=== PATIENT | female | born 1980 | race Two or more races ===

== ENCOUNTER 2020-03-09 14:46 | Outpatient (REF) | payer OTHER, SELFPAY | END 2020-03-09 14:47 | disposition home or self-care (01) | LOC: HO.LAB 14:46 | PROVIDERS: PCP Internal Medicine; Visit Provider Internal Medicine | DX: Z20.822 Contact with and (suspected) exposure to COVID-19 (principal) | CPT/HCPCS: 36415; C9803; U0003 ==

== ENCOUNTER 2020-07-07 08:00 | Outpatient (REF) | payer OTHER, SELFPAY ==
[2020-07-07 08:40] LABS: MANUAL DIFF FLAG NO
[2020-07-07 08:44] LABS: Basophils Percent Auto 0.3 % (0-2); Eosinophils Absolute Auto 0.1 X10*3/uL (0.0-0.4); Eosinophils Percent Auto 1.6 % (0-4); Hematocrit 40.1 % (37-47); Hemoglobin 13.4 g/dl (12.0-16.0); Imm Gran Abs Auto 0.01 X10*3/uL (0.00-0.03); Imm Gran Pct Auto 0.2 % (0.0-0.4); Lymphocytes Absolute Auto 2.2 X10*3/uL (1.2-4.9); Lymphocytes Percent Auto 35.1 % (20-40); Mean Corpuscular HGB Conc 33.4 g/dl (31.0-35.0); Mean Corpuscular Hemoglobin 27.1 pg (27.0-33.0); Mean Platelet Volume 9.6 fL (9.4-12.3); Monocytes Absolute Auto 0.6 X10*3/uL (0.1-1.2); Monocytes Percent Auto 8.6 % (2-11); Neutrophils Absolute Auto 3.5 X10*3/uL (2.0-8.3); Neutrophils Percent Auto 54.2 % (45-73); Platelet Count 253 X10*3/uL (160-400); Red Blood Count 4.95 X10*6/uL (4.20-5.50); Red Cell Distribution Width 12.3 % (11.0-16.0); White Blood Count 6.4 X10*3/uL (4.8-10.8)
[2020-07-07 09:18] LABS: Creatinine Urine 188.21 mg/dL; Microalbum/Creatinine Ratio Ur 20.1 ug/mg cr
[2020-07-07 09:24] LABS: Alanine Aminotransferase 108 U/L (0-31); Albumin Level 4.2 g/dL (3.5-5.0); Alkaline Phosphatase 84 U/L (39-117); Anion Gap 12 (12-20); Aspartate Amino Transferase 82 U/L (5-31); Bilirubin Total 1.1 mg/dL (0.0-1.0); Blood Urea Nitrogen 10 mg/dL (9-16); Calcium 9.7 mg/dL (8.4-10.2); Carbon Dioxide 27 mmol/L (22-29); Chloride 102 mmol/L (96-108); Cholesterol 176 mg/dL; Estimated Glomerular Filt Rate > 60; Glucose Fasting 279 mg/dL (60-99); HDL Cholesterol 36 mg/dL; LDL Cholesterol Calculated 97 mg/dl; Potassium 4.3 mmol/L (3.3-5.1); Sodium 137 mmol/L (135-145); Total Protein 7.6 g/dL (6.5-8.0); Triglycerides 218 mg/dL
[2020-07-07 09:26] LABS: TSH reflex Free T4 2.15 uIU/mL (0.32-4.0)
== END 2020-07-07 08:01 | disposition home or self-care (01) ==
LOC: HO.LAB 08:00
PROVIDERS: PCP Internal Medicine; Visit Provider Internal Medicine
DX: E11.65 Type 2 diabetes mellitus with hyperglycemia (principal); E66.01 Morbid (severe) obesity due to excess calories; G43.909 Migraine, unspecified, not intractable, without status migrainosus
CPT/HCPCS: 36415; 80053; 80061; 82043; 84443; 85025

== ENCOUNTER 2020-11-25 10:20 | Outpatient (REF) | payer OTHER, SELFPAY ==
[2020-11-25 11:54] LABS: Creatinine Urine 89.54 mg/dL; Microalbum/Creatinine Ratio Ur 34.6 ug/mg cr
[2020-11-25 12:05] LABS: Alanine Aminotransferase 71 U/L (0-31); Albumin Level 4.6 g/dL (3.5-5.0); Alkaline Phosphatase 84 U/L (39-117); Anion Gap 14 (12-20); Aspartate Amino Transferase 46 U/L (5-31); Bilirubin Total 0.8 mg/dL (0.0-1.0); Blood Urea Nitrogen 11 mg/dL (9-16); Calcium 9.9 mg/dL (8.4-10.2); Carbon Dioxide 25 mmol/L (22-29); Chloride 105 mmol/L (96-108); Estimated Glomerular Filt Rate > 60; Glucose Random 261 mg/dL (60-115); Potassium 4.6 mmol/L (3.3-5.1); Sodium 139 mmol/L (135-145); Total Protein 8.1 g/dL (6.5-8.0)
== END 2020-11-25 10:21 | disposition home or self-care (01) ==
LOC: HO.HMGCLDS 10:20
PROVIDERS: PCP Internal Medicine; Visit Provider Internal Medicine
DX: L02.93 Carbuncle, unspecified (principal); E11.65 Type 2 diabetes mellitus with hyperglycemia; K76.0 Fatty (change of) liver, not elsewhere classified; E66.01 Morbid (severe) obesity due to excess calories
CPT/HCPCS: 36415; 80053; 82043

== ENCOUNTER 2021-08-30 14:22 | Emergency (ER) | payer OTHER, SELFPAY | END 2021-08-30 16:45 | disposition left against medical advice (07) | PROVIDERS: Emergency Provider Emergency Medicine; PCP Internal Medicine | DX: M54.50 Low back pain, unspecified (principal) ==

== ENCOUNTER 2021-09-01 14:13 | Emergency (ER) | payer OTHER, SELFPAY ==
--- NOTE | ~2021-09-01 | CT_ITS ---
EXAMINATION: CT ABDOMEN AND PELVIS WITHOUT CONTRAST CLINICAL INFORMATION: Right flank and back pain COMPARISON: Previous CT of the abdomen and pelvis February 2018, renal ultrasound and pelvic ultrasound February 2019 TECHNIQUE: Multidetector volumetric imaging was performed from the superior aspect of the liver through the pubic symphysis. Sagittal and coronal reformatted images were obtained on the technologist's workstation. This CT examination was performed using dose optimization techniques as appropriate, variously including the following: *Automated exposure control *Adjustment of mA and/or kV according to patient size (this includes techniques or standardized protocols for targeted exams where dose is matched to indication/reason for exam; i.e. extremities or head) *Use of iterative reconstruction technique DLP: 640 mGy-cm FINDINGS: LUNG BASES: The visualized lung bases are unremarkable. LIVER, GALLBLADDER, AND BILIARY TREE: The liver is normal in size, shape, and attenuation. No focal hepatic lesion or biliary ductal dilatation is present. The gallbladder has been removed. PANCREAS: Unremarkable. SPLEEN: Unremarkable. ADRENAL GLANDS: Unremarkable. KIDNEYS AND URETERS: There are small stones in the lower pole of the right kidney, largest measuring 2 mm. The left kidney is normal. No hydronephrosis, ureteral dilatation or ureteral stone is seen. BLADDER: Unremarkable. GASTROINTESTINAL TRACT: The small and large bowel are unremarkable. The appendix is unremarkable. ABDOMINAL WALL: Small umbilical hernia containing fat. LYMPH NODES: Normal. VASCULAR: Unremarkable. PELVIC VISCERA: Unremarkable. OSSEOUS STRUCTURES: Unremarkable. CT/CT abdomen pelvis wo con IMPRESSION: Small right renal stones. Fleischner guidelines were followed.
[2021-09-01 14:47] VITALS: BP 116/77; PULSE 98; RESP 18; TEMP 36.8; O2SAT 97; BMI 34.1
[2021-09-01 15:38] LABS: Appearance Urine CLEAR; Color Urine YELLOW; Glucose Urine UA >=1000 MG/DL (NEG); Leukocyte Esterase Urine NEG (NEG); Nitrite Urine NEG (NEG); PH 5.5 (5.0-8.0); Specific Gravity - Urine 1.025 (1.005-1.025); Urine Blood NEG (NEG); Urine Ketones 15 MG/DL (NEG); Urine Protein NEG (NEG-TRACE)
[2021-09-01 15:41] LABS: UPreg QC Valid YES; Urine Pregnancy NEGATIVE (NEGATIVE)
[2021-09-01 15:49] LABS: MANUAL DIFF FLAG NO
[2021-09-01 15:50] LABS: Basophils Percent Auto 0.4 % (0-2); Eosinophils Absolute Auto 0.1 X10*3/uL (0.0-0.4); Eosinophils Percent Auto 1.1 % (0-4); Hematocrit 38.5 % (37.0-47.0); Hemoglobin 13.4 g/dl (12.0-16.0); Imm Gran Abs Auto 0.02 X10*3/uL (0.00-0.03); Imm Gran Pct Auto 0.2 % (0.0-0.4); Lymphocytes Absolute Auto 2.8 X10*3/uL (1.2-4.9); Lymphocytes Percent Auto 32.9 % (20-40); Mean Corpuscular HGB Conc 34.8 g/dl (31.0-35.0); Mean Corpuscular Hemoglobin 27.6 pg (27.0-33.0); Mean Corpuscular Volume 79.2 fL (80.0-98.0); Mean Platelet Volume 9.6 fL (9.4-12.3); Monocytes Absolute Auto 0.6 X10*3/uL (0.1-1.2); Monocytes Percent Auto 6.6 % (2-11); Neutrophils Percent Auto 58.8 % (45-73); Platelet Count 275 X10*3/uL (160-400); Red Blood Count 4.86 X10*6/uL (4.20-5.50); Red Cell Distribution Width 12.1 % (11.0-16.0); White Blood Count 8.5 X10*3/uL (4.8-10.8)
[2021-09-01 16:01] LABS: RBC Urine 0 /HPF (0); Squamous Epithelial Cell Urine 1+ /LPF
[2021-09-01 16:02] LABS: Bacteria Urine TRACE /LPF
[2021-09-01 16:07] LABS: Alanine Aminotransferase 101 U/L (0-31); Albumin Level 4.4 g/dL (3.5-5.0); Alkaline Phosphatase 87 U/L (39-117); Anion Gap 15 (12-20); Aspartate Amino Transferase 78 U/L (5-31); Bilirubin Direct 0.3 mg/dL (0.0-0.5); Blood Urea Nitrogen 9 mg/dL (9-16); Calcium 9.3 mg/dL (8.4-10.2); Carbon Dioxide 24 mmol/L (22-29); Chloride 101 mmol/L (96-108); Creatinine Clr Calc Pharmacy 106.3; Estimated Glomerular Filt Rate > 60; Glucose Random 281 mg/dL (60-115); Lipase 40 U/L (8-78); Sodium 136 mmol/L (135-145); Total Protein 7.9 g/dL (6.5-8.0)
--- NOTE | 2021-09-01 21:46 | ED_ITS ---
HPI - General Adult General Chief complaint: General Medical Stated complaint: back pain Time Seen by Provider: 09/01/21 17:59 Source: patient Mode of arrival: ambulatory Limitations: no limitations History of Present Illness HPI narrative: This is a 41-year-old female past medical history significant for lower back pain, migraines, diabetes presenting to the emergency department with complaints of right lower back pain that at times it radiates to her right leg just above the knee x6 days. Patient does not recognize an inciting injury, tells me the pain is worse with ambulation and urinating, better at rest. Patient tells me that she has a history of herniated discs however this feels different. She tel ls me that this pain is intermittent, severe in nature. She tells me she feels very uncomfortable. She denies urinary frequency, urgency and dysuria, IV drug abuse, previous back surgeries, chest pain, shortness of breath, fevers, chills, nausea and vomiting. Patient ambulating with steady gait into the room Related Data Previous Rx's Medication Instructions Recorded blood-glucose meter (FreeStyle #1 ea 07/11/20 Lite Meter) lancets 28 gauge (FreeStyle #100 ea 07/11/20 Lancets) blood sugar diagnostic (FreeStyle #100 ea 10/13/20 Lite Strips) dulaglutide 3 mg/0.5 mL 3 mg (0.5 mL) subcut QWEEK 90 days 06/21/21 subcutaneous pen injector #6.5 mL glipizide 10 mg tablet 10 mg PO BID 90 days #180 tabs 06/21/21 epinephrine 0.3 mg/0.3 mL 0.3 mg (0.3 mL) IM Q10M PRN 06/22/21 injection, auto-injector (EpiPen) anaphylaxis 90 days #1 ea lidocaine 5 % topical patch 1 patch topical DAILY PRN pain #15 09/01/21 ea oxycodone 5 mg capsule 5 mg PO BID PRN pain #8 caps 09/01/21 prednisone 20 mg tablet 20 mg PO DAILY 5 days #5 tabs 09/01/21 Allergies Allergy/AdvReac Type Severity Reaction Status Date / Time cefazolin [CEFAZOLIN] Allergy Mild LOCALIZED Verified 09/01/21 14:51 ITCHING AT INJECTION SITE shellfish derived Allergy Mild Itching Verified 09/01/21 14:51 cephalexin [CEPHALEXIN] Allergy Unknown UNKNOWN, Verified 09/01/21 14:51 ITCHING metronidazole [Flagyl] Allergy Unknown Unknown Verified 09/01/21 14:51 Review of Systems Review of Systems: Constitutional : No Weight loss, No Fever, No Chills, No Fatigue, No Malaise ENT/Mouth : No sore throat, No Rhinorrhea Eyes: No Eye Pain, No Swelling, No Redness Cardiovascular : No Chest Pain, No SOB, No Dyspnea on Exertion, No Orthopnea, No Edema, No Palpitations Respiratory : No Cough, No Sputum, No Wheezing Gastrointestinal : No Nausea, No Vomiting, No Diarrhea, No Constipation, No abdominal Pain, No Hematochezia, No Melena Genitourinary : No Dysuria, No Urinary Frequency, No Hematuria, Musculoskeletal : No joint pain, No Myalgias, No Joint Swelling, positive back pain Skin : No Skin Lesions, No rash Neuro : No Weakness, No Numbness, No Dizziness, No Headache Psych : No Anxiety/Panic, No Depression All other systems reviewed and are negative Yes all other systems are reviewed and are negative [facility] Past Medical History Attestation statement: The following information was validated with the patient. Source: old records reviewed and nursing notes reviewed Medical History Recurrent boils Social History Social History Housing: House Alcohol intake: never Patient Tobacco Use Status: Never used Tobacco e-Cigarette/Vaping Use: Never Used Second Hand Smoke Exposure: Yes (as a child) Advance Directives: No Advance Directives Information Provided: No Current occupational status: employed Cognitive needs: No Hearing needs: No Vision needs: No Physical Exam ED Vital Signs: Vital Signs - 24 hr 09/01/21 14:47 Temperature 98.2 F Pulse Rate 98 Respiratory Rate 18 Blood Pressure 116/77 Pulse Oximetry 97 Oxygen Delivery Method Room Air BMI result Body Mass Index 34.1 Vital signs stable Appearance: Alert.? Oriented X3.? No acute distress.? Patient nontoxic appearing Head: Normocephalic, atraumatic, no step-offs or deformities Eyes: Pupils equal, round and reactive to light.? ENT: Pharynx normal.? Neck: Normal inspection.? Neck supple.? CVS: Normal heart rate and rhythm.? Pulses normal.? Respiratory: No respiratory distress.? Breath sounds normal.? Abdomen: Soft and nontender.? Skin: Skin warm and dry.? Normal skin color.? Normal skin turgor.? Extremities: No lower extremity edema.? No calf ttp. 5/5 strength to bilateral upper and lower extremities Back: No midline tenderness, no C-spine tenderness, full range of motion, no CVA tenderness bilaterally, + pain with palpation to right paraspinous muscles. Neuro: Oriented X 3.? No motor deficit.? No sensory deficit. CN 2-12 intact . No saddle paresthesias, normal sensation to upper and lower extremities. 2+ patellar reflexes equal and bilateral. Patient ambulating with steady gait normal coordination. Course Reevaluation(s) Reevaluation #1: CBC within normal limits. Chemistry with no acute electrolyte abnormalities requiring intervention, AST and ALT is slightly elevated however they have been elevated in the past this appears to be chronic in nature. UA without infection. CT of the abdomen and pelvis with small right renal stones. Patient could have passed stones and may be passing new renal stones I could be contributing to her right sided flank pain, other differential includes sci atica. I explained to patient that I will send her home with medications for pain, prednisone and Lidoderm patches. I advised her to drink plenty of fluids, return with new or worsening symptoms. Advised her to follow-up with her PCP. At time of discharge patient feeling better, ambulating with steady gait, no further complaints. Neuro exam remains nonfocal, neurovascularly intact. No midline tenderness. Again reassuring this is likely sciatica and or patient passed a kidney stone. Time: 22:50 Medical Decision Making [facility] Narrative Medical decision making narrative: [id number] 41-year-old male presenting with 6 days of progressively worsening right-sided lower back pain/flank pain with intermittent radiation to the right lower extremity just above the knee. Patient does have history of back issues, she tells me she has multiple herniated discs however this feels different. Numbness, tingling or any other red flag symptoms. On examination there is reproducible pain with palpation of right paraspinous muscles, normal reflexes, normal sensation to upper and lower extremities, normal strength ambulating with steady gait, no saddle paresthesias. Likely sciatica. Will rule out kidney stones as patient tells me she had than 5 years ago when she forgets that they feel like although unlikely due to lack of urinary symptoms. Unlikely epidural abscess or cauda equina. Plan at this time is to obtain basic labs, urine, CT of the abdomen pelvis without contrast, will medicate with oxycodone for pain indicative normal saline. Medical Records Medical records reviewed: Yes I reviewed the patient's medical records. Lab Data Lab results reviewed: Yes I reviewed the patient's lab results. Result diagrams: 09/01/21 15:45 09/01/21 15:45 Labs: Lab Results 09/01/21 09/01/21 09/01/21 Range/Units 15:18 15:18 15:45 WBC 8.5 (4.8-10.8) X10*3/uL RBC 4.86 (4.20-5.50) X10*6/uL Hgb 13.4 (12.0-16.0) g/dl Hct 38.5 (37.0-47.0) % MCV 79.2 L (80.0-98.0) fL MCH 27.6 (27.0-33.0) pg MCHC 34.8 (31.0-35.0) g/dl RDW 12.1 (11.0-16.0) % Plt Count 275 (160-400) X10*3/uL MPV 9.6 (9.4-12.3) fL Immature Gran % (Auto) 0.2 (0.0-0.4) % Neut % (Auto) 58.8 (45-73) % Lymph % (Auto) 32.9 (20-40) % [place] % (Auto) 6.6 (2-11) % Eos % (Auto) 1.1 (0-4) % Baso % (Auto) 0.4 (0-2) % Lymph # (Auto) 2.8 (1.2-4.9) X10*3/uL [place] # (Auto) 0.6 (0.1-1.2) X10*3/uL Eos # (Auto) 0.1 (0.0-0.4) X10*3/uL Baso # (Auto) 0.0 (0.0-0.2) X10*3/uL Abs Immat Gran (auto) 0.02 (0.00-0.03) X10*3/uL Absolute Neuts (auto) 5.0 (2.0-8.3) x10*3/uL Absolute Nucleated RBC 0.000 (0.0-0.012) X10*3/uL Nucleated RBC % (auto) 0.0 (0.0-0.2) /100WBC Sodium (135-145) mmol/L Potassium (3.3-5.1) mmol/L Chloride (96-108) mmol/L Carbon Dioxide (22-29) mmol/L Anion Gap (12-20) BUN (9-16) mg/dL Creatinine (0.5-1.4) mg/dL Estim Creat Clear Calc Estimated GFR Random Glucose (60-115) mg/dL Calcium (8.4-10.2) mg/dL Total Bilirubin (0.0-1.0) mg/dL Direct Bilirubin (0.0-0.5) mg/dL AST (5-31) U/L ALT (0-31) U/L Alkaline Phosphatase (39-117) U/L Total Protein (6.5-8.0) g/dL Albumin (3.5-5.0) g/dL Lipase (8-78) U/L Urine Color YELLOW Urine Appearance CLEAR Urine pH 5.5 (5.0-8.0) Ur Specific [place] 1.025 (1.005-1.025) Urine Protein NEG (NEG-TRACE) MG/DL Urine Glucose (UA) >=1000 H (NEG) MG/DL Urine Ketones 15 (NEG) MG/DL Urine Blood NEG (NEG) Urine Nitrite NEG (NEG) Ur Leukocyte Esterase NEG (NEG) Urine RBC 0 (0) /HPF Urine WBC 1-4 (0-4) /HPF Ur Squamous Epith Cells 1+ /LPF Urine Bacteria TRACE /LPF Urine Test NEGATIVE (NEGATIVE) 09/01/21 Range/Units 15:45 WBC (4.8-10.8) X10*3/uL RBC (4.20-5.50) X10*6/uL Hgb (12.0-16.0) g/dl Hct (37.0-47.0) % MCV (80.0-98.0) fL MCH (27.0-33.0) pg MCHC (31.0-35.0) g/dl RDW (11.0-16.0) % Plt Count (160-400) X10*3/uL MPV (9.4-12.3) fL Immature Gran % (Auto) (0.0-0.4) % Neut % (Auto) (45-73) % Lymph % (Auto) (20-40) % [place] % (Auto) (2-11) % Eos % (Auto) (0-4) % Baso % (Auto) (0-2) % Lymph # (Auto) (1.2-4.9) X10*3/uL [place] # (Auto) (0.1-1.2) X10*3/uL Eos # (Auto) (0.0-0.4) X10*3/uL Baso # (Auto) (0.0-0.2) X10*3/uL Abs Immat Gran (auto) (0.00-0.03) X10*3/uL Absolute Neuts (auto) (2.0-8.3) x10*3/uL Absolute Nucleated RBC (0.0-0.012) X10*3/uL Nucleated RBC % (auto) (0.0-0.2) /100WBC Sodium 136 (135-145) mmol/L Potassium 4.0 (3.3-5.1) mmol/L Chloride 101 (96-108) mmol/L Carbon Dioxide 24 (22-29) mmol/L Anion Gap 15 (12-20) BUN 9 (9-16) mg/dL Creatinine 0.80 (0.5-1.4) mg/dL Estim Creat Clear Calc 106.3 Estimated GFR > 60 Random Glucose 281 H (60-115) mg/dL Calcium 9.3 D (8.4-10.2) mg/dL Total Bilirubin 1.0 (0.0-1.0) mg/dL Direct Bilirubin 0.3 (0.0-0.5) mg/dL AST 78 H (5-31) U/L ALT 101 H (0-31) U/L Alkaline Phosphatase 87 (39-117) U/L Total Protein 7.9 (6.5-8.0) g/dL Albumin 4.4 (3.5-5.0) g/dL Lipase 40 (8-78) U/L Urine Color Urine Appearance Urine pH (5.0-8.0) Ur Specific [place] (1.005-1.025) Urine Protein (NEG-TRACE) MG/DL Urine Glucose (UA) (NEG) MG/DL Urine Ketones (NEG) MG/DL Urine Blood (NEG) Urine Nitrite (NEG) Ur Leukocyte Esterase (NEG) Urine RBC (0) /HPF Urine WBC (0-4) /HPF Ur Squamous Epith Cells /LPF Urine Bacteria /LPF Urine Test (NEGATIVE) Critical Care Time Critical Care Time Critical Care Time: No Discharge Plan Discharge Clinical Impression: Sciatica, Renal calculi Patient Disposition: Home, Self-Care Instructions: Kidney Stones (ED), Sciatica (ED), Back Pain (ED) Additional Instructions: Take your medications as prescribed. If you were prescribed antibiotics today, it is important that you take your medication to their entirety, do not skip any doses, do not finish them early. Follow-up with your primary care provider this week. Follow-up with [facility] for your chronic back issues. Return to the emergency department with new or worsening symptoms. Such as fevers, chills, chest pain, shortness of breath, nausea, vomiting, dizziness, headache, vision changes, lethargy, loss of urine/bowel control, weakness, inability to ambulate. In case of emergency call 911 Prescriptions: New prednisone 20 mg tablet 20 mg PO DAILY 5 Days Qty: 5 0RF lidocaine 5 % adhesive patch,medicated 1 patch topical DAILY PRN (Reason: pain) Qty: 15 0RF Rx Instructions: leave on most painful area for up to 12 hrs oxycodone 5 mg capsule 5 mg PO BID PRN (Reason: pain) Qty: 8 0RF Rx Instructions: Partial Fill upon patient request. No Action (DME) FreeStyle Lite Strips Strip See Rx Instructions .ROUTE .MEDSUPPLY Qty: 100 0RF Rx Instructions: patient to check blood sugar daily epinephrine [EpiPen] 0.3 mg/0.3 mL auto-injector 0.3 mg IM Q10M PRN (Reason: anaphylaxis) 90 Days Qty: 1 0RF (DME) blood-glucose meter [FreeStyle Lite Meter] Kit See Rx Instructions .ROUTE .MEDSUPPLY Qty: 1 0RF Rx Instructions: patient to check blood sugar daily (DME) lancets [FreeStyle Lancets] 28 gauge misc See Rx Instructions .ROUTE .MEDSUPPLY Qty: 100 0RF Rx Instructions: patient to check blood sugar daily as needed glipizide 10 mg tablet 10 mg PO BID 90 Days Qty: 180 1RF dulaglutide 3 mg/0.5 mL pen injector 3 mg subcut QWEEK 90 Days Qty: 6.5 0RF Referrals: [facility] [Provider Group] - 1 week
[2021-09-01] MEDS: oxyCODONE HCl Immed Release 5 MG TABLET PO (21:47)
[2021-09-01] MEDS: 0.9 % Sodium Chloride 1,000 ML 999 ML IV (21:48)
== END 2021-09-01 23:13 | disposition home or self-care (01) ==
PROVIDERS: Emergency Provider Student in an Organized Health Care Education/Training Program; PCP Internal Medicine
DX: M54.41 Lumbago with sciatica, right side (principal); N20.0 Calculus of kidney; E11.9 Type 2 diabetes mellitus without complications; E66.01 Morbid (severe) obesity due to excess calories; Z68.34 Body mass index [BMI] 34.0-34.9, adult; Z79.899 Other long term (current) drug therapy
CPT/HCPCS: 36415; 74176; 80048; 80076; 81001; 81025; 83690; 85025; 96360; 99283; 99284

== ENCOUNTER 2021-10-17 09:37 | Emergency (ER) | payer OTHER, SELFPAY ==
[2021-10-17 09:51] VITALS: BP 141/91; PULSE 93; RESP 18; TEMP 36.3; O2SAT 100; BMI 35.2
--- NOTE | 2021-10-17 09:56 | ECG_ITS ---
Test Reason : ALLERGIC REACTION Blood Pressure : / mmHG Vent. Rate : 083 BPM Atrial Rate : 083 BPM P-R Int : 142 ms QRS Dur : 076 ms QT Int : 372 ms P-R-T Axes : 002 -10 007 degrees QTc Int : 437 ms Normal sinus rhythm Minimal voltage criteria for LVH, may be normal variant ( R in aVL ) Borderline ECG When compared with ECG of 22-OCT-2018 23:01, QRS axis Shifted left T wave inversion no longer evident in Lateral leads Heart rate has decreased Referred By: Generic ED Physician Electronically Signed By:JACKIE FLEMING
--- NOTE | 2021-10-17 10:09 | ED_ITS ---
HPI - Allergic Reaction General Chief complaint: Allergic Reaction Stated complaint: Allergic reaction to meds? Time Seen by Provider: 10/17/21 10:09 Source: patient Mode of arrival: ambulatory Limitations: no limitations History of Present Illness HPI narrative: 41-year-old female with a history of diabetes on insulin, obesity, migraine headaches, fatty liver who presents to the ER for evaluation of chest tightness and sensation of throat closing that started about 1 hour after she used her Trulicity this morning. She states she recently took the last couple of weeks off of Trulicity because she has been having diarrhea after she takes it. Her provider increased the dose due to poor glucose control and today was the 1st day she took the higher dose. She took it at around 06:45 this morning and then about an hour later started feeling chest tightness and throat tightness. She states this was the same sensation she has had in the past with seafood allergy. She has an EpiPen at home but she did not use it. She has not taken any Benadryl. She denies any rash or facial swelling. On arrival to the ER she reports worsening symptoms, new onset of nausea. She has only had coffee this morning, nothing to eat. She did not take her glipizide this morning. MD complaint: allergic reaction Onset (ago): hour(s) Exposure: medication Symptoms: difficulty swallowing, difficulty breathing and nausea Severity: moderate Treatment prior to arrival: none Related Data Previous Rx's Medication Instructions Recorded blood-glucose meter (FreeStyle #1 ea 07/11/20 Lite Meter kit) lancets 28 gauge (FreeStyle #100 ea 07/11/20 Lancets) blood sugar diagnostic (FreeStyle #100 ea 10/13/20 Lite Strips) dulaglutide 3 mg/0.5 mL 3 mg (0.5 mL) subcut QWEEK 90 days 06/21/21 subcutaneous pen injector #6.5 mL glipizide 10 mg tablet 10 mg PO BID 90 days #180 tabs 06/21/21 epinephrine 0.3 mg/0.3 mL 0.3 mg (0.3 mL) IM Q10M PRN 06/22/21 injection, auto-injector (EpiPen) anaphylaxis 90 days #1 ea lidocaine 5 % topical patch 1 patch topical DAILY PRN pain #15 09/01/21 ea oxycodone 5 mg capsule 5 mg PO BID PRN pain #8 caps 09/01/21 prednisone 20 mg tablet 20 mg PO DAILY 5 days #5 tabs 09/01/21 Allergies Allergy/AdvReac Type Severity Reaction Status Date / Time cefazolin [CEFAZOLIN] Allergy Mild LOCALIZED Verified 09/01/21 14:51 ITCHING AT INJECTION SITE shellfish derived Allergy Mild Itching Verified 09/01/21 14:51 cephalexin [CEPHALEXIN] Allergy Unknown UNKNOWN, Verified 09/01/21 14:51 ITCHING metronidazole [Flagyl] Allergy Unknown Unknown Verified 09/01/21 14:51 Review of Systems Review of Systems: Constitutional: No Fever, No Chills ENT/Mouth: + sore throat, No Rhinorrhea, + Swallowing Difficulty Eyes: No Eye Pain, No Swelling, No Redness Cardiovascular: + Chest Pain, No SOB, No Orthopnea, No Edema Respiratory: No Cough, No Sputum, No Wheezing, No dyspnea Gastrointestinal: + Nausea, No Vomiting, No Diarrhea, No abdominal Pain Musculoskeletal: No joint pain, No Myalgias Skin: No Skin Lesions, No rash Neuro: No Weakness, No Numbness, No Dizziness, + Headache Psych: + Anxiety/Panic, No Depression Heme/Lymph: No Bruising, No Lymphadenopathy Endocrine: No Polyuria, No Polydipsia PMFSH Past Medical History Medical History Recurrent boils Social History Social History Housing: House Alcohol intake: never Patient Tobacco Use Status: Never used Tobacco e-Cigarette/Vaping Use: Never Used Second Hand Smoke Exposure: Yes (as a child) Advance Directives: No Advance Directives Information Provided: Yes Current occupational status: employed Cognitive needs: No Hearing needs: No Vision needs: No Physical Exam ED Vital Signs: Vital Signs - 24 hr 10/17/21 09:51 10/17/21 11:10 Temperature 97.3 F 97.3 F Pulse Rate 93 86 Respiratory Rate 18 12 Blood Pressure 141/91 H 128/84 Pulse Oximetry 100 96 Oxygen Delivery Method Room Air Room Air BMI result Body Mass Index 35.2 Appearance: Alert. Oriented X3. No acute distress. Eyes: Pupils equal, round and reactive to light. ENT: Pharynx normal. Airways patent. Uvula midline. Normal voice, handling secretions normally. No visible oral swelling. Neck: Normal inspection. Neck supple. No lymphadenopathy. CVS: Normal heart rate and rhythm. Pulses normal. Respiratory: No respiratory distress. Breath sounds normal. Abdomen: Soft and nontender. +BS x4 Skin: Skin warm and dry. Normal skin color. Normal skin turgor. No rashes. Extremities: No lower extremity edema. Neuro: Oriented X 3. Grossly normal, nonfocal, slightly anxious. Course Course Course Narrative: 41-year-old female presents to the ER for the evaluation of a possible allergic reaction to Trulicity. She has been on it for over 6 months but had a recent dose increase and had did not take it for the last 2 weeks. On arrival to the ER her vital signs within normal limits. No objective signs of an allergic reaction. She feels some throat tightening but her airway appears to be patent. She reports feeling the same way she did when she had allergic reaction to seafood. Will give her a dose of Benadryl and monitor closely. Will also give her dose of Reglan for reported nausea. Will monitor closely and reassess. Reevaluation(s) Reevaluation #1: Patient is feeling much better. She would like to go home. She will follow-up with Dr. Sandhu for further recommendations regarding her Trulicity. Stable for DC home. MDM - Allergic Reaction Medical Records Attestation: I reviewed the patient's medical records. Lab Data Attestation: I reviewed the patient's lab results. Labs: Lab Results 10/17/21 Range/Units 10:18 POC Glucose 187 H (60-115) mg/dL ECG Data Attestation: I personally reviewed and interpreted this ECG as follows: ECG interpretation date: 10/17/21 ECG interpretation time: 11:19 Interpretation: But normal sinus rhythm, ventricular rate 83 beats per minute, no ST segment elevations or depressions. Normal ID interval. Normal QTC. Critical Care Time Critical Care Time Critical Care Time: No Discharge Plan Discharge Clinical Impression: Allergic reaction Patient Disposition: Home, Self-Care Additional Instructions: If you have any new or recurrent symptoms of possible allergic reaction recommend taking 50 mg of Benadryl right away. If you developed difficulty breathing, swelling of your face or throat or any other concerning symptoms call 911 or come back to the ER for further e valuation. Talk your doctor about continuing Trulicity verses changing to a different medication. Prescriptions: No Action (DME) FreeStyle Lite Strips Strip See Rx Instructions .ROUTE .MEDSUPPLY Qty: 100 0RF Rx Instructions: patient to check blood sugar daily epinephrine [EpiPen] 0.3 mg/0.3 mL auto-injector 0.3 mg IM Q10M PRN (Reason: anaphylaxis) 90 Days Qty: 1 0RF prednisone 20 mg tablet 20 mg PO DAILY 5 Days Qty: 5 0RF lidocaine 5 % adhesive patch,medicated 1 patch topical DAILY PRN (Reason: pain) Qty: 15 0RF Rx Instructions: leave on most painful area for up to 12 hrs oxycodone 5 mg capsule 5 mg PO BID PRN (Reason: pain) Qty: 8 0RF Rx Instructions: Partial Fill upon patient request. (DME) blood-glucose meter [FreeStyle Lite Meter] Kit See Rx Instructions .ROUTE .MEDSUPPLY Qty: 1 0RF Rx Instructions: patient to check blood sugar daily (DME) lancets [FreeStyle Lancets] 28 gauge misc See Rx Instructions .ROUTE .MEDSUPPLY Qty: 100 0RF Rx Instructions: patient to check blood sugar daily as needed glipizide 10 mg tablet 10 mg PO BID 90 Days Qty: 180 1RF dulaglutide 3 mg/0.5 mL pen injector 3 mg subcut QWEEK 90 Days Qty: 6.5 0RF Referrals: Naz Sandhu MD [Primary Care Provider] - Print Language: Albanian
[2021-10-17 10:21] LABS: Glucose, Whole Blood 187 mg/dL (60-115)
[2021-10-17 11:10] VITALS: BP 128/84; PULSE 86; RESP 12; TEMP 36.3; O2SAT 96
[2021-10-17] MEDS: Metoclopramide HCl 10 MG TABLET PO (11:11)
[2021-10-17] MEDS: diphenhydrAMINE HCL 25 MG TABLET 50 MG PO (11:11)
== END 2021-10-17 12:30 | disposition home or self-care (01) ==
PROVIDERS: Emergency Provider Emergency Medicine; PCP Internal Medicine
DX: T78.40XA Allergy, unspecified, initial encounter (principal); R13.10 Dysphagia, unspecified; J02.9 Acute pharyngitis, unspecified; X58.XXXA Exposure to other specified factors, initial encounter; F41.9 Anxiety disorder, unspecified
CPT/HCPCS: 82947; 93005; 99283; Q0163

== ENCOUNTER 2021-12-08 11:26 | Emergency (ER) | payer OTHER, SELFPAY ==
[2021-12-08 11:32] VITALS: BP 135/86; PULSE 91; RESP 18; TEMP 36.9; O2SAT 100; BMI 35.2
[2021-12-08 12:30] LABS: MANUAL DIFF FLAG NO
[2021-12-08 12:32] LABS: Basophils Percent Auto 0.3 % (0-2); Eosinophils Absolute Auto 0.1 X10*3/uL (0.0-0.4); Eosinophils Percent Auto 1.5 % (0-4); Hematocrit 40.6 % (37.0-47.0); Hemoglobin 13.8 g/dl (12.0-16.0); Imm Gran Abs Auto 0.01 X10*3/uL (0.00-0.03); Imm Gran Pct Auto 0.1 % (0.0-0.4); Lymphocytes Absolute Auto 2.7 X10*3/uL (1.2-4.9); Lymphocytes Percent Auto 39.6 % (20-40); Mean Corpuscular Hemoglobin 27.1 pg (27.0-33.0); Mean Corpuscular Volume 79.8 fL (80.0-98.0); Mean Platelet Volume 9.9 fL (9.4-12.3); Monocytes Absolute Auto 0.5 X10*3/uL (0.1-1.2); Monocytes Percent Auto 7.7 % (2-11); Neutrophils Absolute Auto 3.4 x10*3/uL (2.0-8.3); Neutrophils Percent Auto 50.8 % (45-73); Platelet Count 258 X10*3/uL (160-400); Red Blood Count 5.09 X10*6/uL (4.20-5.50); Red Cell Distribution Width 12.2 % (11.0-16.0); White Blood Count 6.7 X10*3/uL (4.8-10.8)
[2021-12-08 12:34] LABS: Appearance Urine Cloudy; Color Urine Yellow; Glucose Urine UA >=1000 mg/dL (Negative); Leukocyte Esterase Urine Moderate (2+) (Negative); Nitrite Urine Negative (Negative); PH 6.5 (5.0-9.0); Specific Gravity - Urine >= 1.030 (1.005-1.025); UMIC TRIGGER UACC YES; Urine Blood Trace (Negative); Urine Ketones Trace mg/dL (Negative); Urine Protein Trace mg/dL (Neg-Trace)
[2021-12-08 12:36] LABS: Bacteria Urine 4+ (None Seen); Hyaline Casts Urine 0-2 /LPF (0-2); RBC Urine 0-2 /HPF (0-2); UACC Culture Trigger YES; WBC Urine >50 /HPF (0-5)
[2021-12-08 12:46] LABS: COVID-19 Test Negative (Negative); IDNOW Serial# 16C4AD1C
[2021-12-08 12:56] LABS: Alanine Aminotransferase 117 U/L (0-31); Albumin Level 4.7 g/dL (3.5-5.0); Alkaline Phosphatase 80 U/L (39-117); Anion Gap 16 (12-20); Aspartate Amino Transferase 98 U/L (5-31); Bilirubin Total 1.5 mg/dL (0.0-1.0); Blood Urea Nitrogen 7 mg/dL (9-16); Calcium 9.6 mg/dL (8.4-10.2); Carbon Dioxide 24 mmol/L (22-29); Chloride 103 mmol/L (96-108); Creatinine Clr Calc Pharmacy 105.7; Estimated Glomerular Filt Rate > 60; Glucose Random 225 mg/dL (60-115); Potassium 4.2 mmol/L (3.3-5.1); Sodium 139 mmol/L (135-145); Total Protein 8.2 g/dL (6.5-8.0)
== END 2021-12-08 18:08 | disposition left against medical advice (07) ==
PROVIDERS: Emergency Provider Emergency Medicine; PCP Internal Medicine
DX: R51.9 Headache, unspecified (principal); Z20.822 Contact with and (suspected) exposure to COVID-19
CPT/HCPCS: 80053; 81001; 85025; 87086; 87635; 99282; 99283

== ENCOUNTER 2022-01-26 11:21 | Outpatient (REF) | payer OTHER, SELFPAY ==
[2022-01-26 14:12] LABS: MANUAL DIFF FLAG NO
[2022-01-26 14:27] LABS: Basophils Percent Auto 0.4 % (0-2); Eosinophils Absolute Auto 0.1 X10*3/uL (0.0-0.4); Eosinophils Percent Auto 1.1 % (0-4); Hematocrit 41.1 % (37.0-47.0); Hemoglobin 13.8 g/dl (12.0-16.0); Imm Gran Abs Auto 0.02 X10*3/uL (0.00-0.03); Imm Gran Pct Auto 0.3 % (0.0-0.4); Lymphocytes Absolute Auto 2.3 X10*3/uL (1.2-4.9); Lymphocytes Percent Auto 32.7 % (20-40); Mean Corpuscular HGB Conc 33.6 g/dl (31.0-35.0); Mean Corpuscular Hemoglobin 26.7 pg (27.0-33.0); Mean Corpuscular Volume 79.7 fL (80.0-98.0); Monocytes Absolute Auto 0.5 X10*3/uL (0.1-1.2); Monocytes Percent Auto 7.3 % (2-11); Neutrophils Absolute Auto 4.1 x10*3/uL (2.0-8.3); Neutrophils Percent Auto 58.2 % (45-73); Platelet Count 276 X10*3/uL (160-400); Red Blood Count 5.16 X10*6/uL (4.20-5.50)
[2022-01-26 15:13] LABS: Creatinine Urine 146.03 mg/dL; Microalbum/Creatinine Ratio Ur 36.2 ug/mg cr
[2022-01-26 15:37] LABS: Estimated Average Glucose 263 mg/dL; Hemoglobin A1c % 10.8 %
[2022-01-26 16:51] LABS: Alanine Aminotransferase 93 U/L (0-31); Albumin Level 4.4 g/dL (3.5-5.0); Alkaline Phosphatase 74 U/L (39-117); Anion Gap 10 (12-20); Aspartate Amino Transferase 75 U/L (5-31); Bilirubin Total 1.4 mg/dL (0.0-1.0); Blood Urea Nitrogen 7 mg/dL (9-16); Calcium 9.2 mg/dL (8.4-10.2); Carbon Dioxide 26 mmol/L (22-29); Chloride 104 mmol/L (96-108); Cholesterol 164 mg/dL; Estimated Glomerular Filt Rate > 60; Glucose Fasting 227 mg/dL (60-99); HDL Cholesterol 42 mg/dL; LDL Cholesterol Calculated 95 mg/dl; Potassium 4.1 mmol/L (3.3-5.1); Sodium 136 mmol/L (135-145); TSH reflex Free T4 0.66 uIU/mL (0.32-4.0); Total Protein 7.5 g/dL (6.5-8.0); Triglycerides 139 mg/dL
[2022-01-30 07:49] LABS: TS Negative Control Passed; TS Panel A 0; TS Panel B 1; TS Positive Control Passed; TSpotTB Negative (Negative)
== END 2022-01-26 11:22 | disposition home or self-care (01) ==
LOC: HO.HMGCLDS 11:21
PROVIDERS: PCP Internal Medicine; Visit Provider Emergency Medicine
DX: Z02.1 Encounter for pre-employment examination (principal); Z11.1 Encounter for screening for respiratory tuberculosis; E11.65 Type 2 diabetes mellitus with hyperglycemia; E66.01 Morbid (severe) obesity due to excess calories; K76.0 Fatty (change of) liver, not elsewhere classified
CPT/HCPCS: 36415; 80053; 80061; 82043; 83036; 84443; 85025; 86481

== ENCOUNTER → 2022-03-12 13:20 | Outpatient (BNVA) | payer OTHER, SELFPAY | PROVIDERS: PCP Internal Medicine; Visit Provider Internal Medicine | DX: M54.16 Radiculopathy, lumbar region (principal); M54.50 Low back pain, unspecified | CPT/HCPCS: 99202 ==

== ENCOUNTER → 2022-03-27 13:18 | Outpatient (BNVA) | payer OTHER, SELFPAY | PROVIDERS: PCP Internal Medicine; Visit Provider Physician Assistant Medical | DX: S46.812A Strain of other muscles, fascia and tendons at shoulder and upper arm level, left arm, initial encounter (principal); S46.912A Strain of unspecified muscle, fascia and tendon at shoulder and upper arm level, left arm, initial encounter; S29.012A Strain of muscle and tendon of back wall of thorax, initial encounter; Y04.2XXA Assault by strike against or bumped into by another person, initial encounter | CPT/HCPCS: 99203 ==

== ENCOUNTER 2022-06-01 22:28 | Emergency (ER) | payer OTHER, SELFPAY ==
--- NOTE | 2022-06-01 | ECG_ITS ---
Test Reason : CHEST PAIN Blood Pressure : / mmHG Vent. Rate : 089 BPM Atrial Rate : 089 BPM P-R Int : 138 ms QRS Dur : 078 ms QT Int : 374 ms P-R-T Axes : -07 -02 007 degrees QTc Int : 455 ms Normal sinus rhythm Minimal voltage criteria for LVH, may be normal variant ( R in aVL ) Borderline ECG When compared with ECG of 17-OCT-2021 09:58, No significant change was found Referred By: Generic ED Physician Electronically Signed By:JOVAN SEE MD
[2022-06-01 22:35] VITALS: BP 133/74; PULSE 74; RESP 16; TEMP 36.1; O2SAT 100; BMI 34.1
[2022-06-01 22:45] LABS: Hematocrit 35.1 % (37.0-47.0); Hemoglobin 11.7 g/dl (12.0-16.0); Mean Corpuscular HGB Conc 33.3 g/dl (31.0-35.0); Mean Corpuscular Hemoglobin 28.1 pg (27.0-33.0); Mean Corpuscular Volume 84.4 fL (80.0-98.0); Platelet Count 263 X10*3/uL (160-400); Red Blood Count 4.16 X10*6/uL (4.20-5.50); Red Cell Distribution Width 13.6 % (11.0-16.0); White Blood Count 7.5 X10*3/uL (4.8-10.8)
[2022-06-01 23:04] LABS: Alanine Aminotransferase 26 U/L (0-31); Albumin Level 4.2 g/dL (3.5-5.0); Alkaline Phosphatase 51 U/L (39-117); Anion Gap 13 (12-20); Aspartate Amino Transferase 26 U/L (5-31); Bilirubin Total 1.5 mg/dL (0.0-1.0); Blood Urea Nitrogen 16 mg/dL (9-16); Calcium 9.2 mg/dL (8.4-10.2); Carbon Dioxide 23 mmol/L (22-29); Chloride 107 mmol/L (96-108); Creatinine Clr Calc Pharmacy 106.3; Estimated Glomerular Filt Rate > 60; Glucose Random 66 mg/dL (60-115); Potassium 3.6 mmol/L (3.3-5.1); Sodium 139 mmol/L (135-145)
[2022-06-01 23:10] LABS: Troponin-I High Sensitivity 2.9 ng/L (<3.5-17.0)
[2022-06-01 23:49] VITALS: BP 117/67; PULSE 81; RESP 21; O2SAT 98
--- NOTE | 2022-06-02 00:16 | ED.CHESTPAIN ---
HPI - Chest Pain General Chief Complaint: Chest Pain Stated Complaint: Chest pain Time Seen by Provider: 06/02/22 00:13 Source: patient Mode of arrival: ambulatory Limitations: no limitations History of Present Illness HPI narrative: Patient diabetic noticed for last 1 week being very tired gaining weight about 10 lb in 1 week swollen legs and today noticed sharp chest pain started earlier today lasting only for few seconds also feeling dizzy and lightheaded at this time patient does not have any pain Related Data Home Medications Medication Instructions Recorded Confirmed cyclobenzaprine 10 mg tablet 10 mg PO TID 03/12/22 03/12/22 Previous Rx's Medication Instructions Recorded blood-glucose meter (FreeStyle #1 ea 07/11/20 Lite Meter kit) glipizide 10 mg tablet 10 mg PO BID 90 days #180 tabs 06/21/21 epinephrine 0.3 mg/0.3 mL 0.3 mg (0.3 mL) IM Q10M PRN 06/22/21 injection, auto-injector (EpiPen) anaphylaxis 90 days #1 ea lidocaine 5 % topical patch 1 patch topical DAILY PRN pain #15 09/01/21 ea blood sugar diagnostic (FreeStyle #100 ea 03/08/22 Lite Strips) lancets 28 gauge (FreeStyle #100 ea 03/08/22 Lancets) gabapentin 300 mg capsule 300 mg PO BID #60 caps 03/12/22 cyclobenzaprine 10 mg tablet See Rx Instructions PO BEDTIME #5 03/27/22 tabs pioglitazone 30 mg tablet (Actos) 30 mg PO DAILY 90 days #90 tabs 04/04/22 hydrochlorothiazide 12.5 mg tablet 12.5 mg PO QAM #30 tabs 06/02/22 Allergies Allergy/AdvReac Type Severity Reaction Status Date / Time cefazolin [CEFAZOLIN] Allergy Mild LOCALIZED Verified 03/12/22 13:42 ITCHING AT INJECTION SITE shellfish derived Allergy Mild Itching Verified 03/12/22 13:42 cephalexin [CEPHALEXIN] Allergy Unknown UNKNOWN, Verified 03/12/22 13:42 ITCHING metronidazole [Flagyl] Allergy Unknown Unknown Verified 03/12/22 13:42 Review of Systems Review of Systems: Yes all other systems are reviewed and are negative PMFSH Past Medical History Medical History Pre-employment examination Recurrent boils Social History Social History Housing: House Alcohol intake: never Patient Tobacco Use Status: Never used Tobacco Smoked in Last 30 Days: No e-Cigarette/Vaping Use: Never Used Second Hand Smoke Exposure: Yes (as a child) Use of substances other than those prescribed or required for medical reasons: No Advance Directives: No Advance Directives Information Provided: Yes Patient : No Current occupational status: employed Cognitive needs: No Hearing needs: No Vision needs: No Physical Exam Vital Signs: Vital Signs: Last Vital Signs Temp 97.0 F 06/01/22 22:35 Pulse 84 06/02/22 01:00 Resp 16 06/02/22 01:00 BP 113/58 L 06/02/22 00:57 Pulse Ox 99 06/02/22 00:57 O2 Del Method Room Air 06/02/22 00:57 BMI result Body Mass Index 34.1 Appearance: Alert. Oriented X3. No acute distress. Eyes: PERRLA, No Nystagmus ENT: Pharynx normal. Oral Mucosa moist thyroid not palpable Neck: Normal inspection. Neck supple. CVS: Normal heart rate and rhythm. Pulses normal. Respiratory: No respiratory distress. Equal air entry bilateral, no wheezing/rales/rhonchi Abdomen: Soft and nontender. Bowel sounds are present, no mass palpable, no CVA tenderness Skin: Skin warm and dry. Normal skin color. Normal skin turgor. Extremities: 1+ lower extremity edema. No calf tenderness Neuro: Oriented X 3. No motor deficit. No sensory deficit.No cerebellar signs , cranial nerves II-XII intact Medications Administered Discontinued Medications Generic Name Dose Route Start Last Admin Trade Name Freq PRN Reason Stop Dose Admin Albuterol Sulfate 5 mg/ 0 mg 06/02/22 00:37 06/02/22 01:00 Albuterol/Ipratropium 3 ml INHALE 06/02/22 00:38 1 each ONCE ONE Administration Gabapentin 100 mg 06/02/22 00:34 06/02/22 00:54 Gabapentin 100 Mg Capsule PO 06/02/22 00:35 100 mg ONCE ONE Administration Medical Decision Making Medical Decision Making MDM Narrative: Patient atypical chest pain assess her troponin EKG etiology for weight gain not very clear likely diet patient has normal TSH and BNP . Patient advised to have diet modification and hydrochlorothiazide daily as needed for leg swelling Differential Diagnosis Hypothyroidism/CHF/liver disease Lab Data MDM Lab Attestation statement: I reviewed the patient's lab results. 06/01/22 22:36 06/01/22 22:36 Labs: Lab Results 06/01/22 06/01/22 06/01/22 Range/Units 22:36 22:36 22:36 WBC 7.5 (4.8-10.8) X10*3/uL RBC 4.16 L (4.20-5.50) X10*6/uL Hgb 11.7 L (12.0-16.0) g/dl Hct 35.1 L (37.0-47.0) % MCV 84.4 (80.0-98.0) fL MCH 28.1 (27.0-33.0) pg MCHC 33.3 (31.0-35.0) g/dl RDW 13.6 (11.0-16.0) % Plt Count 263 (160-400) X10*3/uL MPV 9.0 L (9.4-12.3) fL Absolute Nucleated RBC 0.000 (0.0-0.012) X10*3/uL Nucleated RBC % (auto) 0.0 (0.0-0.2) /100WBC Sodium 139 (135-145) mmol/L Potassium 3.6 (3.3-5.1) mmol/L Chloride 107 (96-108) mmol/L Carbon Dioxide 23 (22-29) mmol/L Anion Gap 13 (12-20) BUN 16 (9-16) mg/dL Creatinine 0.80 (0.5-1.4) mg/dL Estim Creat Clear Calc 106.3 Estimated GFR > 60 Random Glucose 66 (60-115) mg/dL Calcium 9.2 (8.4-10.2) mg/dL Total Bilirubin 1.5 H (0.0-1.0) mg/dL AST 26 (5-31) U/L ALT 26 (0-31) U/L Alkaline Phosphatase 51 (39-117) U/L Troponin I High Sens 2.9 (<3.5-17.0) ng/L B-Natriuretic Peptide (<100) pg/mL Total Protein 7.0 (6.5-8.0) g/dL Albumin 4.2 (3.5-5.0) g/dL TSH 1.07 (0.32-4.0) uIU/mL 06/01/22 Range/Units 22:36 WBC (4.8-10.8) X10*3/uL RBC (4.20-5.50) X10*6/uL Hgb (12.0-16.0) g/dl Hct (37.0-47.0) % MCV (80.0-98.0) fL MCH (27.0-33.0) pg MCHC (31.0-35.0) g/dl RDW (11.0-16.0) % Plt Count (160-400) X10*3/uL MPV (9.4-12.3) fL Absolute Nucleated RBC (0.0-0.012) X10*3/uL Nucleated RBC % (auto) (0.0-0.2) /100WBC Sodium (135-145) mmol/L Potassium (3.3-5.1) mmol/L Chloride (96-108) mmol/L Carbon Dioxide (22-29) mmol/L Anion Gap (12-20) BUN (9-16) mg/dL Creatinine (0.5-1.4) mg/dL Estim Creat Clear Calc Estimated GFR Random Glucose (60-115) mg/dL Calcium (8.4-10.2) mg/dL Total Bilirubin (0.0-1.0) mg/dL AST (5-31) U/L ALT (0-31) U/L Alkaline Phosphatase (39-117) U/L Troponin I High Sens (<3.5-17.0) ng/L B-Natriuretic Peptide 14 (<100) pg/mL Total Protein (6.5-8.0) g/dL Albumin (3.5-5.0) g/dL TSH (0.32-4.0) uIU/mL Discharge Plan Discharge Clinical Impression: Chest pain, Leg edema Patient Disposition: Home, Self-Care Instructions: Chest Pain (ED), Leg Edema (ED) Additional Instructions: Keep your legs elevated , do not stand for long hours Water pill daily as needed for increased leg swelling Follow with PCP Prescriptions: New hydrochlorothiazide 12.5 mg tablet 12.5 mg PO QAM Qty: 30 0RF No Action epinephrine [EpiPen] 0.3 mg/0.3 mL auto-injector 0.3 mg IM Q10M PRN (Reason: anaphylaxis) 90 Days Qty: 1 0RF (DME) lancets [FreeStyle Lancets] 28 gauge misc See Rx Instructions .ROUTE .MEDSUPPLY Qty: 100 0RF Rx Instructions: patient to check blood sugar daily as needed (DME) FreeStyle Lite Strips Strip See Rx Instructions .ROUTE .MEDSUPPLY Qty: 100 0RF Rx Instructions: patient to check blood sugar daily pioglitazone [Actos] 30 mg tablet 30 mg PO DAILY 90 Days Qty: 90 0RF lidocaine 5 % adhesive patch,medicated 1 patch topical DAILY PRN (Reason: pain) Qty: 15 0RF Rx Instructions: leave on most painful area for up to 12 hrs (DME) blood-glucose meter [FreeStyle Lite Meter] Kit See Rx Instructions .ROUTE .MEDSUPPLY Qty: 1 0RF Rx Instructions: patient to check blood sugar daily glipizide 10 mg tablet 10 mg PO BID 90 Days Qty: 180 1RF cyclobenzaprine 10 mg tablet 10 mg PO TID gabapentin 300 mg capsule 300 mg PO BID Qty: 60 0RF Rx Instructions: Take 1 cap at bedtime for 10 days. If well tolerated, increase to 1 tab twice daily cyclobenzaprine 10 mg tablet See Rx Instructions PO BEDTIME Qty: 5 0RF Rx Instructions: 1/2 to 1 tab at bed orally bedtime; Interventions: ED Discharge Assessment Last Done: 06/02/22 01:57 Discharge Date/Time: 06/02/22 01:58
[2022-06-02 00:53] LABS: B Type Natriuretic Peptide 14 pg/mL (<100)
[2022-06-02] MEDS: Gabapentin 100 MG CAPSULE PO (00:54)
[2022-06-02 00:57] VITALS: BP 113/58; PULSE 76; RESP 10; O2SAT 99
[2022-06-02 01:00] VITALS: PULSE 84; RESP 16; O2SAT 99
[2022-06-02 01:03] LABS: Thyroid Stimulating Hormone 1.07 uIU/mL (0.32-4.0)
== END 2022-06-02 01:58 | disposition home or self-care (01) ==
PROVIDERS: Emergency Provider Internal Medicine; PCP Internal Medicine
DX: R07.9 Chest pain, unspecified (principal); R60.0 Localized edema; E11.9 Type 2 diabetes mellitus without complications; E66.9 Obesity, unspecified; Z68.34 Body mass index [BMI] 34.0-34.9, adult
CPT/HCPCS: 36415; 80053; 83880; 84443; 84484; 85027; 93005; 94640; 99285

== ENCOUNTER 2022-06-19 07:01 | Outpatient (REF) | payer OTHER, SELFPAY ==
[2022-06-19 08:18] LABS: Estimated Average Glucose 111 mg/dL; Hemoglobin A1c % 5.5 %
== END 2022-06-19 07:02 | disposition home or self-care (01) ==
LOC: HO.LAB 07:01
PROVIDERS: PCP Internal Medicine; Visit Provider Internal Medicine
DX: E11.9 Type 2 diabetes mellitus without complications (principal)
CPT/HCPCS: 36415; 83036

== ENCOUNTER → 2022-08-07 14:20 | Outpatient (BNVA) | payer OTHER, SELFPAY | PROVIDERS: PCP Internal Medicine; Visit Provider Surgery Vascular Surgery | DX: I73.9 Peripheral vascular disease, unspecified (principal) | CPT/HCPCS: 99202 ==

== ENCOUNTER 2022-08-16 13:08 | Outpatient (REF) | payer OTHER, SELFPAY | END 2022-08-16 13:09 | disposition home or self-care (01) | LOC: HO.US 13:08 | PROVIDERS: PCP Internal Medicine; Visit Provider Surgery Vascular Surgery | DX: I73.9 Peripheral vascular disease, unspecified (principal) | CPT/HCPCS: 93923; 93925 ==

== ENCOUNTER 2022-09-11 13:59 | Outpatient (AMB) | payer OTHER, SELFPAY ==
--- NOTE | 2022-09-11 14:01 | A.OFFVIS_ITS ---
Intake Vital Signs 09/11/22 14:02 Height 5 ft 5 in Weight 219 lb BMI 36.4 Intake Visit Reasons: follow up s/p arterial US 08/16/22 Intake Note: follow up bilateral LE pain and numbness, Right LE worse than Left s/p Arterial US 08/16/22. Pt states most of her pain is located in her hips Accompanied by: Self / Same As Patient Allergies cefazolin [CEFAZOLIN] Allergy (Mild, Verified 09/11/22 14:06) LOCALIZED ITCHING AT INJECTION SITE shellfish derived Allergy (Mild, Verified 09/11/22 14:06) Itching cephalexin [CEPHALEXIN] Allergy (Unknown, Verified 09/11/22 14:06) UNKNOWN, ITCHING metronidazole [Flagyl] Allergy (Unknown, Verified 09/11/22 14:06) Unknown HPI follow up s/p arterial US 08/16/22 HPI Details Very pleasant 42-year-old female presents for follow-up regarding lower extremity pain. Unclear what the etiology of this was. She does have a history of sciatic nerve issues and has been on gabapentin. She also has an element of diabetic neuropathy. She now presents for follow-up with noninvasive arterial testing. [facility] Medical History Pre-employment examination Recurrent boils Social History Housing: House Alcohol intake: never Patient Tobacco Use Status: Never used Tobacco e-Cigarette/Vaping Use: Never Used Second Hand Smoke Exposure: Yes (as a child) Current occupational status: employed Cognitive needs: No Hearing needs: No Vision needs: No Review of Systems Const All systems reviewed & are unremarkable except as noted in HPI and below Reports no additional complaints ENT Reports Normal hearing present Card Denies chest pain, Denies chest pain at rest, Denies chest pain with activity and Denies pedal edema Resp Denies cough GI Denies abdominal pain Musc Denies abnormal gait, Denies muscle cramps and Denies radiating pain into limb Skin/Breast Denies skin ulcer and Denies wounds Neuro Reports Normal hearing present and Denies abnormal gait Psych Reports no additional complaints Physical Exam Vital Signs: BMI result Body Mass Index 36.4 Const General: cooperative, healthy appearing and comfortable Orientation/consciousness: oriented to person, oriented to place and oriented to time HEENT Head: Yes normal to inspection Neck Neck: Yes normal visual inspection Carotids: no bruits Chest Chest palpation & inspection: normal inspection of the chest Resp Effort & Inspection: normal respiratory effort and able to speak in complete sentences Auscultation: clear to auscultation bilaterally, no crackles, no rales, no rhonchi and no wheezes Cardio Rate: regular rate Rhythm: regular rhythm Heart sounds: S1 normal heart sound present and S2 normal heart sound present Bruits: no carotid bruits Peripheral pulses: Peripheral pulses 2+ throughout GI Inspection: Yes normal to inspection Skin Wounds: no wounds Hair: normal Neuro General: oriented to person, oriented to place and oriented to time Cranial nerves: Yes CN's II-XII intact bilaterally and Yes Normal hearing present Cognition (Neuro): normal cognition Motor exam (neuro): 5/5 motor strength present throughout Extrem Other: venous exam: No significant superficial varicosities or spider telangiectasias, minimal edema General: No clubbing, No cyanosis and No edema Psych Appearance: grossly normal Mental Status: mental status grossly normal Speech and movement: Normal speech and movement present Results Reviewed Results Reviewed: Noninvasive arterial testing dated 08/16/2022 demonstrates MARISSA on the right of 1.09 and on the left of 0.89 with no significant stenosis on direct ultrasound. Written report and images were reviewed. Assessment & Plan Assessment & Plan (1) Leg pain: Code(s): M79.606 - Pain in leg, unspecified Plan: Unclear etiology of lower extremity discomfort. It does not appear to be vascular in nature. Arterial testing is within normal limits and she has mild to moderate edema. I do think this is more neurologic in nature. May be related to her back or joints. These findings were discussed in detail with the patient. Should this persist she may benefit from pain management or orthopedic evaluation. She will follow up with us on an as-needed basis. Thank you for allowing us to assist in her care. Coding Level of Care Code Est Pt Level 4 (34801) Diagnoses Leg pain M79.606
[2022-09-11 14:02] VITALS: BMI 36.4
== END 2022-09-11 14:18 | disposition home or self-care (01) ==
PROVIDERS: PCP Internal Medicine; Visit Provider Surgery Vascular Surgery
DX: M79.606 Pain in leg, unspecified (principal)
CPT/HCPCS: 99213

== ENCOUNTER → 2022-09-11 13:59 | Outpatient (BNVA) | payer OTHER, SELFPAY | PROVIDERS: PCP Internal Medicine; Visit Provider Surgery Vascular Surgery ==

== ENCOUNTER 2023-01-01 08:56 | Outpatient (AMB) | payer OTHER, SELFPAY ==
[2023-01-01 09:05] VITALS: BP 120/66; PULSE 95; O2SAT 99; BMI 37.8
--- NOTE | 2023-01-01 09:05 | A.OFFPC_ITS ---
Vital Signs 01/01/23 09:05 Height 5 ft 5 in Weight 227 lb 4 oz BMI 37.8 BP 120/66 Blood Pressure Location Rt brachial Position Sitting Pulse 95 Pulse Source Pulse Oximeter Pulse Oximetry (%) 99 Oxygen Delivery Method Room Air Intake Visit Reasons: Annual PE Allergies cefazolin [CEFAZOLIN] Allergy (Mild, Verified 01/01/23 09:05) LOCALIZED ITCHING AT INJECTION SITE shellfish derived Allergy (Mild, Verified 01/01/23 09:05) Itching cephalexin [CEPHALEXIN] Allergy (Unknown, Verified 01/01/23 09:05) UNKNOWN, ITCHING metronidazole [Flagyl] Allergy (Unknown, Verified 01/01/23 09:05) Unknown Medication List - Last Reconciled 01/01/23 by Naz Sandhu MD blood sugar diagnostic (FreeStyle Lite Strips) PATIENT TO CHECK BLOOD SUGAR DAILY blood-glucose meter (FreeStyle Lite Meter kit) patient to check blood sugar daily epinephrine (EpiPen) 0.3 mg (0.3 mL) IM Q10M PRN 90 days gabapentin 300 mg PO BID glipizide 10 mg PO ONCE 90 days lancets (FreeStyle Lancets) patient to check blood sugar daily as needed lidocaine 5% 1 patch topical DAILY PRN pioglitazone (Actos) 30 mg PO DAILY 90 days tramadol 50 mg PO BID PRN Tobacco use date assessed: 01/01/23 Dental Screening Dental Screen Date: 01/01/23 Did you have a dental visit in the last 12 months?: Yes Did you have a dental problem in the last 6 months where you did not have access to dental care?: No Was dental information given to patient?: Patient has dentist HPI Annual PE HPI Details Patient is 42-year-old female Who has been under lot of stress because of her mother sickness Also has been working during the day as well as night and is feeling under tremendous amount of stress Patient is diabetic and tells me that her sugars are out of control because she has been stress eating She is due for labs Also has been having bleeding after intercourse has not seen OBGYN in a while OBGYN referral placed for patient to be seen urgently I am starting her on Lexapro 5 mg at night She will be meeting with our behavior health coordinator today so we can have her start therapy Lab order placed to be done fasting On examination she has a lump right breast 11:00 o'clock I have ordered routine mammogram as well as diagnostic mammogram and ultrasound Patient have a history of breast reduction surgery Patient is obese with BMI of 37.8 and having difficulty losing weight. We will book appointment in 3 weeks as tele medicine to see how she is doing And she is to return in 3 months for follow-up [facility] Medical History Pre-employment examination Recurrent boils Social History Housing: House Alcohol intake: never Patient Tobacco Use Status: Never used Tobacco e-Cigarette/Vaping Use: Never Used Second Hand Smoke Exposure: Yes (as a child) Current occupational status: employed Cognitive needs: No Hearing needs: No Vision needs: No Questionnaire PHQ-9 Over the last 2 weeks, how often have you been bothered by any of the following problems? 1. Little interest or pleasure in doing things: not at all 2. Feeling down, depressed, or hopeless: not at all 3. Trouble falling or staying asleep, or sleeping too much: several days 4. Feeling tired or having little energy: several days 5. Poor appetite or overeating: nearly every day 6. Feeling bad about yourself - or that you are a failure or have let yourself or your family down: nearly every day 7. Trouble concentrating on things, such as reading the newspaper or watching television: more than half the days 8. Moving or speaking so slowly that other people could have noticed. Or the opposite - being so fidgety or restless that you have been moving around a lot more than usual: not at all 9. Thoughts that you would be better off or of hurting yourself in some way: not at all Total score: 10 Depression Screening Interpretation: Positive Depression Screening Follow-up: Existing condition, In treatment and Community Mental Health Worker F/U Depression Screening Done: Yes 20887 - PHQ-9 Billing: Yes Source: Developed by Drs. Kendrick Israel, Destiny Issa, Krish Harkins and colleagues, with an educational charline from [employer]. Thrive Questionnaire Date Thrive assessed: 01/01/23 I am a: Patient What is your living situation today?: I have a steady place to live Within the past 12 months, did the food you bought not last and you didn't have the money to get more?: Sometimes True Within the past 12 months, did you worry whether your food would run out before you got money to buy more?: Sometimes True Do you have trouble paying for medicines?: No Do you have trouble getting transportation to medical appointments?: No Do you have trouble paying your heating and electricity bill?: Yes Do you have trouble taking care of your child, family member or friend?: No Do you have trouble with day-to-day activities such as bathing, preparing meals, shopping, managing finances, etc.?: No Are you currently unemployed and looking for a job?: No Are you interested in more education?: No Please select the resources that you would like help with: None Currently or been in a relationship where the following occur: no concerns reported MICHAEL-7 AMB Questionnaire MICHAEL-7 Date MICHAEL - 7 assessed: 01/01/23 Feeling nervous, anxious, or on edge: 2 = More than half the days Not being able to stop or control worryin = More than half the days Worrying too much about different things: 2 = More than half the days Trouble relaxin = More than half the days Being so restless that it is hard to sit still: 0 = Not at all Becoming easily annoyed or irritable: 1 = Several days Feeling afraid as if something awful might happen: 0 = Not at all Total MICHAEL-7 score (0-4 normal; 5-9 mild; 10-14 moderate; 15-21 severe): 9 Source: Developed by Drs. Kendrick Israel, Destiny Issa, Krish Harkins and colleagues, with an educational charline from [employer]. Review of Systems Const Denies chills, Denies fever(s) and Denies headache(s) Eyes Denies blurry vision ENT Denies headache(s), Denies nasal discharge, Denies nasal obstruction, Denies odynophagia and Denies sinus pain Card Denies chest pain at rest and Denies chest pain with activity Resp Denies cough and Denies hemoptysis GI Denies diarrhea, Denies odynophagia, Denies vomiting and Denies hematemesis Reports as per HPI Musc Denies abnormal gait Skin/Breast Reports as per HPI Neuro Denies Neuro-related abnormal movements, Denies Abnormal speech present, Denies abnormal gait, Denies headache(s) and Denies Sensory deficit (Neuro) Psych Denies mood swings and Denies paranoia Endo Reports as per HPI Giuliano/Lymph Reports as per HPI Aller/Immun Reports as per HPI Physical exam (Primary Care) Vital Signs: Last Vital Signs Pulse 95 01/01/23 09:05 BP 120/66 01/01/23 09:05 Pulse Ox 99 01/01/23 09:05 Oxygen Delivery Method Room Air 01/01/23 09:05 BMI result Body Mass Index 37.8 Tobacco/Smoking Status: Tobacco use Status Tobacco use date assessed 01/01/23 01/01/23 09:06 Patient Tobacco Use Status Never used Tobacco 01/01/23 09:06 e-Cigarette/Vaping Use Never Used 01/01/23 09:06 PHQ-9: PHQ-9 Score PHQ-9: Total score 10 01/01/23 09:41 Depression Screening Interpretation: Positive Depression Screening Follow-up: Existing condition, In treatment and Community Mental Health Worker F/U Thrive Assessment: Date of Thrive Assessment Date Thrive assessed 01/01/23 01/01/23 09:41 Currently or been in a relationship where the following occur: no concerns reported Const General: cooperative, comfortable and no acute distress Orientation/consciousness: patient oriented x3 HENMT Head: Yes normocephalic and Yes atraumatic Eyes General: appearance normal, both eyes and all related structures Pupils: Equal, round and reactive pupils present EOM: EOMs intact bilaterally Neck Neck: Yes supple and No lymphadenopathy Thyroid: Thyroid normal Lymphatic: no lymphadenopathy noted Chest Breast/axilla palpation: normal palpation of the breasts Resp Effort & Inspection: normal respiratory effort and able to speak in complete sentences Auscultation: clear to auscultation bilaterally Cardio Heart sounds: S1 normal heart sound present and S2 normal heart sound present GI Palpation (GI): Soft to palpation and nontender Auscultation: normal bowel sounds General: Yes no CVA tenderness Back/Spine/Pelvis Back: no CVA tenderness Skin General skin exam: elasticity normal and turgor normal Neuro General: patient oriented x3 and gait normal Cranial nerves: Yes Equal, round and reactive pupils present Speech: No Abnormal speech present Sensory Exam: No Sensory deficit (Neuro) Coordination: tandem gait normal and Romberg test negative Extrem General: Yes normal exam except as noted and No edema Office Procedures Flu Questionnaire Does the patient have a severe egg allergy?: No Does the patient have severe life threatening allergies?: No Does the patient have a fever or illness today?: No Has the patient ever had Guillain-[place] Syndrome?: No Has the patient ever had any past reaction to a flu shot?: No Immunizations flu vacc [id number] 6mos up(PF) 60 mcg(15 mcgx4)/0.5 mL IM syringe Performing Provider: Naz Sandhu MD Performing Location: [facility] Administered by: Ilsa Henson CMA on 01/01/23 09:42 Dose Route Admin Location Dispensed Lot Number Expiration Date NDC New Vehicle Sales Consultant 0.5 mL IM Right Deltoid 0.5 mL [id number] 08/18/23 [id number] [employer] VIS Given Date VIS Provided VIS Publication Date 01/01/23 Single Vaccine 20 Eligibility Eligibility Date Funding Source Not [facility] Eligible 01/01/23 Private Assessment and Plan Assessment & Plan (1) Encounter for general adult medical examination with abnormal findings: Code(s): Z00.01 - Encounter for general adult medical examination with abnormal findings (2) Diabetes mellitus type 2 in obese: Code(s): E11.69 - Type 2 diabetes mellitus with other specified complication; E66.9 - Obesity, unspecified (3) Morbid obesity due to excess calories: Code(s): E66.01 - Morbid (severe) obesity due to excess calories (4) Major depression, recurrent: Code(s): F33.9 - Major depressive disorder, recurrent, unspecified Qualifiers: Active/Remission status: currently active Major depression episode severity: moderate Qualified Code(s): F33.1 - Major depressive disorder, recurrent, moderate (5) Anxiety, generalized: Code(s): F41.1 - Generalized anxiety disorder (6) Stress at home: Code(s): F43.9 - Reaction to severe stress, unspecified (7) Breast lump on right side at 11 o'clock position: Code(s): N63.11 - Unspecified lump in the right breast, upper outer quadrant (8) Dysfunctional uterine bleeding: Code(s): N93.8 - Other specified abnormal uterine and vaginal bleeding Plan Patient is 42-year-old female Who has been under lot of stress because of her mother sickness Also has been working during the day as well as night and is feeling under tremendous amount of stress Patient is diabetic and tells me that her sugars are out of control because she has been stress eating She is due for labs Also has been having bleeding after intercourse has not seen OBGYN in a while OBGYN referral placed for patient to be seen urgently I am starting her on Lexapro 5 mg at night She will be meeting with our behavior health coordinator today so we can have her start therapy Lab order placed to be done fasting On examination she has a lump right breast 11:00 o'clock I have ordered routine mammogram as well as diagnostic mammogram and ultrasound Patient have a history of breast reduction surgery Patient is obese with BMI of 37.8 and having difficulty losing weight. We will book appointment in 3 weeks as tele medicine to see how she is doing And she is to return in 3 months for follow-up Orders: Orders Hemoglobin A1c Today E11.65 - Type 2 diabetes mellitus with hyperglycemia, E66.01 - Morbid (severe) obesity due to excess calories, F33.9 - Major depressive disorder, recurrent, unspecified, F41.1 - Generalized anxiety disorder, F43.9 - Reaction to severe stress, unspecified, Z00.01 - Encounter for general adult medical examination with abnormal findings Microalbumin, Random (w Creat) Today E11.65 - Type 2 diabetes mellitus with hyperglycemia, E66.01 - Morbid (severe) obesity due to excess calories, F33.9 - Major depressive disorder, recurrent, unspecified, F41.1 - Generalized anxiety disorder, F43.9 - Reaction to severe stress, unspecified, Z00.01 - Encounter for general adult medical examination with abnormal findings TSH reflex Free T4 Today E11.65 - Type 2 diabetes mellitus with hyperglycemia, E66.01 - Morbid (severe) obesity due to excess calories, F33.9 - Major depressive disorder, recurrent, unspecified, F41.1 - Generalized anxiety disorder, F43.9 - Reaction to severe stress, unspecified, Z00.01 - Encounter for general adult medical examination with abnormal findings MM tomosynthesis screening BI Today Z12.31 - Encounter for screening mammogram for malignant neoplasm of breast MM tomosynthesis diagnostic LT Today N63.11 - Unspecified lump in the right breast, upper outer quadrant Complete Blood Count Auto Diff Today E11.65 - Type 2 diabetes mellitus with hyperglycemia, E66.01 - Morbid (severe) obesity due to excess calories, F33.9 - Major depressive disorder, recurrent, unspecified, F41.1 - Generalized anxiety disorder, F43.9 - Reaction to severe stress, unspecified, Z00.01 - Encounter for general adult medical examination with abnormal findings Comprehensive [place]. Panel Fast Today E11.65 - Type 2 diabetes mellitus with hyperglycemia, E66.01 - Morbid (severe) obesity due to excess calories, F33.9 - Major depressive disorder, recurrent, unspecified, F41.1 - Generalized anxiety disorder, F43.9 - Reaction to severe stress, unspecified, Z00.01 - Encounter for general adult medical examination with abnormal findings Lipid Panel Today E11.65 - Type 2 diabetes mellitus with hyperglycemia, E66.01 - Morbid (severe) obesity due to excess calories, F33.9 - Major depressive disorder, recurrent, unspecified, F41.1 - Generalized anxiety disorder, F43.9 - Reaction to severe stress, unspecified, Z00.01 - Encounter for general adult medical examination with abnormal findings US breast RT complete Today N63.11 - Unspecified lump in the right breast, upper outer quadrant Influenza [id number] Immunization Today Z23 - Encounter for immunization Referrals N[facility] [employer]PER Referral N93.8 - Other specified abnormal uterine and vaginal bleeding Medications: New escitalopram oxalate (Lexapro) 5 mg PO DAILY 30 tabs 0RF Coding Level of Care Code Est Pt Prev Care 40-64y(29167) Diagnoses Encounter for general adult medical examination with abnormal findings Z00.01 Diabetes mellitus type 2 in obese E11.69; E66.9 Morbid obesity due to excess calories E66.01 Moderate episode of recurrent major depressive disorder F33.1 Active/Remission status: currently active Major depression episode severity: moderate Anxiety, generalized F41.1 Stress at home F43.9 Breast lump on right side at 11 o'clock position N63.11 Dysfunctional uterine bleeding N93.8
== END 2023-01-01 09:45 | disposition home or self-care (01) ==
PROVIDERS: Visit Provider Internal Medicine
DX: Z00.01 Encounter for general adult medical examination with abnormal findings (principal); E11.69 Type 2 diabetes mellitus with other specified complication; E66.01 Morbid (severe) obesity due to excess calories; F33.1 Major depressive disorder, recurrent, moderate; E66.9 Obesity, unspecified; F43.9 Reaction to severe stress, unspecified; N63.11 Unspecified lump in the right breast, upper outer quadrant; N93.8 Other specified abnormal uterine and vaginal bleeding; F41.1 Generalized anxiety disorder; Z23 Encounter for immunization
CPT/HCPCS: 90471; 90686; 99214; 99396

== ENCOUNTER 2023-01-01 09:59 | Outpatient (REF) | payer OTHER, SELFPAY ==
[2023-01-01 13:37] LABS: MANUAL DIFF FLAG NO
[2023-01-01 14:03] LABS: Estimated Average Glucose 143 mg/dL; Hemoglobin A1C 152.2516 umol/L; Hemoglobin A1c % 6.6 % (<6.0)
[2023-01-01 14:08] LABS: Basophils Percent Auto 0.4 % (0-2); Eosinophils Absolute Auto 0.1 X10*3/uL (0.0-0.4); Eosinophils Percent Auto 1.8 % (0-4); Hematocrit 36.4 % (37.0-47.0); Imm Gran Abs Auto 0.02 X10*3/uL (0.00-0.03); Imm Gran Pct Auto 0.4 % (0.0-0.4); Lymphocytes Absolute Auto 2.1 X10*3/uL (1.2-4.9); Lymphocytes Percent Auto 37.1 % (20-40); Mean Corpuscular Hemoglobin 28.1 pg (27.0-33.0); Mean Corpuscular Volume 85.2 fL (80.0-98.0); Mean Platelet Volume 9.9 fL (9.4-12.3); Monocytes Absolute Auto 0.5 X10*3/uL (0.1-1.2); Monocytes Percent Auto 8.6 % (2-11); Neutrophils Absolute Auto 2.9 x10*3/uL (2.0-8.3); Neutrophils Percent Auto 51.7 % (45-73); Platelet Count 267 X10*3/uL (160-400); Red Blood Count 4.27 X10*6/uL (4.20-5.50); White Blood Count 5.6 X10*3/uL (4.8-10.8)
[2023-01-01 14:28] LABS: TSH reflex Free T4 0.54 uIU/mL (0.32-4.0)
[2023-01-01 14:29] LABS: Anion Gap 10 (12-20)
[2023-01-01 14:34] LABS: Alanine Aminotransferase 29 U/L (0-31); Albumin Level 4.1 g/dL (3.5-5.0); Alkaline Phosphatase 59 U/L (39-117); Aspartate Amino Transferase 29 U/L (5-31); Bilirubin Total 1.1 mg/dL (0.0-1.0); Blood Urea Nitrogen 7 mg/dL (9-16); Calcium 9.4 mg/dL (8.4-10.2); Carbon Dioxide 27 mmol/L (22-29); Chloride 105 mmol/L (96-108); Cholesterol 158 mg/dL (<200); Estimated Glomerular Filt Rate > 60; Glucose Fasting 139 mg/dL (60-99); HDL Cholesterol 48 mg/dL (>40); LDL Cholesterol Calculated 90 mg/dL (<100); Potassium 4.1 mmol/L (3.3-5.1); Sodium 138 mmol/L (135-145); Total Protein 7.4 g/dL (6.5-8.0); Triglycerides 100 mg/dL (<150)
[2023-01-01 14:47] LABS: Creatinine Urine 113.82 mg/dL; Microalbum/Creatinine Ratio Ur 18.4 ug/mg cr (<30)
== END 2023-01-01 10:00 | disposition home or self-care (01) ==
LOC: HO.HMGCLDS 09:59
PROVIDERS: PCP Internal Medicine; Visit Provider Internal Medicine
DX: Z00.01 Encounter for general adult medical examination with abnormal findings (principal); E11.65 Type 2 diabetes mellitus with hyperglycemia; E66.01 Morbid (severe) obesity due to excess calories; F33.9 Major depressive disorder, recurrent, unspecified; F41.1 Generalized anxiety disorder; F43.9 Reaction to severe stress, unspecified
CPT/HCPCS: 36415; 80053; 80061; 82043; 82570; 83036; 84443; 85025

== ENCOUNTER 2023-01-16 08:21 | Outpatient (REF) | payer OTHER, SELFPAY ==
--- NOTE | ~2023-01-16 | MM_ITS ---
EXAMINATION: MM DIAGNOSTIC DIGITAL BREAST TOMOSYNTHESIS, BILATERAL US BREAST LIMITED, RIGHT MAMMOGRAPHY: CLINICAL INFORMATION: Doctor feels palpable focus of abnormality right breast approximately 11:00. Patient cannot feel this. History of breast reduction surgery. Numerous benign biopsies of left anterior breast. COMPARISON: Mammography: 12/15/2012. TECHNIQUE: Digital breast tomosynthesis is performed in both the craniocaudal and mediolateral oblique views along with computer-aided detection (CAD). Synthesized 2D images are generated from the tomosynthesis. FINDINGS: There are scattered areas of fibroglandular density (ACR BI-RADS breast composition Category b). There are no suspicious masses, suspicious grouped calcifications, or areas of architectural distortion in either breast. There are dystrophic calcifications in the left breast anteriorly and laterally, along with 3 biopsy clips. There is no mammographic abnormality in the 11:00 axis of the right breast to correlate with the palpable focus. ULTRASOUND: CLINICAL INFORMATION: Doctor feels palpable focus of abnormality right breast approximately 11:00. Patient cannot feel this. History of breast reduction surgery. Numerous benign biopsies of left anterior breast. COMPARISON: None TECHNIQUE: Targeted sonographic evaluation right breast 11:00 was performed using a high frequency linear transducer. Selected archived documentation. FINDINGS: RIGHT BREAST: There is a mixture of fatty and fibroglandular tissue. No suspicious mass is seen. There is no pathologic acoustic shadowing. There is no axillary adenopathy. No sonographic correlate to the purported palpable focus at the 11:00 axis. MM/MM tomosynthesis diagnostic BI IMPRESSION: There are no findings suspicious for malignancy in either breast. Stable benign findings related to breast reduction surgery. No mammographic or sonographic correlate to the purported focus of palpable concern 11:00 right breast. Recommend clinical management. OVERALL ASSESSMENT: Mammography: BI-RADS 1 - Negative Ultrasound: BI-RADS 1 - Negative RECOMMENDATION: 1. Patient should be managed based on the clinical impression. Decision to proceed with biopsy should be based on clinical grounds and degree of clinical concern. 2. Otherwise, routine annual screening mammography. This patient's information was entered into a reminder system with a target due date for their next mammogram.
== END 2023-01-16 08:22 | disposition home or self-care (01) ==
LOC: HO.MAMMO 08:21
PROVIDERS: PCP Internal Medicine; Visit Provider Internal Medicine
DX: N63.11 Unspecified lump in the right breast, upper outer quadrant (principal)
CPT/HCPCS: 76642; 77062; 77066

== ENCOUNTER → 2023-01-16 08:30 | Outpatient (BNV) | payer OTHER, SELFPAY | PROVIDERS: PCP Internal Medicine; Visit Provider Radiology Diagnostic Radiology | DX: R92.1 Mammographic calcification found on diagnostic imaging of breast (principal); R92.323 Mammographic fibroglandular density, bilateral breasts; R92.311 Mammographic fatty tissue density, right breast | CPT/HCPCS: 76642; 77062; 77066 ==

== ENCOUNTER 2023-01-22 11:59 | Outpatient (AMB) | payer MEDICAID, SELFPAY ==
--- NOTE | 2023-01-22 12:16 | MHC.PC.OV ---
Intake Visit Reasons: 3 Week follow up Allergies cefazolin [CEFAZOLIN] Allergy (Mild, Verified 01/22/23 12:16) LOCALIZED ITCHING AT INJECTION SITE shellfish derived Allergy (Mild, Verified 01/22/23 12:16) Itching cephalexin [CEPHALEXIN] Allergy (Unknown, Verified 01/22/23 12:16) UNKNOWN, ITCHING metronidazole [Flagyl] Allergy (Unknown, Verified 01/22/23 12:16) Unknown Medication List - Last Reconciled 01/22/23 by Naz Sandhu MD blood sugar diagnostic (FreeStyle Lite Strips) PATIENT TO CHECK BLOOD SUGAR DAILY blood-glucose meter (FreeStyle Lite Meter kit) patient to check blood sugar daily epinephrine (EpiPen) 0.3 mg (0.3 mL) IM Q10M PRN 90 days gabapentin 300 mg PO BID glipizide 10 mg PO ONCE 90 days lancets (FreeStyle Lancets) patient to check blood sugar daily as needed lidocaine 5% 1 patch topical DAILY PRN pioglitazone (Actos) 30 mg PO DAILY 90 days tramadol 50 mg PO BID PRN Tobacco use date assessed: 01/22/23 Dental Screening Dental Screen Date: 01/22/23 Did you have a dental visit in the last 12 months?: Yes Did you have a dental problem in the last 6 months where you did not have access to dental care?: No Was dental information given to patient?: Patient has dentist HPI 3 Week follow up HPI Details Patient is 42-year-old female this is a telemedicine video conference Anxiety: I started her on Lexapro 5 mg last visit patient says that medication gave her headache and stomachache She continued to feel anxious, patient says that it is because of anxiety she is overeating I have sent lorazepam 0.5 mg tablet she may take that 1 as needed She is still waiting for our behavior health coordinator to call her and set her up with therapist. Labs done recently reviewed with the patient She has done mammogram and ultrasound of the breast which came back normal She has already book appointment with OBGYN for next week for vaginal bleeding after intercourse. Patient will see me in May for follow-up [facility] Medical History Pre-employment examination Recurrent boils Social History Housing: House Alcohol intake: never Patient Tobacco Use Status: Never used Tobacco e-Cigarette/Vaping Use: Never Used Second Hand Smoke Exposure: Yes (as a child) Current occupational status: employed Cognitive needs: No Hearing needs: No Vision needs: No Questionnaire Thrive Questionnaire Date Thrive assessed: 01/01/23 AUDIT C Alcohol Use Questionnaire (AUDIT-C) 1. How often do you have a drink containing alcohol?: Never 3. How often do you have six or more drinks on one occasion?: Never Total Score: 0 Score Reviewed/Action Taken: Yes MICHAEL-7 AMB Questionnaire MICHAEL-7 Date MICHAEL - 7 assessed: 01/01/23 Source: Developed by Drs. Kendrick Israel, Destiny Issa, Krish Harkins and colleagues, with an educational charline from [employer]. Review of Systems Const Denies chills and Denies fever(s) ENT Denies epistaxis and Denies nasal discharge Card Denies chest pain Resp Denies chest congestion, Denies cough and Denies hemoptysis GI Denies diarrhea and Denies nausea Skin/Breast Denies rash Neuro Reports no additional complaints Psych Reports no additional complaints Endo Reports no additional complaints Physical exam (Primary Care) Tobacco/Smoking Status: Tobacco use Status Tobacco use date assessed 01/22/23 01/22/23 12:17 Patient Tobacco Use Status Never used Tobacco 01/22/23 12:17 e-Cigarette/Vaping Use Never Used 01/22/23 12:17 Thrive Assessment: Date of Thrive Assessment Date Thrive assessed 01/01/23 01/22/23 12:17 Telehealth Telehealth Location of provider rendering services: practice address Location of patient: address on file Patient Identification confirmed using: Name, : Yes Telehealth method: video Patient verbally consented to treatment: Yes Patient verbally consented to billing insurance company: Yes Patient informed of any privacy concerns related to visit: Yes Minutes spent on Phone/Video with Pt.: 16 Assessment and Plan Assessment & Plan (1) Diabetes mellitus type 2 in obese: Code(s): E11.69 - Type 2 diabetes mellitus with other specified complication; E66.9 - Obesity, unspecified (2) Morbid obesity due to excess calories: Code(s): E66.01 - Morbid (severe) obesity due to excess calories (3) Major depression, recurrent: Code(s): F33.9 - Major depressive disorder, recurrent, unspecified Qualifiers: Active/Remission status: currently active Major depression episode severity: moderate Qualified Code(s): F33.1 - Major depressive disorder, recurrent, moderate (4) Anxiety, generalized: Code(s): F41.1 - Generalized anxiety disorder (5) Stress at home: Code(s): F43.9 - Reaction to severe stress, unspecified (6) Dysfunctional uterine bleeding: Code(s): N93.8 - Other specified abnormal uterine and vaginal bleeding Plan Patient is 42-year-old female this is a telemedicine video conference Anxiety: I started her on Lexapro 5 mg last visit patient says that medication gave her headache and stomachache She continued to feel anxious, patient says that it is because of anxiety she is overeating I have sent lorazepam 0.5 mg tablet she may take that 1 as needed Patient is aware of side effects like , this medication has a risk of being habit forming, slowing of relfexes, dizziness, and its controlled in nature She is still waiting for our behavior health coordinator to call her and set her up with therapist. Labs done recently reviewed with the patient She has done mammogram and ultrasound of the breast which came back normal She has already book appointment with OBGYN for next week for vaginal bleeding after intercourse. Patient will see me in May for follow-up Medications: New lorazepam 0.5 mg PO ONCE PRN 30 tabs 0RF anxiety 30 days Coding Level of Care Code Tele Est Pt Level 4 (62942) Diagnoses Diabetes mellitus type 2 in obese E11.69; E66.9 Morbid obesity due to excess calories E66.01 Moderate episode of recurrent major depressive disorder F33.1 Active/Remission status: currently active Major depression episode severity: moderate Anxiety, generalized F41.1 Stress at home F43.9 Dysfunctional uterine bleeding N93.8
== END 2023-01-22 16:55 | disposition home or self-care (01) ==
PROVIDERS: PCP Internal Medicine; Visit Provider Internal Medicine
DX: E11.69 Type 2 diabetes mellitus with other specified complication (principal); E66.9 Obesity, unspecified; E66.01 Morbid (severe) obesity due to excess calories; F33.1 Major depressive disorder, recurrent, moderate; F41.1 Generalized anxiety disorder; F43.9 Reaction to severe stress, unspecified; N93.8 Other specified abnormal uterine and vaginal bleeding
CPT/HCPCS: 99214

== ENCOUNTER 2023-02-21 08:15 | Outpatient (AMB) | payer OTHER, SELFPAY ==
[2023-02-21 08:26] VITALS: BP 118/64; BMI 37.8
--- NOTE | 2023-02-21 08:26 | MHC.OFFVIS ---
Intake Vital Signs 02/21/23 08:26 Height 5 ft 5 in Weight 227 lb 1.218 oz BMI 37.8 BP 118/64 Intake Visit Reasons: AUB/per RN Survey And Mapping Technician Required: No Information Interpreted: non-clinical & clinical Rf Test Engineer: Rf Test Engineer Present (Lyssa Rocha BASSAM) Accompanied by: Self / Same As Patient Allergies cefazolin [CEFAZOLIN] Allergy (Mild, Verified 02/21/23 08:33) LOCALIZED ITCHING AT INJECTION SITE shellfish derived Allergy (Mild, Verified 02/21/23 08:33) Itching cephalexin [CEPHALEXIN] Allergy (Unknown, Verified 02/21/23 08:33) UNKNOWN, ITCHING metronidazole [Flagyl] Allergy (Unknown, Verified 02/21/23 08:33) Unknown Is last menstrual period known: Yes Last menstrual period: 02/04/23 HPI HPI Comments History of Present Illness Details Presenting complaining of irregular menstrual cycles associated with passage of blood clots in addition to bleeding after intercourse over the last 6 months. Last Pap smear was in 2013 was negative. Last mammogram was in 01/10 was BI-RADS 1 [facility] Medical History Pre-employment examination Recurrent boils Social History Housing: House Alcohol intake: never Patient Tobacco Use Status: Never used Tobacco e-Cigarette/Vaping Use: Never Used Second Hand Smoke Exposure: Yes (as a child) Current occupational status: employed Cognitive needs: No Hearing needs: No Vision needs: No Female Reproductive History Menstrual Date of last menstrual period: 02/04/23 Review of Systems Const All systems reviewed & are unremarkable except as noted in HPI and below Card Reports as per HPI Resp Reports as per HPI GI Reports as per HPI and Reports no additional complaints Reports as per HPI Physical Exam Vital Signs: Last Vital Signs BP 118/64 02/21/23 08:26 BMI result Body Mass Index 37.8 Const General: cooperative, healthy appearing and comfortable Chest Chest palpation & inspection: normal inspection of the chest and normal palpation of entire chest wall Breast/axilla inspection: normal inspection of the breasts and normal inspection of the axillae Breast/axilla palpation: normal palpation of the breasts, normal palpation of the axillae and no axillary lymphadenopathy Resp Effort & Inspection: normal respiratory effort Auscultation: clear to auscultation bilaterally Percussion: percussion normal Cardio Palpation: normal PMI Rate: regular rate Rhythm: regular rhythm Heart sounds: no murmurs and no rubs Peripheral pulses: Peripheral pulses 2+ throughout GI Inspection: Yes normal to inspection Palpation (GI): Soft to palpation, nontender, no guarding, not rigid and No hepatosplenomegaly present Percussion: Yes normal to percussion Auscultation: normal bowel sounds Rectal Exam - Female: deferred General: Yes bladder normal to palpation External Female Exam: No lesion Speculum Exam - Vagina: normal appearance of the vagina, normal palpation, normal vaginal discharge and not erythematous Speculum Exam - Cervix: normal appearance of the cervix and normal palpation Bimanual exam- vagina & uterus: normal bimanual exam, normal palpation, uterine size normal, bladder normal to palpation, consistency normal and normal palpation Bimanual Exam- Adnexa, other: normal adnexae, no masses and no tenderness Office Procedures Endometrial Biopsy Details: The patient was counseled regarding the indication and benefits of endometrial sampling to rule out endometrial pathology including not limited to endometrial hyperplasia or endometrial cancer and others; The alternatives (Either do nothing vs. hysteroscopy D&C) & the risks were discussed with the patient including but not limited: pain, uterine perforation, bleeding, infection, possible injury to bladder, bowel, ureter, possible need for blood transfusion with all its possible risks. The patient verbalized understanding all questions answered and signed consent. The patient was placed into the dorsal lithotomy position; a speculum was inserted in the vagina. Using aseptic technique for the procedure, the cervix was cleansed with Betadine. The anterior lip of the cervix was grasped with a single tooth tenaculum. The uterus was sounded to 7 cm with a 4 mm Pipelle was used. Tissues samples were obtained and placed in formalin, in a patient labeled container and sent to the pathology department. At the end of the procedure, there was minimal bleeding noted The patient tolerated the procedure well and was discharged in good condition with the following instructions: Nothing in the vagina until the bleeding stops. No sex until the bleeding stops, to call if any of the following occurs: fever (>100.4), flu-like symptoms, abdominal pain, heavy bleeding, four smelling vaginal discharge. The patient was instructed to schedule a Follow up appointment in 2 weeks to discuss pathology results of the biopsy and treatment options. This note was generated with a voice recognition program. Some errors may have been overlooked during the review of this note. Sometimes these errors may affect the content or meaning of a given sentence. [id number] Biopsy Results AMB Test Urine AMB Test Urine Negative Last Edit by Lyssa Rocha CMA on 02/21/23 08:38 Results Reviewed Results Reviewed: Laboratory Last Values Tst Clinic Negative 02/21/23 08:38 Assessment & Plan Assessment & Plan (1) Abnormal uterine bleeding (AUB): Code(s): N93.9 - Abnormal uterine and vaginal bleeding, unspecified Plan: Co testing done, GC and chlamydia taken CBC, prolactin, TSH, HCG, and pelvic ultrasound ordered. Discussed with the patient the different causes of abnormal bleeding including thyroid disorders, uterine and ovarian pathology, endometrial hyperplasia, carcinoma and other potential causes. Discussed with the patient the work up including CBC (to r/o anemia), TSH, pelvic Ultrasound, endometrial biopsy to r/o endometrial pathology. EMB done, see procedure note. All questions answered and the patient verbalized understanding. Instructed the patient to schedule an appointment for follow-up in 2 weeks. Orders: Orders Prolactin Today N93.9 - Abnormal uterine and vaginal bleeding, unspecified HCG Quantitative Today N93.9 - Abnormal uterine and vaginal bleeding, unspecified Complete Blood Count no Diff Today N93.9 - Abnormal uterine and vaginal bleeding, unspecified AMB HCG Urine Test Today Z32.02 - Encounter for test, result negative AMB Endometrial Biopsy Today N93.9 - Abnormal uterine and vaginal bleeding, unspecified TSH reflex Free T4 Today N93.9 - Abnormal uterine and vaginal bleeding, unspecified US pelvic and transvaginal Today N93.9 - Abnormal uterine and vaginal bleeding, unspecified Coding Level of Care Code New Pt Level 3 (26411) Diagnoses Abnormal uterine bleeding (AUB) N93.9 CPT Codes Endometrial Biopsy - CPT: 71032-[id number] Biopsy ([id number])
== END 2023-02-21 08:55 | disposition home or self-care (01) ==
LOC: HO.HWS 08:15
PROVIDERS: PCP Internal Medicine; Visit Provider Obstetrics & Gynecology
DX: N93.9 Abnormal uterine and vaginal bleeding, unspecified (principal); Z32.02 Encounter for pregnancy test, result negative
CPT/HCPCS: 58100; 99203

== ENCOUNTER 2023-02-21 08:15 | Outpatient (REF) | payer OTHER, SELFPAY ==
[2023-02-25 23:54] LABS: HPV mRNA E6/E7 rflx Not Detected (Not Detected)
== END 2023-02-21 08:16 | disposition home or self-care (01) ==
LOC: HO.LNP 08:15
PROVIDERS: PCP Internal Medicine; Visit Provider Obstetrics & Gynecology
DX: N93.9 Abnormal uterine and vaginal bleeding, unspecified (principal)
CPT/HCPCS: 58100; 81025; 87624; 88142; 88305; 99202

== ENCOUNTER 2023-02-21 08:58 | Outpatient (REF) | payer OTHER, SELFPAY | END 2023-02-21 08:59 | disposition home or self-care (01) | LOC: HO.LAB 08:58 | PROVIDERS: Visit Provider Obstetrics & Gynecology | DX: N93.9 Abnormal uterine and vaginal bleeding, unspecified (principal) | CPT/HCPCS: 0353U; 84146; 84443; 84702; 85027 ==

== ENCOUNTER 2023-03-06 14:22 | Outpatient (REF) | payer OTHER, SELFPAY ==
--- NOTE | ~2023-03-06 | US_ITS ---
EXAMINATION: US PELVIS CLINICAL INFORMATION: Abnormal uterine vaginal bleeding; the last menstrual period was on 02/27/2023. COMPARISON: Pelvic ultrasound dated 03/12/2019. TECHNIQUE: Ultrasound of the pelvis is performed using both transabdominal and transvaginal transducers along with Doppler. Transvaginal imaging is performed due to inadequate visualization transabdominally. FINDINGS: The uterus is of normal size and echogenicity measuring 9.4 x 4.9 x 6.0 cm. A regular homogeneous endometrium is identified measuring 0.7 cm. Nabothian cysts are seen within the cervix FIBROIDS: There is 1 fibroid seen. 1. Location: Upper rightward uterine body, myometrial. Size: 2.7 x 1.9 x 2.0 cm. Prior: 1.6 x 1.3 x 1.6 cm. Fibroid characteristics: Heterogeneous echotexture. Both ovaries are of normal size and echogenicity. The right ovary measures 2.6 x 1.7 x 2.0 cm for a volume of 4.7 mL. The left ovary measures 2.4 x 1.6 x 2.3 mL, for a volume of 4.5 mL. There is no pelvic free fluid. No adnexal mass is seen. US/US pelvic and transvaginal IMPRESSION: 1. A uterine fibroid is redemonstrated, as detailed. 2. Nabothian cysts are seen within the cervix.
== END 2023-03-06 14:23 | disposition home or self-care (01) ==
LOC: HO.US 14:22
PROVIDERS: PCP Internal Medicine; Visit Provider Obstetrics & Gynecology
DX: N93.9 Abnormal uterine and vaginal bleeding, unspecified (principal)
CPT/HCPCS: 76830; 76856

== ENCOUNTER 2023-03-07 08:47 | Outpatient (AMB) | payer OTHER, SELFPAY ==
--- NOTE | 2023-03-07 09:20 | A.OFFVIS_ITS ---
Intake Vital Signs 03/07/23 09:29 Height 5 ft 5 in Weight 227 lb 1.218 oz BMI 37.8 BP 110/68 Intake Visit Reasons: Hysteroscopy D&C Soot Blower: Soot Blower Present Allergies cefazolin [CEFAZOLIN] Allergy (Mild, Verified 02/21/23 08:33) LOCALIZED ITCHING AT INJECTION SITE shellfish derived Allergy (Mild, Verified 02/21/23 08:33) Itching cephalexin [CEPHALEXIN] Allergy (Unknown, Verified 02/21/23 08:33) UNKNOWN, ITCHING metronidazole [Flagyl] Allergy (Unknown, Verified 02/21/23 08:33) Unknown Is last menstrual period known: Yes Last menstrual period: 02/27/22 Post menopausal: No Patient : No Do you need a note to return to daycare/school/sports/work: Yes (for surgery on saturday) [facility] HPI Comments History of Present Illness Details The patient is presenting after endometrial biopsy. The patient has no complaints, no vaginal bleeding, no feverishness chills or abdominal pain. Endometrial biopsy pathology showed the following: Secretory endometrium with patchy squamous morule formation and focal glandular crowding; no atypia identified [facility] Medical History Pre-employment examination Recurrent boils Social History Housing: House Alcohol intake: never Patient Tobacco Use Status: Never used Tobacco e-Cigarette/Vaping Use: Never Used Second Hand Smoke Exposure: Yes (as a child) Current occupational status: employed Cognitive needs: No Hearing needs: No Vision needs: No Female Reproductive History Menstrual Date of last menstrual period: 02/27/22 Total pregnancies: 2 Full term: 2 Review of Systems Card Reports as per HPI and Reports no additional complaints Resp Reports as per HPI and Reports no additional complaints GI Reports as per HPI and Reports no additional complaints Reports as per HPI Physical Exam Const General: cooperative, healthy appearing and comfortable Chest Chest palpation & inspection: normal inspection of the chest and normal palpation of entire chest wall Breast/axilla inspection: normal inspection of the breasts and normal inspection of the axillae Breast/axilla palpation: normal palpation of the breasts, normal palpation of the axillae and no axillary lymphadenopathy Resp Effort & Inspection: normal respiratory effort Auscultation: clear to auscultation bilaterally Percussion: percussion normal Cardio Palpation: normal PMI Rate: regular rate Rhythm: regular rhythm Heart sounds: no murmurs and no rubs Peripheral pulses: Peripheral pulses 2+ throughout GI Inspection: Yes normal to inspection Palpation (GI): Soft to palpation, nontender, no guarding, not rigid and No hepatosplenomegaly present Percussion: Yes normal to percussion Auscultation: normal bowel sounds Rectal Exam - Female: deferred Assessment & Plan Assessment & Plan (1) Abnormal uterine bleeding (AUB): Comment: Squamous morules and focal crowding on EMB pathology Code(s): N93.9 - Abnormal uterine and vaginal bleeding, unspecified Plan: Discussed with the patient the finding on EMB pathology showing squamous morular metaplasia which carries an increased risk of an endometrial cancer outcome and may resolve spontaneously, in addition, to the finding of crowded glands with the risk of EIN (atypical hyperplasia); therefore, recommended hysteroscopy D&C possible polypectomy/myomectomy for further sampling. Discussed with the patient the procedure , all benefits and risks including but not limited to inability to complete the procedure , insufficient endometrial tissue for a complete evaluation of the endometrial cavity , bleeding, infectio n, possible need for blood transfusion with all its risk ( HIV,syphilis, Hepatitis, anaphylaxis shock, others..), injury to bladder, rectum, possible need for laparoscopy/laparotomy or hysterectomy. The patient verbalized understanding and signed the consent. Instructions given the patient to schedule a 2 week postoperative appointment Coding Level of Care Code Est Pt Level 3 (55594) Diagnoses Abnormal uterine bleeding (AUB) N93.9
[2023-03-07 09:29] VITALS: BP 110/68; BMI 37.8
== END 2023-03-07 14:36 | disposition home or self-care (01) ==
PROVIDERS: PCP Internal Medicine; Visit Provider Obstetrics & Gynecology
DX: N93.9 Abnormal uterine and vaginal bleeding, unspecified (principal)
CPT/HCPCS: 99213

== ENCOUNTER → 2023-03-07 08:47 | Outpatient (BNVA) | payer OTHER, SELFPAY | PROVIDERS: PCP Internal Medicine; Visit Provider Obstetrics & Gynecology | DX: N93.9 Abnormal uterine and vaginal bleeding, unspecified (principal) | CPT/HCPCS: 99212 ==

== ENCOUNTER 2023-03-12 10:41 | Day surgery (SDC) | payer OTHER, SELFPAY ==
--- NOTE | 2023-03-11 09:39 | HO.ANESPROP2 ---
Documented by User: Maye Alford NP 03/11/23 09:42 HPI - Anesthesia Eval Consult details Narrative: 42yo F for D&C Hysteroscopy,poss polypectomy,poss myomectomy PMFSH Active Problems Active Problems: All Active Problems (Updated 03/07/23 @ 09:27 by Owen Mclean MD) Abnormal uterine bleeding (AUB) (Acute) Diabetes mellitus type 2 in obese (Acute) Dysfunctional uterine bleeding (Acute) Breast lump on right side at 11 o'clock position (Acute) Stress at home (Acute) Anxiety, generalized (Acute) Major depression, recurrent (Acute) Encounter for general adult medical examination with abnormal findings (Acute) Leg pain (Acute) PAD (peripheral artery disease) (Acute) Varicose veins of both legs with edema (Acute) Diabetes mellitus (Acute) Swelling of lower extremity (Acute) Right lumbar radiculitis (Acute) Pre-employment examination (Acute) Low back pain (Acute) Recurrent boils (Acute) Fatty liver (Acute) Hospital discharge follow-up (Acute) Headache, migraine (Acute) Morbid obesity due to excess calories (Acute) Uncontrolled diabetes mellitus (Acute) Folliculitis (Acute) Abscess (Acute) Past Medical History Medical History Diabetes mellitus type 2 in obese Anxiety, generalized Major depression, recurrent PAD (peripheral artery disease) Pre-employment examination Recurrent boils Social History Social History Housing: House Alcohol intake: never Patient Tobacco Use Status: Never used Tobacco e-Cigarette/Vaping Use: Never Used Second Hand Smoke Exposure: Yes (as a child) Use of substances other than those prescribed or required for medical reasons: No Are you DNR?: No Advance Directives: No Advance Directives Information Provided: Yes Current occupational status: employed Cognitive needs: No Hearing needs: No Vision needs: No Meds Allergies Allergy/AdvReac Type Severity Reaction Status Date / Time cefazolin [CEFAZOLIN] Allergy Mild LOCALIZED Verified 03/12/23 10:50 ITCHING AT INJECTION SITE shellfish derived Allergy Mild Itching Verified 03/12/23 10:50 cephalexin [CEPHALEXIN] Allergy Unknown UNKNOWN, Verified 03/12/23 10:50 ITCHING metronidazole [Flagyl] Allergy Unknown Unknown Verified 03/12/23 10:50 Home Medications Medication Instructions Recorded Confirmed Last Taken Type tramadol 50 mg tablet 50 mg PO BID PRN 01/01/23 01/22/23 Unknown History Exam Pertinent Lab Results Pertinent Lab Results: Laboratory Tests 01/01/23 02/21/23 10:08 09:10 WBC 6.6 Hgb 12.2 Hct 37.1 Plt Count 239 Sodium 138 Potassium 4.1 Chloride 105 Carbon Dioxide 27 BUN 7 L Creatinine 0.72 Assessment and Plan Assessment Anesthesia Assessment: Chart Reviewed Documented by User: Anil Pichardo MD 03/12/23 12:29 PMFSH Past Medical History Medical History Diabetes mellitus type 2 in obese Anxiety, generalized Major depression, recurrent PAD (peripheral artery disease) Pre-employment examination Recurrent boils Patient : No Family History Family history of problems with anesthesia: No Surgical History History of Problems with Anesthesia: No Social History Social History Housing: House Alcohol intake: never Patient Tobacco Use Status: Never used Tobacco e-Cigarette/Vaping Use: Never Used Second Hand Smoke Exposure: Yes (as a child) Use of substances other than those prescribed or required for medical reasons: No Are you DNR?: No Advance Directives: No Advance Directives Information Provided: Yes Current occupational status: employed Cognitive needs: No Hearing needs: No Vision needs: No Meds Allergies Allergy/AdvReac Type Severity Reaction Status Date / Time cefazolin [CEFAZOLIN] Allergy Mild LOCALIZED Verified 03/12/23 10:50 ITCHING AT INJECTION SITE shellfish derived Allergy Mild Itching Verified 03/12/23 10:50 cephalexin [CEPHALEXIN] Allergy Unknown UNKNOWN, Verified 03/12/23 10:50 ITCHING metronidazole [Flagyl] Allergy Unknown Unknown Verified 03/12/23 10:50 Home Medications Medication Instructions Recorded Confirmed Last Taken Type tramadol 50 mg tablet 50 mg PO BID PRN 01/01/23 01/22/23 Unknown History Exam Airway Mallampati Class: II TM Dist: <=3cm Neck ROM: Full Loose/Missing/Broken Teeth: No Heart: ok Lungs: ok Assessment and Plan Assessment Anesthesia Assessment: Anesthesia Plan Discussed Final Anesthetic Review Family History of Problems with Anesthesia: No History of Problems with Anesthesia: No NPO: Yes ASA Class: III Final Preanesthetic Review: No Changes in Pt Med Stat, Meds/Allgs Chart Reviewed, Consent Obtained/Reviewed and Anes Risks/Benef Reviewed Patient Risk: Intermediate Procedure Risk: Low Anesthetic Plan Anesthetic Plan: GA and Agree w/ Assess. and Plan Disposition: Standard PACU
[2023-03-12] VITALS (7 sets, daily range): BP systolic 117–144; BP diastolic 66–89; PULSE 71–84; RESP 16–18; TEMP 36.1–36.3; O2SAT 100; BMI 37.6
[2023-03-12 11:07] LABS: UPreg QC Valid YES; Urine Pregnancy NEGATIVE (NEGATIVE)
[2023-03-12 11:12] LABS: Glucose, Whole Blood 117 mg/dL (60-115)
[2023-03-12] MEDS: Lactated Ringers 1,000 ML 100 ML IVCONT (11:15)
--- NOTE | 2023-03-12 12:32 | MHC.SHP ---
Pre-Procedural Eval Section A Date of Service: 03/12/23 The patient is an INPATIENT: No Changes since office visit: No Cold of Flu in the past 2 weeks, No New Medical Problems, No Changes in Medication and No Patient answered all questions The History & Physical has been completed within 30 days and I have reviewed it.: Yes Section B Chief Complaint: Abnormal uterine and vaginal bleeding, unspecified Allergies: Allergies Allergy/AdvReac Type Severity Reaction Status Date / Time cefazolin [CEFAZOLIN] Allergy Mild LOCALIZED Verified 03/12/23 10:50 ITCHING AT INJECTION SITE shellfish derived Allergy Mild Itching Verified 03/12/23 10:50 cephalexin [CEPHALEXIN] Allergy Unknown UNKNOWN, Verified 03/12/23 10:50 ITCHING metronidazole [Flagyl] Allergy Unknown Unknown Verified 03/12/23 10:50 Plan Diagnosis/Plan: Unchanged I have reviewed the history and physical and performed a pertinent physical examination on my patient. No changes have occurred unless specified. Time Spent With Patient Time: Total time managing care of this patient today ____ minutes.
--- NOTE | 2023-03-12 13:17 | PM.OP ---
Brief Operative Note Date of Service: 03/12/23 Pre-op diagnosis: Abnormal uterine bleeding, squamous morules on EMB pathology Post-op diagnosis: same (Endometrial polyp) Procedure: Hysteroscopy D&C, Polypectomy Surgeon: Owen Mclean MD Anesthesia: GLMA Was an Industrial Engineering Professor used for this Procedure?: No Estimated blood loss (mL): 0 Pathology: other (Endometrial Scrapping. Polyp) Condition: stable Disposition: PACU
--- NOTE | 2023-03-12 13:18 | W.PM.OPN ---
Operative Note Operative Note Date of Service: 03/12/23 Narrative: Preop Diagnosis: Abnormal uterine bleeding, squamous Morules on EMB pathology Operation: Diagnostic Hysteroscopy, Dilataion & Curettage and polypectomy Post Op Diagnosis: Endometrial Polyp QBL: Minimal Anesthesia: GLMA Surgeon: Owen Mclean MD Screw Supervisor: None Complication: None Pathology: Endometrial Scrapings, Endometrial polyp Procedure: The patient was put in the dorsal lithotomy position, scrubbed, and draped in the usual manner. A sterile speculum was inserted in the patient's vagina. The anterior lip of the cervix was grasped with a single tooth tenaculum. The cervix was dilated up to 5 mm, then the scope was inserted in the patient's uterus. Inspection revealed endometrial polyp. The Myosure Reach device was used; it was introduced through the operative channel and polypectomy done with no complications. The scope was then taken out from the uterine cavity, sharp curettings was carried on with minimal to moderate amount of tissues retrieved. At the end of the procedure, all instruments were taken out of the patient uterine and vaginal cavity. The single tooth tenaculum was removed and homeostasis was assured using pressure,. The patient tolerated the procedure well and was transferred to the PACU in a stable condition.
[2023-03-12] MEDS: fentaNYL citrate/PF 100 MCG/2 ML VIAL 50 MCG IVPUSH (13:28)
[2023-03-12] MEDS: Acetaminophen 325 MG TABLET 650 MG PO (14:12)
[2023-03-12] MEDS: oxyCODONE HCl Immed Release 5 MG TABLET PO (14:12)
--- NOTE | 2023-03-12 14:55 | PC.NURSE ---
pT UP TO br PRIOR TO LEAVING. fELT INCREASED AMT OF PRESSURE VAGINALLY. UNABLE TO VOID. BTB. BLADDER SCANNED FOR [address] CC X2. TC TO DR SIERRA. VSS NO DRAINAGE NOTED ON PERIPAD DR SIERRA HERE TO SEE PT ABLE TO DC HOME. IV DC'D AND PT DRESSED PER SELF
== END 2023-03-12 15:19 | disposition home or self-care (01) ==
PROVIDERS: Nurse Practitioner; PCP Internal Medicine; Visit Provider Obstetrics & Gynecology
PROC: 0UDB8ZZ Extraction of Endometrium, Via Natural or Artificial Opening Endoscopic (ICD-10-PCS; CPT 58558; principal; 2023-03-12 12:30)
DX: N93.9 Abnormal uterine and vaginal bleeding, unspecified (principal); N85.02 Endometrial intraepithelial neoplasia [EIN]; E11.69 Type 2 diabetes mellitus with other specified complication; E66.01 Morbid (severe) obesity due to excess calories; Z68.37 Body mass index [BMI] 37.0-37.9, adult; F33.9 Major depressive disorder, recurrent, unspecified; Z87.2 Personal history of diseases of the skin and subcutaneous tissue; Z79.899 Other long term (current) drug therapy; Z88.1 Allergy status to other antibiotic agents
CPT/HCPCS: 58558; 81025; 82947; 88305; J1885; J2405; J2704; J3010

== ENCOUNTER → 2023-03-12 10:41 | Outpatient (BNV) | payer OTHER, SELFPAY | PROVIDERS: PCP Internal Medicine; Visit Provider Obstetrics & Gynecology | DX: N84.0 Polyp of corpus uteri (principal); N93.9 Abnormal uterine and vaginal bleeding, unspecified | CPT/HCPCS: 58558 ==

== ENCOUNTER 2023-03-18 08:46 | Outpatient (AMB) | payer OTHER, SELFPAY ==
--- NOTE | 2023-03-18 09:12 | MHC.OFFVIS ---
Intake Vital Signs 03/18/23 09:14 Height 5 ft 5 in Weight 226 lb BMI 37.6 BP 112/70 Intake Visit Reasons: post op Allergies cefazolin [CEFAZOLIN] Allergy (Mild, Verified 03/18/23 09:13) LOCALIZED ITCHING AT INJECTION SITE shellfish derived Allergy (Mild, Verified 03/18/23 09:13) Itching cephalexin [CEPHALEXIN] Allergy (Unknown, Verified 03/18/23 09:13) UNKNOWN, ITCHING metronidazole [Flagyl] Allergy (Unknown, Verified 03/18/23 09:13) Unknown HPI HPI Comments History of Present Illness Details The patient is presenting post hysteroscopy D&C no complaints minimal vaginal bleeding no feverishness chills or abdominal pain. The pathology showed the following: A. Endometrium, curettage: Fragments of endometrial polyp with atypical endometrial hyperplasia/ endometrioid intraepithelial neoplasia (EIN) and squamous metaplasia, and background proliferative endometrium. B. Endometrial polyp, resection: Fragments of endometrial polyp with atypical endometrial hyperplasia/endometrioid intraepithelial neoplasia (EIN), hyperplasia without atypia, squamous metaplasia and chronic endometritis (likely due to polyp) [facility] Medical History Diabetes mellitus type 2 in obese Anxiety, generalized Major depression, recurrent PAD (peripheral artery disease) Pre-employment examination Recurrent boils Social History Housing: House Alcohol intake: never Patient Tobacco Use Status: Never used Tobacco e-Cigarette/Vaping Use: Never Used Second Hand Smoke Exposure: Yes (as a child) Current occupational status: employed Cognitive needs: No Hearing needs: No Vision needs: No Review of Systems Const All systems reviewed & are unremarkable except as noted in HPI and below Reports as per HPI and Reports no additional complaints GI Reports no additional complaints Reports no additional complaints Physical Exam Vital Signs: Last Vital Signs BP 112/70 03/18/23 09:14 BMI result Body Mass Index 37.6 Assessment & Plan Assessment & Plan (1) EIN (endometrial intraepithelial neoplasia): Code(s): N85.02 - Endometrial intraepithelial neoplasia [EIN] Plan: Discussed with the patient the pathology of D&C showing endometrial intraepithelial neoplasia. Discussed with the patient the following: -If untreated the risk of progression of EIN to endometrial carcinoma is 83 percent, -Coexistent endometrial carcinoma may be present in up to 40 percent of patients with EH with atypia -Given the high risk of concurrent, or progression to, endometrial carcinoma, for most premenopausal patients who have completed childbearing, hysterectomy for treatment of EH with atypia is the preferred treatment. -Other options of treatment discussed with the patient include Progestin therapy: A- levonorgestrel (LNG)-releasing intrauterine device (IUD; LNG 52), could be an alternative treatment, though long-term surveillance and medical therapy are required and treatment may not be curative, as with hysterectomy.This will be an option in following patients: B-Progestin therapy includes intrauterine and oral progestins. There is a risk of 15 percent of the persistence of endometrial carcinoma and 23% risk of recurrence, the risk of which can increase with time. While various oral progestin therapies are effective for this indication, the LNG 52 IUD (Mirena, Liletta) is the most effective first-line therapy , compared with oral progestins levonorgestrel IUD treatment is associated with higher regression rates (90 versus 69 percent in oral progestin and lower relapse rates (27 versus 50 percent). After further discussion, the patient is interested in surgical management. Due to the the risk of associated endometrial carcinoma will refer to [facility] for further management. Appointment scheduled with Dr. Oneal at [facility] on 03/22/2023, the patient is aware. Orders: Referrals Gynecologic Oncology Referral N85.02 - Endometrial intraepithelial neoplasia [EIN] Coding Level of Care Code Est Pt Level 3 (50522) Diagnoses EIN (endometrial intraepithelial neoplasia) N85.02
[2023-03-18 09:14] VITALS: BP 112/70; BMI 37.6
== END 2023-03-18 10:20 | disposition home or self-care (01) ==
LOC: HO.HWS 08:46
PROVIDERS: PCP Internal Medicine; Visit Provider Obstetrics & Gynecology
DX: N85.02 Endometrial intraepithelial neoplasia [EIN] (principal)
CPT/HCPCS: 99213

== ENCOUNTER → 2023-03-18 08:46 | Outpatient (BNVA) | payer OTHER, SELFPAY | PROVIDERS: PCP Internal Medicine; Visit Provider Obstetrics & Gynecology | DX: N85.02 Endometrial intraepithelial neoplasia [EIN] (principal) | CPT/HCPCS: 99212 ==

== ENCOUNTER 2023-06-04 08:35 | Outpatient (AMB) | payer OTHER, SELFPAY ==
--- NOTE | 2023-06-04 08:37 | MHC.PC.OV ---
Vital Signs 06/04/23 08:40 Height 5 ft 5 in Weight 225 lb 7 oz BMI 37.5 BP 116/72 Blood Pressure Location Lt brachial Position Sitting Pulse 83 Pulse Source Pulse Oximeter Pulse Oximetry (%) 100 Oxygen Delivery Method Room Air Intake Visit Reasons: 4 Month follow up Library Monitor Required: No Accompanied by: Self / Same As Patient Allergies cefazolin [CEFAZOLIN] Allergy (Mild, Verified 06/04/23 08:40) LOCALIZED ITCHING AT INJECTION SITE shellfish derived Allergy (Mild, Verified 06/04/23 08:40) Itching cephalexin [CEPHALEXIN] Allergy (Unknown, Verified 06/04/23 08:40) UNKNOWN, ITCHING metronidazole [Flagyl] Allergy (Unknown, Verified 06/04/23 08:40) Unknown Medication List - Last Reconciled 06/04/23 by Naz Sandhu MD blood sugar diagnostic (FreeStyle Lite Strips) PATIENT TO CHECK BLOOD SUGAR DAILY blood-glucose meter (FreeStyle Lite Meter kit) patient to check blood sugar daily epinephrine (EpiPen) 0.3 mg (0.3 mL) IM Q10M PRN 90 days gabapentin 300 mg PO BID glipizide 10 mg PO ONCE 90 days lancets (FreeStyle Lancets) patient to check blood sugar daily as needed lidocaine 5% 1 patch topical DAILY PRN pioglitazone (Actos) 30 mg PO DAILY 90 days tramadol 50 mg PO BID PRN Tobacco use date assessed: 06/04/23 Dental Screening Dental Screen Date: 06/04/23 Did you have a dental visit in the last 12 months?: Yes Did you have a dental problem in the last 6 months where you did not have access to dental care?: No Was dental information given to patient?: Patient has dentist HPI 4 Month follow up HPI Details Patient is 42-year-old female Anxiety: Current take Lexapro due to side effect of headache She is still waiting for our behavior health coordinator to call her and set her up with therapist. Lab order placed to be done before next visit in 3 months Patient had uterine cancer went through hysterectomy, ovaries were left high but she continued to have hot flashes after the surgery She says that she will book appointment for follow-up, meanwhile I have ordered FS, LH for her Diabetes mellitus: Patient is on glipizide 10 mg once a day and pioglitazone 30 mg, Hemoglobin A1c 6.8 today Patient also was to pain management for chronic lumbar pain and is on gabapentin 300 mg b.i.d. through them BMI is 37.5 patient is trying to lose weight Follow-up 3 months PFS Medical History Diabetes mellitus type 2 in obese Anxiety, generalized Major depression, recurrent PAD (peripheral artery disease) Pre-employment examination Recurrent boils Surgical History S/P MARYA (total abdominal hysterectomy) Social History Housing: House Alcohol intake: never Patient Tobacco Use Status: Never used Tobacco e-Cigarette/Vaping Use: Never Used Second Hand Smoke Exposure: Yes (as a child) Current occupational status: employed Cognitive needs: No Hearing needs: No Vision needs: No Questionnaire PHQ-9 Over the last 2 weeks, how often have you been bothered by any of the following problems? 1. Little interest or pleasure in doing things: not at all 2. Feeling down, depressed, or hopeless: not at all 3. Trouble falling or staying asleep, or sleeping too much: not at all 4. Feeling tired or having little energy: not at all 5. Poor appetite or overeating: not at all 6. Feeling bad about yourself - or that you are a failure or have let yourself or your family down: not at all 7. Trouble concentrating on things, such as reading the newspaper or watching television: not at all 8. Moving or speaking so slowly that other people could have noticed. Or the opposite - being so fidgety or restless that you have been moving around a lot more than usual: not at all 9. Thoughts that you would be better off or of hurting yourself in some way: not at all Total score: 0 Depression Screening Interpretation: Negative Depression Screening Done: Yes 10125 - PHQ-9 Billing: Yes Source: Developed by Drs. Kendrick Israel, Destiny Issa, Krish Harkins and colleagues, with an educational charline from [employer]. Thrive Questionnaire Date Thrive assessed: 06/04/23 I am a: Patient What is your living situation today?: I have a steady place to live Within the past 12 months, did the food you bought not last and you didn't have the money to get more?: I choose not to answer this question Within the past 12 months, did you worry whether your food would run out before you got money to buy more?: I choose not to answer this question Do you have trouble paying for medicines?: No Do you have trouble getting transportation to medical appointments?: No Do you have trouble paying your heating and electricity bill?: No Do you have trouble taking care of your child, family member or friend?: No Do you have trouble with day-to-day activities such as bathing, preparing meals, shopping, managing finances, etc.?: No Are you currently unemployed and looking for a job?: No Are you interested in more education?: No Please select the resources that you would like help with: None Currently or been in a relationship where the following occur: no concerns reported THRIVE Score: 0 AUDIT C Alcohol Use Questionnaire (AUDIT-C) 1. How often do you have a drink containing alcohol?: Never 3. How often do you have six or more drinks on one occasion?: Never Total Score: 0 Score Reviewed/Action Taken: Yes MICHAEL-7 AMB Questionnaire MICHAEL-7 Date MICHAEL - 7 assessed: 06/04/23 Feeling nervous, anxious, or on edge: 0 = Not at all Not being able to stop or control worryin = Not at all Worrying too much about different things: 0 = Not at all Trouble relaxin = Not at all Being so restless that it is hard to sit still: 0 = Not at all Becoming easily annoyed or irritable: 0 = Not at all Feeling afraid as if something awful might happen: 0 = Not at all Total MICHAEL-7 score (0-4 normal; 5-9 mild; 10-14 moderate; 15-21 severe): 0 Source: Developed by Drs. Kendrick Israel, Destiny Issa, Krish Harkins and colleagues, with an educational charline from [employer]. MICHAEL-7 Assessment Billing MICHAEL-7 Assessment Tool: MICHAEL-7 Assessment 20936 Review of Systems Const Denies chills and Denies fever(s) ENT Denies epistaxis and Denies nasal discharge Card Denies chest pain Resp Denies chest congestion, Denies cough and Denies hemoptysis GI Denies diarrhea and Denies nausea Skin/Breast Denies rash Neuro Reports no additional complaints Psych Reports no additional complaints Endo Reports no additional complaints Physical exam (Primary Care) Vital Signs: Last Vital Signs Pulse 83 06/04/23 08:40 BP 116/72 06/04/23 08:40 Pulse Ox 100 06/04/23 08:40 Oxygen Delivery Method Room Air 06/04/23 08:40 BMI result Body Mass Index 37.5 Tobacco/Smoking Status: Tobacco use Status Tobacco use date assessed 06/04/23 06/04/23 08:41 Patient Tobacco Use Status Never used Tobacco 06/04/23 08:41 e-Cigarette/Vaping Use Never Used 06/04/23 08:41 PHQ-9: PHQ-9 Score PHQ-9: Total score 0 06/04/23 09:04 Depression Screening Interpretation: Negative Thrive Assessment: Date of Thrive Assessment Date Thrive assessed 06/04/23 06/04/23 08:41 Currently or been in a relationship where the following occur: no concerns reported Const General: cooperative, comfortable and no acute distress Orientation/consciousness: patient oriented x3 HENMT Head: Yes normocephalic Eyes General: appearance normal, both eyes and all related structures Neck Neck: Yes supple Resp Effort & Inspection: normal respiratory effort, no cough and no stridor Cardio Rhythm: regular rhythm Heart sounds: S1 normal heart sound present and S2 normal heart sound present Skin General skin exam: turgor normal Neuro General: patient oriented x3, tone normal and moves all extremities Extrem Right lower extremity: no edema Left lower extremity: no edema Results AMB Hemoglobin A1c AMB Hemoglobin A1c 6.8 % Last Edit by Jordon Gonzalez CMA on 06/04/23 09:01 Results Reviewed Results Reviewed: Laboratory Last Values Hgb A1c (Clinic) 6.8 % (4.0-6.0) H 06/04/23 09:01 Assessment and Plan Assessment & Plan (1) Diabetes mellitus type 2 in obese: Code(s): E11.69 - Type 2 diabetes mellitus with other specified complication; E66.9 - Obesity, unspecified (2) Morbid obesity due to excess calories: Code(s): E66.01 - Morbid (severe) obesity due to excess calories (3) Headache, migraine: Code(s): G43.909 - Migraine, unspecified, not intractable, without status migrainosus Qualifiers: Intractability: intractable Migraine type: other Status migrainosus presence: without status migrainosus Qualified Code(s): G43.819 - Other migraine, intractable, without status migrainosus (4) Fatty liver: Code(s): K76.0 - Fatty (change of) liver, not elsewhere classified (5) Right lumbar radiculitis: Code(s): M54.16 - Radiculopathy, lumbar region (6) Hot flashes: Code(s): R23.2 - Flushing (7) Anxiety, generalized: Code(s): F41.1 - Generalized anxiety disorder Plan Patient is 42-year-old female Anxiety: Current take Lexapro due to side effect of headache She is still waiting for our behavior health coordinator to call her and set her up with therapist. Lab order placed to be done before next visit in 3 months Patient had uterine cancer went through hysterectomy, ovaries were left high but she continued to have hot flashes after the surgery She says that she will book appointment for follow-up, meanwhile I have ordered FS, LH for her Diabetes mellitus: Patient is on glipizide 10 mg once a day and pioglitazone 30 mg, Hemoglobin A1c 6.8 today Patient also was to pain management for chronic lumbar pain and is on gabapentin 300 mg b.i.d. through them BMI is 37.5 patient is trying to lose weight Headaches are stable Follow-up 3 months Orders: Orders Complete Blood Count Auto Diff Today E11.69 - Type 2 diabetes mellitus with other specified complication, E66.01 - Morbid (severe) obesity due to excess calories, E66.9 - Obesity, unspecified, G43.909 - Migraine, unspecified, not intractable, without status migrainosus, K76.0 - Fatty (change of) liver, not elsewhere classified, M54.16 - Radiculopathy, lumbar region Microalbumin, Random (w Creat) Today E11.69 - Type 2 diabetes mellitus with other specified complication, E66.01 - Morbid (severe) obesity due to excess calories, E66.9 - Obesity, unspecified, G43.909 - Migraine, unspecified, not intractable, without status migrainosus, K76.0 - Fatty (change of) liver, not elsewhere classified, M54.16 - Radiculopathy, lumbar region LDL Cholesterol Direct Today E11.69 - Type 2 diabetes mellitus with other specified complication, E66.01 - Morbid (severe) obesity due to excess calories, E66.9 - Obesity, unspecified, G43.909 - Migraine, unspecified, not intractable, without status migrainosus, K76.0 - Fatty (change of) liver, not elsewhere classified, M54.16 - Radiculopathy, lumbar region Comprehensive Met. Panel Today E11.69 - Type 2 diabetes mellitus with other specified complication, E66.01 - Morbid (severe) obesity due to excess calories, E66.9 - Obesity, unspecified, G43.909 - Migraine, unspecified, not intractable, without status migrainosus, K76.0 - Fatty (change of) liver, not elsewhere classified, M54.16 - Radiculopathy, lumbar region Hemoglobin A1c Today E11. - Type 2 diabetes mellitus with other specified complication, E66.01 - Morbid (severe) obesity due to excess calories, E66.9 - Obesity, unspecified, G43.909 - Migraine, unspecified, not intractable, without status migrainosus, K76.0 - Fatty (change of) liver, not elsewhere classified, M54.16 - Radiculopathy, lumbar region Lutenizing Hormone Today R23.2 - Flushing Follicle Stimulating Hormone Today R23.2 - Flushing AMB Hemoglobin A1c Today Z13.9 - Encounter for screening, unspecified Medications: Refilled pioglitazone (Actos) 30 mg PO DAILY 90 tabs 0RF 90 days Coding Level of Care Code Est Pt Level 4 (52433) Diagnoses Diabetes mellitus type 2 in obese E11.69; E66.9 Morbid obesity due to excess calories E66.01 Other migraine without status migrainosus, intractable G43.819 Intractability: intractable Migraine type: other Status migrainosus presence: without status migrainosus Fatty liver K76.0 Right lumbar radiculitis M54.16 Hot flashes R23.2 Anxiety, generalized F41.1 Additional Codes MICHAEL-7 Assessment Billing - MICHAEL-7 Assessment Tool: MICHAEL-7 Assessment 01307 ([id number])
[2023-06-04 08:40] VITALS: BP 116/72; PULSE 83; O2SAT 100; BMI 37.5
== END 2023-06-04 09:02 | disposition home or self-care (01) ==
PROVIDERS: PCP Internal Medicine; Visit Provider Internal Medicine
DX: E11.69 Type 2 diabetes mellitus with other specified complication (principal); E66.01 Morbid (severe) obesity due to excess calories; E66.9 Obesity, unspecified; Z68.37 Body mass index [BMI] 37.0-37.9, adult; G43.819 Other migraine, intractable, without status migrainosus; K76.0 Fatty (change of) liver, not elsewhere classified; M54.16 Radiculopathy, lumbar region; R23.2 Flushing; F41.1 Generalized anxiety disorder
CPT/HCPCS: 83036; 99214

== ENCOUNTER 2023-07-05 09:12 | Outpatient (REF) | payer OTHER, SELFPAY ==
--- NOTE | ~2023-07-05 | XR_ITS ---
EXAMINATION: XR HAND, RIGHT CLINICAL INFORMATION: Pain in the right hand COMPARISON: None available. TECHNIQUE: PA, lateral, and oblique views of the right hand. FINDINGS: The bones and soft tissues are normal. No fracture. Alignment is anatomic. Joint spaces are maintained. No erosions or soft tissue calcifications. XR/XR hand RT min 3V IMPRESSION: Normal right hand.
== END 2023-07-05 09:13 | disposition home or self-care (01) ==
LOC: HO.XRAY 09:12
PROVIDERS: PCP Internal Medicine; Visit Provider Physical Medicine & Rehabilitation
DX: M79.641 Pain in right hand (principal)
CPT/HCPCS: 73130

== ENCOUNTER 2023-07-25 12:28 | Outpatient (REF) | payer OTHER, SELFPAY ==
--- NOTE | ~2023-07-25 | XR_ITS ---
EXAMINATION: XR LUMBOSACRAL SPINE WITH FLEXION AND EXTENSION VIEWS CLINICAL INFORMATION: Radiculopathy, lumbar region COMPARISON: Lumbar spine TECHNIQUE: AP, lateral and lateral flexion and extension views of the lumbar spine were obtained FINDINGS: There 5 nonrib-bearing lumbar-type vertebral bodies. The height of vertebral bodies is well-maintained. Interval development of mild disc space narrowing with marginal osteophyte formation at L4-L5. Question of L4 spondylolysis. No spondylolisthesis. No change in alignment with flexion and extension. Cholecystectomy clips are seen. XR/XR lumbar spine 4V min IMPRESSION: 1. Mild degenerative disc disease at L4-L5. 2. No change in alignment with flexion and extension. 3. Question of L4 spondylolysis. CT scan or MRI scan could be obtained for further evaluation.
== END 2023-07-25 12:29 | disposition home or self-care (01) ==
LOC: HO.HOSX 12:28
PROVIDERS: PCP Internal Medicine; Visit Provider Physician Assistant
DX: M54.16 Radiculopathy, lumbar region (principal)
CPT/HCPCS: 72110; 99212

== ENCOUNTER 2023-07-25 12:28 | Outpatient (AMB) | payer OTHER, SELFPAY ==
--- NOTE | 2023-07-25 12:45 | A.SPINEOV_ITS ---
Intake Visit Reasons: Lumbar radiculopathy Intake Note: Ms. Zamora is here today c/o Low back pain that radiates down to both legs. Metal Welder Required: No Allergies cefazolin [CEFAZOLIN] Allergy (Mild, Verified 07/25/23 12:46) LOCALIZED ITCHING AT INJECTION SITE shellfish derived Allergy (Mild, Verified 07/25/23 12:46) Itching cephalexin [CEPHALEXIN] Allergy (Unknown, Verified 07/25/23 12:46) UNKNOWN, ITCHING metronidazole [Flagyl] Allergy (Unknown, Verified 07/25/23 12:46) Unknown Assessment & Plan Assessment & Plan (1) Lumbar radiculopathy: Code(s): M54.16 - Radiculopathy, lumbar region Category: Medical Plan Dear Pro, Thank you for referring Albert to our office today. She is a pleasant 42-year-old female comes in today with a chief complaint of low back pain with radiculopathy into her bilateral lower extremities. Predominantly, today she states that her left leg is the primary issue of concern. She reports that she did have a bilateral lower extremity shooting pains, but thankfully her right sided radiculopathy has resolved since a L5-S1 LIZETTE completed by Dr. Cisneros. Today, she reports continued shooting pains into her left lower extremity. When describing her radiculopathy she runs her hand over the lateral aspect of her left hip down the side of her leg to the postero-lateral gastrocnemius. Upon review of her incoming medical records it appears that Dr. Cisneros did complete left-sided L4 and L5 TFESI which provided the patient with 1 week of symptom relief. She states that she has been complaining physician directed home exercise, is currently taking tramadol 50 mg as needed, and has exhausted arym-cfh-rdxdcgb remedies such as Tylenol, ibuprofen, and pain gel/creams. 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. 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 PMH: Type 2 diabetes, last A1c was 6.8. High blood pressure, GERD. Social hx: Patient does not smoke, reports no substance use. Medications: Gabapentin, glipizide, lidocaine patches, pioglitazone, tramadol, omeprazole, EpiPen. Allergies: Shellfish, cephalexin. Physical exam: The patient has 4/5 strength with left sided knee extension (pain limiting) and initially had 4/5 strength with dorsiflexion/EHL on the left was able to push through to 5/5 strength although she elicited pain. Strength is 5/5 elsewhere. She reports no sensational deficits. She sits favoring her right side bracing herself on the chair. She walks with an antalgic gait favoring the right side. (+) left-sided straight leg raise. (+) left-sided Kelley's. (-) clonus. (-) Ellen finger test. Imaging review: MRI of the lumbar spine completed at [facility] on 10/27/2022 shows severe left-sided foraminal stenosis at L4-5, causing significant impingement on the left-sided L5 nerve root. At L3-4 there is moderate right-sided foraminal stenosis. The patient also has fairly significant facet arthropathy diffusely throughout the lumbar spine, worse at L4-5 and L5-S1. Impression: Albert is a pleasant 42-year-old female comes in today with a chief complaint of low back pain with radiation into her left lower extremity. When describing her radiation of pain it sounds to be in a L5 dermatomal distribution on the left, however is not affecting the top of her foot / great toe as I would expect with an L5 impingement. There is good evidence suggesting that the impingement on the left at L4-5 is the cause of her left-sided radiculopathy, given that left-sided L4 and L5 foraminal steroid injections were able to produce symptom relief. I discussed the possibility of a simple foraminotomy and/or lumbar decompression on the left to potentially resolve her symptoms. The patient is amenable to the idea of surgery. I informed her that I will discuss her case with Dr. Oneill, and call her next week if he is able to offer her a surgery that will help to resolve her symptoms. Thank you for allowing us to care for your patient. The total time spent with this visit with this patient was 45 minutes reviewing history, physical exam, MRI imaging review, and implementation of treatment plan or further diagnostic testing Tyrone Oneill MD,PhD [facility] Orders: Orders XR lumbar spine 4V min Today M54.16 - Radiculopathy, lumbar region Coding Level of Care Code Est Pt Level 4 (89326) Diagnoses Lumbar radiculopathy M54.16
== END 2023-07-25 14:18 | disposition home or self-care (01) ==
PROVIDERS: PCP Internal Medicine; Referring Provider Physician Assistant; Visit Provider Physician Assistant
DX: M54.16 Radiculopathy, lumbar region (principal)
CPT/HCPCS: 99214

== ENCOUNTER 2023-08-14 08:37 | Outpatient (REF) | payer OTHER, SELFPAY ==
[2023-08-14 08:57] LABS: MANUAL DIFF FLAG NO
[2023-08-14 09:17] LABS: Basophils Percent Auto 0.3 % (0-2); Eosinophils Absolute Auto 0.1 X10*3/uL (0.0-0.4); Eosinophils Percent Auto 1.2 % (0-4); Hematocrit 37.6 % (37.0-47.0); Hemoglobin 12.5 g/dl (12.0-16.0); Imm Gran Abs Auto 0.02 X10*3/uL (0.00-0.03); Imm Gran Pct Auto 0.3 % (0.0-0.4); Lymphocytes Absolute Auto 1.7 X10*3/uL (1.2-4.9); Lymphocytes Percent Auto 27.7 % (20-40); Mean Corpuscular HGB Conc 33.2 g/dl (31.0-35.0); Mean Corpuscular Hemoglobin 28.4 pg (27.0-33.0); Mean Corpuscular Volume 85.5 fL (80.0-98.0); Mean Platelet Volume 9.3 fL (9.4-12.3); Monocytes Absolute Auto 0.5 X10*3/uL (0.1-1.2); Monocytes Percent Auto 8.7 % (2-11); Neutrophils Absolute Auto 3.7 x10*3/uL (2.0-8.3); Neutrophils Percent Auto 61.8 % (45-73); Platelet Count 254 X10*3/uL (160-400); Red Cell Distribution Width 13.2 % (11.0-16.0)
[2023-08-14 09:24] LABS: Estimated Average Glucose 134 mg/dL; Hemoglobin A1C 150.9252 umol/L; Hemoglobin A1c % 6.3 % (<6.0)
[2023-08-14 09:40] LABS: Alanine Aminotransferase 24 U/L (0-31); Alkaline Phosphatase 56 U/L (39-117); Anion Gap 11 (12-20); Aspartate Amino Transferase 22 U/L (5-31); Bilirubin Total 1.1 mg/dL (0.0-1.0); Blood Urea Nitrogen 17 mg/dL (9-16); Calcium 9.1 mg/dL (8.4-10.2); Carbon Dioxide 26 mmol/L (22-29); Chloride 106 mmol/L (96-108); Estimated Glomerular Filt Rate > 60; Glucose Random 75 mg/dL (60-115); Potassium 4.3 mmol/L (3.3-5.1); Sodium 139 mmol/L (135-145); Total Protein 7.2 g/dL (6.5-8.0)
[2023-08-14 10:26] LABS: Creatinine Urine 76.68 mg/dL; Microalbumin Urine < 5.0 mg/L
[2023-08-15 23:34] LABS: Follicle Stimulating Hormone 8.8 mIU/mL
[2023-08-16 11:34] LABS: LDL Cholesterol Direct 111 mg/dL (<100)
== END 2023-08-14 08:38 | disposition home or self-care (01) ==
LOC: HO.LAB 08:37
PROVIDERS: PCP Internal Medicine; Visit Provider Internal Medicine
DX: E66.01 Morbid (severe) obesity due to excess calories (principal); G43.909 Migraine, unspecified, not intractable, without status migrainosus; K76.0 Fatty (change of) liver, not elsewhere classified; M54.16 Radiculopathy, lumbar region; E11.69 Type 2 diabetes mellitus with other specified complication; E66.9 Obesity, unspecified; R23.2 Flushing
CPT/HCPCS: 36415; 80053; 82043; 82570; 83001; 83002; 83036; 83721; 85025

== ENCOUNTER 2023-08-23 08:04 | Outpatient (AMB) | payer OTHER, SELFPAY ==
--- NOTE | 2023-08-23 08:10 | MHC.PC.OV ---
Vital Signs 08/23/23 08:11 Height 5 ft 5 in Weight 234 lb BMI 38.9 BP 108/70 Blood Pressure Location Lt brachial Position Sitting Pulse 77 Pulse Source Pulse Oximeter Pulse Oximetry (%) 99 Oxygen Delivery Method Room Air Intake Visit Reasons: 3M F/U Allergies cefazolin [CEFAZOLIN] Allergy (Mild, Verified 08/23/23 08:11) LOCALIZED ITCHING AT INJECTION SITE shellfish derived Allergy (Mild, Verified 08/23/23 08:11) Itching cephalexin [CEPHALEXIN] Allergy (Unknown, Verified 08/23/23 08:11) UNKNOWN, ITCHING metronidazole [Flagyl] Allergy (Unknown, Verified 08/23/23 08:11) Unknown Medication List - Last Reconciled 08/23/23 by Naz Sandhu MD blood sugar diagnostic (FreeStyle Lite Strips) PATIENT TO CHECK BLOOD SUGAR DAILY blood-glucose meter (FreeStyle Lite Meter kit) patient to check blood sugar daily epinephrine (EpiPen) 0.3 mg (0.3 mL) IM Q10M PRN 90 days gabapentin 300 mg PO BID glipizide 10 mg PO ONCE 90 days lancets (FreeStyle Lancets) patient to check blood sugar daily as needed lidocaine 5% 1 patch topical DAILY PRN pioglitazone (Actos) 30 mg PO DAILY 90 days tramadol 50 mg PO BID PRN Tobacco use date assessed: 06/04/23 Dental Screening Dental Screen Date: 06/04/23 HPI 3M F/U HPI Details Patient is a 43-year-old female came in today for her regular follow-up appointment for diabetes Labs done recently shows normal kidney functions, hemoglobin A1c of 6.3% Patient is on 2 medication for diabetes, tolerating medication and taking them regularly She continued to feel pain in her back She has history of hysterectomy and after that lower back pain started radiating to her left leg She has been evaluated by Dr. Barraza who did not think surgery will help the patient She has gotten for cortisone injection in her back by Dr. Cisneros pain management but they have not helped her Currently patient is seeing spine clinic, note from 07/25/2023 reviewed Initially patient had radiating pain to both legs but right leg radiculopathy has resolved She was given tramadol script which she is taking only as needed She is also on gabapentin b.i.d. Patient says that she feels as if she is swollen around her ankles I have sent Lasix 20 mg 5 tablets to be taken only once a day for that. Patient will return in January for follow-up on diabetes PFSH Medical History Diabetes mellitus type 2 in obese Anxiety, generalized Major depression, recurrent PAD (peripheral artery disease) Pre-employment examination Recurrent boils Surgical History S/P MARYA (total abdominal hysterectomy) Social History Housing: House Alcohol intake: never Patient Tobacco Use Status: Never used Tobacco e-Cigarette/Vaping Use: Never Used Second Hand Smoke Exposure: Yes (as a child) Current occupational status: employed Cognitive needs: No Hearing needs: No Vision needs: No Questionnaire Thrive Questionnaire Date Thrive assessed: 06/04/23 MICHAEL-7 AMB Questionnaire MICHAEL-7 Date MICHAEL - 7 assessed: 06/04/23 Source: Developed by Drs. Kendrick Israel, Destiny Issa, Krish Harkins and colleagues, with an educational charline from [employer]. Review of Systems Const Denies chills and Denies fever(s) ENT Denies epistaxis and Denies nasal discharge Card Denies chest pain Resp Denies chest congestion, Denies cough and Denies hemoptysis GI Denies diarrhea and Denies nausea Skin/Breast Denies rash Neuro Reports no additional complaints Psych Reports no additional complaints Endo Reports no additional complaints Physical exam (Primary Care) Vital Signs: Last Vital Signs Pulse 77 08/23/23 08:11 BP 108/70 08/23/23 08:11 Pulse Ox 99 08/23/23 08:11 Oxygen Delivery Method Room Air 08/23/23 08:11 BMI result Body Mass Index 38.9 Tobacco/Smoking Status: Tobacco use Status Tobacco use date assessed 06/04/23 08/23/23 08:13 Patient Tobacco Use Status Never used Tobacco 08/23/23 08:13 e-Cigarette/Vaping Use Never Used 08/23/23 08:13 Thrive Assessment: Date of Thrive Assessment Date Thrive assessed 06/04/23 08/23/23 08:13 Const General: cooperative, comfortable and no acute distress Orientation/consciousness: patient oriented x3 [facility] Head: Yes normocephalic Eyes General: appearance normal, both eyes and all related structures Neck Neck: Yes supple Resp Effort & Inspection: normal respiratory effort, no cough and no stridor Cardio Rhythm: regular rhythm Heart sounds: S1 normal heart sound present and S2 normal heart sound present Skin General skin exam: turgor normal Neuro General: patient oriented x3, tone normal and moves all extremities Assessment and Plan Assessment & Plan (1) Diabetes mellitus type 2 in obese: Code(s): E11.69 - Type 2 diabetes mellitus with other specified complication; E66.9 - Obesity, unspecified (2) Morbid obesity due to excess calories: Code(s): E66.01 - Morbid (severe) obesity due to excess calories (3) Anxiety, generalized: Code(s): F41.1 - Generalized anxiety disorder (4) Lumbar radiculopathy: Code(s): M54.16 - Radiculopathy, lumbar region Plan Patient is a 43-year-old female came in today for her regular follow-up appointment for diabetes Labs done recently shows normal kidney functions, hemoglobin A1c of 6.3% Patient is on 2 medication for diabetes, tolerating medication and taking them regularly She continued to feel pain in her back She has history of hysterectomy and after that lower back pain started radiating to her left leg She has been evaluated by Dr. Barraza who did not think surgery will help the patient She has gotten for cortisone injection in her back by Dr. Cisneros pain management but they have not helped her Currently patient is seeing spine clinic, note from 07/25/2023 reviewed Initially patient had radiating pain to both legs but right leg radiculopathy has resolved She was given tramadol script which she is taking only as needed She is also on gabapentin b.i.d. Patient says that she feels as if she is swollen around her ankles I have sent Lasix 20 mg 5 tablets to be taken only once a day for that. Patient will return in January for follow-up on diabetes Still feeling anxious and is waiting for behavior health arrangements Medications: New furosemide (Lasix) 20 mg PO QAM 5 tabs 0RF Refilled glipizide 10 mg PO ONCE 90 tabs 1RF 90 days E11.65 - Type 2 diabetes mellitus with hyperglycemia Coding Level of Care Code Est Pt Level 4 (96535) Complex EM visit Add On G2211 Diagnoses Diabetes mellitus type 2 in obese E11.69; E66.9 Morbid obesity due to excess calories E66.01 Anxiety, generalized F41.1 Lumbar radiculopathy M54.16
[2023-08-23 08:11] VITALS: BP 108/70; PULSE 77; O2SAT 99; BMI 38.9
== END 2023-08-23 09:04 | disposition home or self-care (01) ==
PROVIDERS: PCP Internal Medicine; Visit Provider Internal Medicine
DX: E11.69 Type 2 diabetes mellitus with other specified complication (principal); E66.9 Obesity, unspecified; E66.01 Morbid (severe) obesity due to excess calories; Z68.38 Body mass index [BMI] 38.0-38.9, adult; F41.1 Generalized anxiety disorder; M54.16 Radiculopathy, lumbar region
CPT/HCPCS: 99214; G2211

== ENCOUNTER 2023-08-30 14:07 | Outpatient (AMB) | payer OTHER, SELFPAY ==
--- NOTE | 2023-08-30 14:38 | A.SPINEOV_ITS ---
Intake Visit Reasons: Discuss worsening symptoms/ooss. surge Intake Note: Ms. Zamora is here today to discuss surgical options. 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 Allergies cefazolin [CEFAZOLIN] Allergy (Mild, Verified 08/23/23 08:11) LOCALIZED ITCHING AT INJECTION SITE shellfish derived Allergy (Mild, Verified 08/23/23 08:11) Itching cephalexin [CEPHALEXIN] Allergy (Unknown, Verified 08/23/23 08:11) UNKNOWN, ITCHING metronidazole [Flagyl] Allergy (Unknown, Verified 08/23/23 08:11) Unknown Assessment & Plan Assessment & Plan (1) Lumbar disc herniation with radiculopathy: Code(s): M51.16 - Intervertebral disc disorders with radiculopathy, lumbar region Category: Medical Plan Dear colleague, On 08/30/2023 I saw for a revisit Albert Zamora for severe increase in left lumbar radiculopathy. She has been dealing with bilateral lumbar radiculopathy for more than a year. The right side disappeared with an injection but the left side persisted. She tried physical therapy chiropractic therapy all without success. Now she is in intractable pain. The pain increases with coughing sneezing and bowel movements. She developed a drop foot on the left side and has numbness. A repeat MRI scan of the lumbar spine shows a large extruded disc herniation compressing the thecal sac as well as the left L5 nerve root. On exam, I see a pleasant patient in severe pain that limps. On testing of the individual muscles she has a grade 3/5 weakness of the EHL and foot extensors. There is hypoesthesia of the L5 dermatome. Straight leg raise is positive at 10 degrees. In summary, this patient is suffering from a L5 radiculopathy with progressive neurological deficits and intractable pain. She previously tried all conservative measurements and current pain management in the form of tramadol and anti-inflammatory drugs have no affect. I scheduled her for a urgent lumbar microdiskectomy L4-5, left-sided approach on 09/06/2023. I discussed the procedure and expected postoperative course. Thank you for the referral. Lennox Oneill MD, PhD Spine Fellowship Trained Neurosurgeon Director, [facility] Coding Level of Care Code Est Pt Level 3 (85573) Diagnoses Lumbar disc herniation with radiculopathy M51.16
== END 2023-08-30 15:16 | disposition home or self-care (01) ==
PROVIDERS: PCP Internal Medicine; Visit Provider Neurological Surgery
DX: M51.16 Intervertebral disc disorders with radiculopathy, lumbar region (principal)
CPT/HCPCS: 99213

== ENCOUNTER → 2023-08-30 14:07 | Outpatient (BNVA) | payer OTHER, SELFPAY | PROVIDERS: PCP Internal Medicine; Visit Provider Neurological Surgery | DX: M51.16 Intervertebral disc disorders with radiculopathy, lumbar region (principal) | CPT/HCPCS: 99212 ==

== ENCOUNTER → 2023-09-04 10:51 | Outpatient (BNV) | payer OTHER, SELFPAY | PROVIDERS: PCP Internal Medicine; Visit Provider Internal Medicine Cardiovascular Disease | DX: Z01.818 Encounter for other preprocedural examination (principal) | CPT/HCPCS: 93010 ==

== ENCOUNTER 2023-09-05 08:33 | Day surgery (SDC) | payer OTHER, SELFPAY ==
--- NOTE | 2023-09-04 | ECG_ITS ---
Test Reason : pre op Blood Pressure : / mmHG Vent. Rate : 062 BPM Atrial Rate : 062 BPM P-R Int : 150 ms QRS Dur : 078 ms QT Int : 410 ms P-R-T Axes : -01 -02 018 degrees QTc Int : 416 ms Normal sinus rhythm Minimal voltage criteria for LVH, may be normal variant ( R in aVL ) Borderline ECG When compared with ECG of 01-JUN-2022 22:30, No significant change was found Referred By: Maye Alford Electronically Signed By:JOVAN SEE MD
--- NOTE | 2023-09-04 09:09 | HO.ANESPROP2 ---
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 A1C = 6.3 in 07/2023 GERD: prn ppi PAD vs spine pain Minimal pedal swelling. Unclear etiology. Previously on 5 day course of lasix with minimal effect. PMFSH Active Problems Active Problems: All Active Problems Lumbar disc herniation with radiculopathy (Acute) Lumbar radiculopathy (Acute) Hot flashes (Acute) EIN (endometrial intraepithelial neoplasia) (Acute) Abnormal uterine bleeding (AUB) (Acute) Dysfunctional uterine bleeding (Acute) Breast lump on right side at 11 o'clock position (Acute) Stress at home (Acute) Encounter for general adult medical examination with abnormal findings (Acute) Leg pain (Acute) Varicose veins of both legs with edema (Acute) Diabetes mellitus (Acute) Swelling of lower extremity (Acute) Right lumbar radiculitis (Acute) Pre-employment examination (Acute) Low back pain (Acute) Fatty liver (Acute) Hospital discharge follow-up (Acute) Headache, migraine (Acute) Morbid obesity due to excess calories (Acute) Uncontrolled diabetes mellitus (Acute) Folliculitis (Acute) Abscess (Acute) Diabetes mellitus type 2 in obese (Acute) Recurrent boils (Acute) Past Medical History Medical History GERD (gastroesophageal reflux disease) Renal calculi Acute nephritic syndrome, minor glomerular abnormality Fatty liver Back pain Diabetes mellitus type 2 in obese Anxiety, generalized Major depression, recurrent PAD (peripheral artery disease) Recurrent boils Family History Family history of problems with anesthesia: No Surgical History Surgical History History of esophagogastroduodenoscopy (EGD) H/O colonoscopy History of carpal tunnel surgery of right wrist Hx of cholecystectomy Hx of cystoscopy History of dilatation and curettage S/P MARYA (total abdominal hysterectomy) History of Problems with Anesthesia: No Social History Social History Housing: House Are you a primary manager intensive care to a significant other at home: No Do you presently have visiting nurse or other home services: No Alcohol intake: never Comment: counts correct Patient Tobacco Use Status: Never used Tobacco e-Cigarette/Vaping Use: Never Used Second Hand Smoke Exposure: Yes (as a child) Current occupational status: employed Cognitive needs: No Hearing needs: No Vision needs: No Meds Allergies Allergy/AdvReac Type Severity Reaction Status Date / Time shellfish derived Allergy Severe Anaphylaxis Verified 09/05/23 09:29 cefazolin [CEFAZOLIN] Allergy Intermediate LOCALIZED Verified 09/05/23 09:29 ITCHING AT INJECTION SITE cephalexin [CEPHALEXIN] Allergy Intermediate Itching Verified 09/05/23 09:29 metronidazole [Flagyl] Allergy Intermediate Hives/itchi Verified 09/05/23 09:29 ng Home Medications ?Medication ?Instructions ?Recorded ?Confirmed ?Last Taken ?Type tramadol 50 mg tablet 50 mg PO BID PRN Pain 01/01/23 09/04/23 09/05/23 02:00 History glipizide 10 mg tablet 10 mg PO QPM 09/04/23 09/04/23 Unknown History omeprazole magnesium 20 mg 20 mg PO DAILY PRN Acid Reflux 09/04/23 09/04/23 Unknown History tablet,delayed release (Prilosec OTC) pioglitazone 30 mg tablet (Actos) 30 mg PO BEDTIME 09/04/23 09/04/23 Unknown History Exam Pertinent Lab Results Pertinent Lab Results: Laboratory Tests 08/14/23 08:56 WBC 6.0 Hgb 12.5 Hct 37.6 Plt Count 254 Sodium 139 Potassium 4.3 Chloride 106 Carbon Dioxide 26 BUN 17 H Creatinine 0.76 Narrative Narrative: EKG 2022 Vent. Rate : 089 BPM Atrial Rate : 089 BPM P-R Int : 138 ms QRS Dur : 078 ms QT Int : 374 ms P-R-T Axes : -07 -02 007 degrees QTc Int : 455 ms Normal sinus rhythm Minimal voltage criteria for LVH, may be normal variant ( R in aVL ) Borderline ECG When compared with ECG of 17-OCT-2021 09:58, No significant change was found Airway Mallampati Class: III TM Dist: >3cm Neck ROM: Full Loose/Missing/Broken Teeth: No (Lower front crown) Heart: RRR Lungs: CTAB Assessment and Plan Assessment Anesthesia Assessment: Anesthesia Plan Discussed and PAT Visit Final Anesthetic Review Family History of Problems with Anesthesia: No History of Problems with Anesthesia: No
[2023-09-04 10:01] VITALS: BMI 38.9
[2023-09-04 10:04] VITALS: BP 121/74; PULSE 69; RESP 18; O2SAT 97
[2023-09-05] VITALS (7 sets, daily range): BP systolic 122–151; BP diastolic 75–95; PULSE 64–99; RESP 16; TEMP 36.1; O2SAT 96–100; BMI 38.1
--- NOTE | ~2023-09-05 | FL_ITS ---
EXAMINATION: XR FLUOROSCOPY WITH IMAGES CLINICAL INFORMATION: L4-L5 discectomy. COMPARISON: None available. TECHNIQUE: Fluoroscopy Supervised By: Dr. Oneill. Fluoroscopy Time: 0.02 sec. Cumulative Dose: 1.337 mGy. DAP: 0.5440 Gycm2. Images: 1. FINDINGS: Intraoperative fluoroscopy and spot films were performed during a procedure in the OR. Probe seen at the L4-L5 level. Please correlate with Dr. Oneill's report for complete details. FL/FL guidance in OR IMPRESSION: Intraoperative fluoroscopy and spot films were obtained. Please see Dr. Oneill's report for complete details.
--- NOTE | 2023-09-05 07:39 | PM.DS ---
DS: Providers Provider Date of Service: 09/05/23 Date of discharge: 09/05/23 Primary care physician: Naz Sandhu MD Admitting clinician: Lennox Oneill DS: Diagnosis Discharge Diagnosis (1) Lumbar disc herniation with radiculopathy: Status: Acute DS: Summary Time Attestation Discharge Coordination Time (in mins): 9 Quality: Safe Use of Opioids Does Pt have an Active Cancer Diagnosis on the Problem List?: No Quality: Stroke Does the patient have a stroke diagnosis?: No Physical Exam Vital Signs: Vital Signs: Last Vital Signs Pulse 69 09/04/23 10:04 Resp 18 09/04/23 10:04 BP 121/74 09/04/23 10:04 Pulse Ox 97 09/04/23 10:04 O2 Del Method Room Air 09/04/23 10:04 BMI result Body Mass Index 38.9 Discharge Plan Discharge Patient Disposition: Home, Self-Care Referrals: Naz Sandhu MD [Primary Care Provider] - 1 Week Discharge Medications: New oxycodone 5 mg tablet 5 mg PO Q6H PRN (Reason: severe pain (scale score 7-10)) Qty: 30 0RF Rx Instructions: Partial Fill upon patient request. Continued epinephrine [EpiPen] 0.3 mg/0.3 mL auto-injector 0.3 mg IM Q10M PRN (Reason: anaphylaxis) 90 Days Qty: 1 0RF (DME) lancets [FreeStyle Lancets] 28 gauge misc See Rx Instructions .ROUTE .MEDSUPPLY Qty: 100 0RF Rx Instructions: patient to check blood sugar daily as needed (DME) FreeStyle Lite Strips Strip See Rx Instructions .ROUTE .COMPLEX Qty: 100 0RF Dose Instruction: PATIENT TO CHECK BLOOD SUGAR DAILY Rx Instructions: PATIENT TO CHECK BLOOD SUGAR DAILY lidocaine 5 % adhesive patch,medicated 1 patch topical DAILY PRN (Reason: pain) Qty: 15 0RF Rx Instructions: leave on most painful area for up to 12 hrs glipizide 10 mg tablet 10 mg PO QPM pioglitazone [Actos] 30 mg tablet 30 mg PO BEDTIME omeprazole magnesium [Prilosec OTC] 20 mg Tablet,Delayed Release (Dr/Ec) 20 mg PO DAILY PRN (Reason: Acid Reflux) (DME) blood-glucose meter [FreeStyle Lite Meter] Kit See Rx Instructions .ROUTE .MEDSUPPLY Qty: 1 0RF Rx Instructions: patient to check blood sugar daily gabapentin 300 mg capsule 300 mg PO BID Qty: 60 0RF Rx Instructions: Take 1 cap at bedtime for 10 days. If well tolerated, increase to 1 tab twice daily Held tramadol 50 mg tablet 50 mg PO BID PRN (Reason: Pain) Hold Instructions: Resume on 09/05/23. until oxycodone complete Discharge Orders: Discharge Order (Routine); Ordered 09/05/23 Ordered By: Tyrone Herron Diet: Advance to usual diet Activity on Discharge: As tolerated Activity Restrictions/Additional Instructions: After your spinal surgery we ask you to observe the following restrictions/guidelines: Activity: It is normal to feel some discomfort as you increase your activity, but that will improve with time. We ask you avoid heavy lifting or acitivities that cause pain. As a general rule, 8lbs is a safe limit for lifting right after surgery. Walk as much as you feel comfortable but not to exhaustion. You will feel extra tired the first few days after surgery. Stay well hydrated. It is OK to walk up and down stairs You may return to driving when you are off narcotics (such as vicodin, oxycodone, dilaudid, etc), and you are back to normal functional capacity. If you have any concerns please check with office before driving. Return to work is specific to each patient and each surgery, so please speak with your doctor/PA at first follow up. Please bring paperwork such as FMLA at that time if you need it filled out. Medications: For optimum pain control, it is best to start with a combination of 500 mg of Tylenol every 4 hours with 600 mg of Motrin every 8 hours, and use narcotics as needed in between for breakthrough pain. We will give you a short supply of narcotics after surgery (usually one weeks worth). If you need more please call the office but do not use more than prescribed. You will need to give our office 48 hours notice if you need narcotics refilled and we do not fill narcotics on weekends or evenings. If you are on a narcotic, it is a good idea to take a stool softener such as colace or senna to avoid constipation If you take blood thinner such as aspirin, Plavix, Coumadin, Effient, Eliquis etc for conditions such as Afib, DVT, Pulmonary embolus, coronary disease, stents etc please speak with your surgeon about specific details as to when you can resume these medications. You can resume NSAIDs on post op day 1 (eg: Motrin, Naproxen, etc). Follow up: Please call the office, , after surgery to arrange a 3 week follow up for wound check. Wound Care: You may remove your dressing on the first day after surgery. ?You may ?leave open to air. Please do not remove the steri strips underneath. they will fall off on their own in one week. IT IS NORMAL FOR THE WOUND TO OOZE OR BE BLOODY FOR A FEW DAYS AFTER SURGERY. ?IF THIS HAPPENS JUST PLACE NEW DRESSING OVER IT TO AVOID STAINING CLOTHES. You may shower on post op day # 1 We ask that you do not let the water soak the wound. If it does get wet, just towel dry lightly. Please do not scrub your incision or place any type of chemical/ointment on the wound. No tub baths, pools or jacuzzis for one month. If you have any leaking or redness from your wound, or fevers, please call office Print Language: Salvadorean Discharge Date/Time: 09/05/23 14:53
[2023-09-05 09:12] LABS: Glucose, Whole Blood 64 mg/dL (60-115)
[2023-09-05] MEDS: Gabapentin 300 MG CAPSULE PO (09:19)
[2023-09-05] MEDS: methocarbamoL 750 MG TABLET PO (09:19)
[2023-09-05] MEDS: Lactated Ringers 1,000 ML 100 ML IVCONT (09:30)
[2023-09-05] MEDS: Dextrose 5 % 250 ML 999 ML IV (09:31)
--- NOTE | 2023-09-05 09:33 | PC.NURSE ---
unable to scan d5w, states not ordered. 250ml bolus per anesthesia
[2023-09-05] MEDS: vancomycin HCL 1,500 MG in 0.9 % Sodium Chloride 500 ML 333.33 MG IV (10:12)
--- NOTE | 2023-09-05 10:13 | MHC.SHP ---
Pre-Procedural Eval Section A - 24 Hr Update-Section A only Date of Service: 09/05/23 The patient is an INPATIENT: No The patient has been examined within 24 hours of the surgical procedure. The History & Physical has been completed within 30 days and I have reviewed it.: Yes Section B - Complete if H&P > 30 days Chief Complaint: Radiculopathy, lumbar region Details of Present Illness: Left lumbar radiculopathy Allergies: Allergies Allergy/AdvReac Type Severity Reaction Status Date / Time shellfish derived Allergy Severe Anaphylaxis Verified 09/05/23 09:29 cefazolin [CEFAZOLIN] Allergy Intermediate LOCALIZED Verified 09/05/23 09:29 ITCHING AT INJECTION SITE cephalexin [CEPHALEXIN] Allergy Intermediate Itching Verified 09/05/23 09:29 metronidazole [Flagyl] Allergy Intermediate Hives/itchi Verified 09/05/23 09:29 ng Review of Systems Sugical H&P ROS: Negative: Constitution, Cardiovascular, Respiratory, Psychiatric, Hem-Onc, Allergic/Immunologic, Gastrointestinal, Genitourinary, Musculoskeletal, Integumentary, Endocrine and Eyes/Ears/Nose/Throat and Yes, Specify: Neurological (Left lumbar radiculopathy) Exam Surgical H&P Exam: Normal: HEENT, Normal: Heart, Normal: Lungs, Normal: Extremities, Normal: Abdomen, Normal: Skin and Normal: Neurological (A awake, alert) Plan Left L4-5 microdiskectomy Time Spent With Patient Time: Total time managing care of this patient today __5__ minutes.
--- NOTE | 2023-09-05 10:31 | HO.ANESPROP2 ---
[facility] Active Problems Active Problems: All Active Problems Lumbar disc herniation with radiculopathy (Acute) Lumbar radiculopathy (Acute) Hot flashes (Acute) EIN (endometrial intraepithelial neoplasia) (Acute) Abnormal uterine bleeding (AUB) (Acute) Dysfunctional uterine bleeding (Acute) Breast lump on right side at 11 o'clock position (Acute) Stress at home (Acute) Encounter for general adult medical examination with abnormal findings (Acute) Leg pain (Acute) Varicose veins of both legs with edema (Acute) Diabetes mellitus (Acute) Swelling of lower extremity (Acute) Right lumbar radiculitis (Acute) Pre-employment examination (Acute) Low back pain (Acute) Fatty liver (Acute) Hospital discharge follow-up (Acute) Headache, migraine (Acute) Morbid obesity due to excess calories (Acute) Uncontrolled diabetes mellitus (Acute) Folliculitis (Acute) Abscess (Acute) Diabetes mellitus type 2 in obese (Acute) Recurrent boils (Acute) Past Medical History Medical History GERD (gastroesophageal reflux disease) Renal calculi Acute nephritic syndrome, minor glomerular abnormality Fatty liver Back pain Diabetes mellitus type 2 in obese Anxiety, generalized Major depression, recurrent PAD (peripheral artery disease) Recurrent boils Functional capacity: independent ambulation Patient : No Family History Family history of problems with anesthesia: No Surgical History Surgical History History of esophagogastroduodenoscopy (EGD) H/O colonoscopy History of carpal tunnel surgery of right wrist Hx of cholecystectomy Hx of cystoscopy History of dilatation and curettage S/P MARYA (total abdominal hysterectomy) History of Problems with Anesthesia: No Social History Social History Housing: House Are you a primary resident care manager rn to a significant other at home: No Do you presently have visiting nurse or other home services: No Alcohol intake: never Patient Tobacco Use Status: Never used Tobacco e-Cigarette/Vaping Use: Never Used Second Hand Smoke Exposure: Yes (as a child) Use of substances other than those prescribed or required for medical reasons: No Have you been hit, kicked, punched, or otherwise hurt by someone within the past year? If so, by whom?: No Are you DNR?: No Advance Directives Information Provided: Yes (as above noted) Advance Directives on File: No Recently lost weight without trying: No Eating poorly because of decreased appetite: No Nutrition Risks: No Nutritional Risk Patient : No Poor oral hygiene: No (lower front right crown) Current occupational status: employed Cognitive needs: No Hearing needs: No Vision needs: No Meds Allergies Allergy/AdvReac Type Severity Reaction Status Date / Time shellfish derived Allergy Severe Anaphylaxis Verified 09/05/23 09:29 cefazolin [CEFAZOLIN] Allergy Intermediate LOCALIZED Verified 09/05/23 09:29 ITCHING AT INJECTION SITE cephalexin [CEPHALEXIN] Allergy Intermediate Itching Verified 09/05/23 09:29 metronidazole [Flagyl] Allergy Intermediate Hives/itchi Verified 09/05/23 09:29 ng Active Medications: Current Medications Lactated Ringer's (Lr) 1,000 mls @ 100 mls/hr IVCONT .Q10H ROCK Last Admin: 09/05/23 09:30 Dose: 100 mls/hr Dextrose (D5w) 250 mls @ 0 mls/hr IV .Q0M PRN PRN Reason: Per Protocol Last Admin: 09/05/23 09:31 Dose: 999 mls/hr Home Medications ?Medication ?Instructions ?Recorded ?Confirmed ?Last Taken ?Type tramadol 50 mg tablet 50 mg PO BID PRN Pain 01/01/23 09/04/23 09/05/23 02:00 History glipizide 10 mg tablet 10 mg PO QPM 09/04/23 09/04/23 Unknown History omeprazole magnesium 20 mg 20 mg PO DAILY PRN Acid Reflux 09/04/23 09/04/23 Unknown History tablet,delayed release (Prilosec OTC) pioglitazone 30 mg tablet (Actos) 30 mg PO BEDTIME 09/04/23 09/04/23 Unknown History Exam Height,Weight and Vital Signs: Height 5 ft 5 in Weight 103.873 kg Last Vital Signs Temp 96.9 F 09/05/23 09:12 Pulse 64 09/05/23 09:12 Resp 16 09/05/23 09:12 BP 122/75 09/05/23 09:12 Pulse Ox 98 09/05/23 09:12 O2 Del Method Room Air 09/05/23 09:12 Pertinent Lab Results Pertinent Lab Results: Laboratory Tests 09/05/23 09:09 POC Glucose 64 Airway Mallampati Class: III TM Dist: >3cm Neck ROM: Full Heart: RRR Lungs: CTA Assessment and Plan Assessment Anesthesia Assessment: Anesthesia Plan Discussed Final Anesthetic Review Family History of Problems with Anesthesia: No History of Problems with Anesthesia: No NPO: Yes ASA Class: III Final Preanesthetic Review: Meds/Allgs Chart Reviewed, Consent Obtained/Reviewed and Anes Risks/Benef Reviewed Patient Risk: Intermediate Procedure Risk: Low Anesthetic Plan Anesthetic Plan: GA Disposition: Standard PACU
[2023-09-05 11:35] LABS: Glucose, Whole Blood 68 mg/dL (60-115)
--- NOTE | 2023-09-05 11:49 | PC.NURSE ---
bs 67 per primary rn patient received 100ml additional d5wper anesthesia bs now 76 anesthesia at bedside pt okay to proceed with surgery denies any symptoms low bs pt aware careplan
[2023-09-05 11:51] LABS: Glucose, Whole Blood 78 mg/dL (60-115)
--- NOTE | 2023-09-05 12:52 | W.PM.OPN ---
Operative Note Operative Note Date of Service: 09/05/23 Narrative: Preoperative diagnosis: Left L5 radiculopathy due to disc herniation Postoperative diagnosis: Same Procedure: Left L4-5lumbar microdiskectomy with microscope Surgeon: Lennox Oneill MD, PhD Drilling Rig Operator: viktor Liang This 43-year-old female presented with an increase in a left lumbar radiculopathy. A repeat MRI shows a large extruded disc herniation compressing the left L5 nerve root. The patient was offered a lumbar microdiskectomy to decompress the nerve root. The procedure complications were explained. The patient was consented. The patient was brought to the operating room and endotracheally intubated. The patient was turned in a prone position on the Roby frame. Prepping and draping was done followed by time-out. A mid lumbar incision was made followed by release of the paravertebral muscles on the left side to expose the L4-5 interspace. An intraoperative x-rays obtained to confirm the correct level. The microscope was brought in. A L4 laminotomy was done followed by opening of the flavum ligament. The L5 nerve root was identified and retracted medially to expose the L4-5 disc space. I could palpate a disc herniation medial from the L5 nerve root, which I carefully removed with a pituitary. The disc space was inspected and any residual disc fragments were removed. This resulted in an excellent decompression of the L5 nerve root. Hemostasis was done. The microscope was removed. Marcaine was injected intramuscularly.The incision was closed in two layers. Steri-Strips used to approximate seizure. An op-site were taken there was used to cover the incision. All sponge and needle counts were correct. Patient was extubated and transported in stable condition to recovery room. this procedure was done with the aid of a physician pediatric physician assistant who performed the initial exposure until the microscope was brought in and performed the closure of the incision. Anesthesia: General Blood loss: 10 mL Complications: None Specimen: None Surgical time: 40 minutes Disposition: Discharge home
--- NOTE | 2023-09-05 13:09 | PM.DS ---
DS: Providers Provider Date of Service: 09/05/23 Primary care physician: Naz Sandhu MD DS: Diagnosis Discharge Diagnosis (1) Lumbar disc herniation with radiculopathy: Status: Acute DS: Summary Time Attestation Discharge Coordination Time (in mins): 15 Quality: Safe Use of Opioids Does Pt have an Active Cancer Diagnosis on the Problem List?: No Quality: Stroke Does the patient have a stroke diagnosis?: No Physical Exam Vital Signs: Vital Signs: Last Vital Signs Temp 96.9 F 09/05/23 09:12 Pulse 64 09/05/23 09:12 Resp 16 09/05/23 09:12 BP 122/75 09/05/23 09:12 Pulse Ox 98 09/05/23 09:12 O2 Del Method Room Air 09/05/23 09:12 BMI result Body Mass Index 38.1 DS: Data Data Completed and Pending Labs on day of discharge: Laboratory Results - last 24 hr 09/05/23 09/05/23 09/05/23 09:09 11:31 11:47 POC Glucose 64 68 78 Discharge Plan Discharge Patient Disposition: Home, Self-Care Referrals: Naz Sandhu MD [Primary Care Provider] - 1 Week Discharge Medications: New oxycodone 5 mg tablet 5 mg PO Q6H PRN (Reason: severe pain (scale score 7-10)) Qty: 30 0RF Rx Instructions: Partial Fill upon patient request. Continued epinephrine [EpiPen] 0.3 mg/0.3 mL auto-injector 0.3 mg IM Q10M PRN (Reason: anaphylaxis) 90 Days Qty: 1 0RF (DME) lancets [FreeStyle Lancets] 28 gauge misc See Rx Instructions .ROUTE .MEDSUPPLY Qty: 100 0RF Rx Instructions: patient to check blood sugar daily as needed (DME) FreeStyle Lite Strips Strip See Rx Instructions .ROUTE .COMPLEX Qty: 100 0RF Dose Instruction: PATIENT TO CHECK BLOOD SUGAR DAILY Rx Instructions: PATIENT TO CHECK BLOOD SUGAR DAILY lidocaine 5 % adhesive patch,medicated 1 patch topical DAILY PRN (Reason: pain) Qty: 15 0RF Rx Instructions: leave on most painful area for up to 12 hrs glipizide 10 mg tablet 10 mg PO QPM pioglitazone [Actos] 30 mg tablet 30 mg PO BEDTIME omeprazole magnesium [Prilosec OTC] 20 mg Tablet,Delayed Release (Dr/Ec) 20 mg PO DAILY PRN (Reason: Acid Reflux) (DME) blood-glucose meter [FreeStyle Lite Meter] Kit See Rx Instructions .ROUTE .MEDSUPPLY Qty: 1 0RF Rx Instructions: patient to check blood sugar daily gabapentin 300 mg capsule 300 mg PO BID Qty: 60 0RF Rx Instructions: Take 1 cap at bedtime for 10 days. If well tolerated, increase to 1 tab twice daily Held tramadol 50 mg tablet 50 mg PO BID PRN (Reason: Pain) Hold Instructions: Resume on 09/05/23. until oxycodone complete Discharge Orders: Discharge Order (Routine); Ordered 09/05/23 Ordered By: Tyrone Herron Diet: Advance to usual diet Activity on Discharge: As tolerated Activity Restrictions/Additional Instructions: After your spinal surgery we ask you to observe the following restrictions/guidelines: Activity: It is normal to feel some discomfort as you increase your activity, but that will improve with time. We ask you avoid heavy lifting or acitivities that cause pain. As a general rule, 8lbs is a safe limit for lifting right after surgery. Walk as much as you feel comfortable but not to exhaustion. You will feel extra tired the first few days after surgery. Stay well hydrated. It is OK to walk up and down stairs You may return to driving when you are off narcotics (such as vicodin, oxycodone, dilaudid, etc), and you are back to normal functional capacity. If you have any concerns please check with office before driving. Return to work is specific to each patient and each surgery, so please speak with your doctor/PA at first follow up. Please bring paperwork such as FMLA at that time if you need it filled out. Medications: For optimum pain control, it is best to start with a combination of 500 mg of Tylenol every 4 hours with 600 mg of Motrin every 8 hours, and use narcotics as needed in between for breakthrough pain. We will give you a short supply of narcotics after surgery (usually one weeks worth). If you need more please call the office but do not use more than prescribed. You will need to give our office 48 hours notice if you need narcotics refilled and we do not fill narcotics on weekends or evenings. If you are on a narcotic, it is a good idea to take a stool softener such as colace or senna to avoid constipation If you take blood thinner such as aspirin, Plavix, Coumadin, Effient, Eliquis etc for conditions such as Afib, DVT, Pulmonary embolus, coronary disease, stents etc please speak with your surgeon about specific details as to when you can resume these medications. You can resume NSAIDs on post op day 1 (eg: Motrin, Naproxen, etc). Follow up: Please call the office, , after surgery to arrange a 3 week follow up for wound check. Wound Care: You may remove your dressing on the first day after surgery. ?You may ?leave open to air. Please do not remove the steri strips underneath. they will fall off on their own in one week. IT IS NORMAL FOR THE WOUND TO OOZE OR BE BLOODY FOR A FEW DAYS AFTER SURGERY. ?IF THIS HAPPENS JUST PLACE NEW DRESSING OVER IT TO AVOID STAINING CLOTHES. You may shower on post op day # 1 We ask that you do not let the water soak the wound. If it does get wet, just towel dry lightly. Please do not scrub your incision or place any type of chemical/ointment on the wound. No tub baths, pools or jacuzzis for one month. If you have any leaking or redness from your wound, or fevers, please call office Print Language: Bengali
--- NOTE | 2023-09-05 15:50 | HO.POSTANES ---
Post Anesthesia Evaluation Post Anesthesia Evaluation Date of Service: 09/05/23 Vital Signs: Vital Signs Temp Pulse Resp BP Pulse Ox O2 Del Method 09/05/23 14:08 72 16 151/95 H 100 Room Air 09/05/23 13:53 71 16 139/77 96 Room Air 09/05/23 13:38 78 16 144/79 H 100 Room Air 09/05/23 13:33 76 16 127/85 96 Room Air 09/05/23 13:28 86 16 122/86 98 Room Air 09/05/23 13:23 97 F 99 16 122/86 100 Room Air 09/05/23 09:12 96.9 F 64 16 122/75 98 Room Air Anesthesia: General Endotracheal-GETA Mental Status: Awake Pain Control: Satisfactory Nausea/Vomiting: None Hydration: Adequate Anesthesia-Related Issues: No Anes. Related Issues
== END 2023-09-05 14:53 | disposition home or self-care (01) ==
LOC: HO.SSS 08:33
PROVIDERS: PCP Internal Medicine; Visit Provider Neurological Surgery
PROC: (CPT 63030; principal; 2023-09-05 12:40)
DX: M51.16 Intervertebral disc disorders with radiculopathy, lumbar region (principal); M21.372 Foot drop, left foot; R20.0 Anesthesia of skin; E11.9 Type 2 diabetes mellitus without complications; Z79.84 Long term (current) use of oral hypoglycemic drugs; Z79.899 Other long term (current) drug therapy; Z88.1 Allergy status to other antibiotic agents; Z88.8 Allergy status to other drugs, medicaments and biological substances
CPT/HCPCS: 63030; 82947; 93005; J0131; J1100; J1596; J1885; J2250; J2405; J2704; J3010; J3371

== ENCOUNTER → 2023-09-05 08:33 | Outpatient (BNV) | payer OTHER, SELFPAY | PROVIDERS: PCP Internal Medicine; Visit Provider Neurological Surgery | DX: M51.16 Intervertebral disc disorders with radiculopathy, lumbar region (principal) | CPT/HCPCS: 63030; 99499 ==

== ENCOUNTER 2023-09-30 09:51 | Outpatient (AMB) | payer OTHER, SELFPAY ==
--- NOTE | 2023-09-30 09:57 | HO.SPINEOV ---
Intake Visit Reasons: 1st post op Intake Note: Ms. Zamora is here today for her 1st post-op visit. Strategic Planning Specialist Required: No Allergies shellfish derived Allergy (Severe, Verified 09/30/23 09:57) Anaphylaxis cefazolin [CEFAZOLIN] Allergy (Intermediate, Verified 09/30/23 09:57) LOCALIZED ITCHING AT INJECTION SITE cephalexin [CEPHALEXIN] Allergy (Intermediate, Verified 09/30/23 09:57) Itching metronidazole [Flagyl] Allergy (Intermediate, Verified 09/30/23 09:57) Hives/itching Assessment & Plan Assessment & Plan (1) S/P lumbar microdiscectomy: Code(s): Z98.890 - Other specified postprocedural states Category: Surgical Plan Procedure: Left L4-5 lumbar microdiskectomy Albert comes in today for her 1st postoperative visit. She reports she is very satisfied with the surgery and feels much better than she did pre-operatively. She reports she has not had to use any OTC or narcotic pain medications since the first few days post-op. The patient reports she is up walking around and completing the majority of her ADLs. She reports that she no longer suffers from her left-sided shooting radiculopathy. No new neurological deficits. Patient is able to ambulate well, rises from a seated position without difficulty. Incision site is closed, well healing, with no signs of drainage. We will follow-up with the patient in 6 weeks for their 2nd postoperative visit. Tyrone Oneill MD,PhD [facility] Coding Level of Care Code Global (87876) Diagnoses S/P lumbar microdiscectomy Z98.890
== END 2023-09-30 10:19 | disposition home or self-care (01) ==
PROVIDERS: PCP Internal Medicine; Visit Provider Physician Assistant
DX: Z98.890 Other specified postprocedural states (principal)
CPT/HCPCS: 99024

== ENCOUNTER → 2023-09-30 09:51 | Outpatient (BNVA) | payer OTHER, SELFPAY | PROVIDERS: PCP Internal Medicine; Visit Provider Physician Assistant | DX: Z48.89 Encounter for other specified surgical aftercare (principal); Z98.890 Other specified postprocedural states | CPT/HCPCS: 99212 ==

== ENCOUNTER 2023-10-17 08:51 | Outpatient (AMB) | payer OTHER, SELFPAY ==
--- NOTE | 2023-10-17 08:52 | A.SPINEOV_ITS ---
Intake Visit Reasons: 2nd post op Intake Note: Ms. Zamora is here today for her 2nd post-op visit. 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: No Allergies shellfish derived Allergy (Severe, Verified 09/30/23 09:57) Anaphylaxis cefazolin [CEFAZOLIN] Allergy (Intermediate, Verified 09/30/23 09:57) LOCALIZED ITCHING AT INJECTION SITE cephalexin [CEPHALEXIN] Allergy (Intermediate, Verified 09/30/23 09:57) Itching metronidazole [Flagyl] Allergy (Intermediate, Verified 09/30/23 09:57) Hives/itching Assessment & Plan Assessment & Plan (1) S/P lumbar microdiscectomy: Code(s): Z98.890 - Other specified postprocedural states Category: Surgical Plan Albert comes in today for a 2nd postoperative visit after having a microdiskectomy completed by our service 2 and half months ago. To recap since the surgery she had done very well, and was feeling much better. She continues to report this. She states that she has been doing very well since the surgery and is very satisfied overall with her experience. She has no pain shooting into either leg, and her back feels much better. She inquired about returning to work during this visit today, so I completed a letter for her and discuss some restrictions. No new neurological deficits. The patient is able to ambulate well and rises from a seated position without difficulty. Her posterior incision site is closed, well healed, with no signs of drainage. Albert was informed of the risks of reherniation regarding disc herniation repair. She understands that she should refrain from any excessive lifting, twisting, bending for the foreseeable future as this scars over and continues to heal. 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 Tyrone Oneill MD,PhD [facility] Coding Level of Care Code Global (15518) Diagnoses S/P lumbar microdiscectomy Z98.890
== END 2023-10-17 09:25 | disposition home or self-care (01) ==
PROVIDERS: PCP Internal Medicine; Visit Provider Physician Assistant
DX: Z98.890 Other specified postprocedural states (principal)
CPT/HCPCS: 99024

== ENCOUNTER → 2023-10-17 08:51 | Outpatient (BNVA) | payer OTHER, SELFPAY | PROVIDERS: PCP Internal Medicine; Visit Provider Physician Assistant | DX: Z48.89 Encounter for other specified surgical aftercare (principal); Z98.890 Other specified postprocedural states | CPT/HCPCS: 99212 ==

== ENCOUNTER 2023-12-23 11:20 | Outpatient (AMB) | payer OTHER, SELFPAY ==
--- NOTE | 2023-12-23 11:29 | HO.SPINEOV ---
Intake Visit Reasons: re-evaluation Intake Note: Mrs. Zamora is here for a re-evaluation. 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 She has about 4 months out from microdiskectomy surgery. She needed a repeat evaluation to return to work without restrictions. Given that she is reporting no symptoms or radiculopathy at this time and is beyond the window of likely/potential recurrence of disc herniation, I do not believe she needs any restrictions returning to work. I provided her with a letter to reflect that. Tyrone Oneill MD,PhD [facility] Coding Level of Care Code Est Pt Level 1 (97637) Diagnoses S/P lumbar microdiscectomy Z98.890 Time Spent (min) 10
== END 2023-12-23 11:47 | disposition home or self-care (01) ==
LOC: HO.HNS 11:21
PROVIDERS: PCP Internal Medicine; Visit Provider Physician Assistant
DX: Z98.890 Other specified postprocedural states (principal)

== ENCOUNTER → 2023-12-23 11:20 | Outpatient (BNVA) | payer OTHER, SELFPAY | PROVIDERS: PCP Internal Medicine; Visit Provider Physician Assistant | DX: Z98.890 Other specified postprocedural states (principal) | CPT/HCPCS: 99211 ==

== ENCOUNTER → 2024-03-27 14:15 | Outpatient (BNVA) | payer OTHER, SELFPAY | PROVIDERS: PCP Internal Medicine; Visit Provider Internal Medicine | DX: R50.9 Fever, unspecified (principal); M79.10 Myalgia, unspecified site; E11.69 Type 2 diabetes mellitus with other specified complication; E66.9 Obesity, unspecified; E66.01 Morbid (severe) obesity due to excess calories; Z68.37 Body mass index [BMI] 37.0-37.9, adult; Z20.828 Contact with and (suspected) exposure to other viral communicable diseases; Z71.3 Dietary counseling and surveillance | CPT/HCPCS: 96127; 99212 ==

== ENCOUNTER 2024-04-10 07:51 | Outpatient (REF) | payer OTHER, SELFPAY ==
--- OUTSIDE RECORDS SUMMARY | 2024-04-10 07:54 | XMS_ITS | Clinical Summary ---
Author Organization [facility] Address [address] [place] [address] Care Team Providers Care Automobile Technician Name Role Phone Naz Sandhu MD Primary Care Provider [phone] Surgical History Surgery Date Site/Laterality Comments CHOLECYSTECTOMY 10/29/2002 PROCEDURE: HISTORICAL CHOLECYSTECTOMY; COMMENT: For gallstones TUBAL LIGATION 05/01/2004 PROCEDURE: HISTORICAL TUBAL LIGATION OVARIAN CYST REMOVAL 2013 Right PROCEDURE: TX OVARIAN CYSTECTOMY UNI/BI BREAST REDUCTION 2009 Bilateral PROCEDURE: TX BREAST REDUCTION LITHOTRIPSY 2012 Right PROCEDURE: HISTORICAL LITHOTRIPSY; COMMENT: kidney stone OTHER SURGICAL HISTORY PROCEDURE: HISTORICAL D&C; COMMENT: polyp UPPER GASTROINTESTINAL ENDOSCOPY 03/09/2015 PROCEDURE: TX UPPER GI ENDOSCOPY PERFORMED; COMMENT: diffuse gastric erythema with retained bile; H. pylori positive UPPER GASTROINTESTINAL ENDOSCOPY 02/01/2009 PROCEDURE: TX UPPER GI ENDOSCOPY PERFORMED; COMMENT: Normal esophagus, Mild gastritis-biopsy:gastritis (Hpylori+), Normal duodenum-biopsy: nl COLONOSCOPY 07/17/2017 PROCEDURE: HISTORICAL COLONOSCOPY; COMMENT: Visually normal, random biopsies: normal. Medical History Medical History Date Comments History of MRSA infection 08/15/2014 DX:His tory of MRSA infection; COMMENT: Shoulder abscess 08/01 Allergic rhinitis 08/15/2014 DX:Allergic rh initis History of kidney stones 08/15/2014 DX:Hist ory of kidney stones History of Helicobacter pylo ri infection 01/2009 DX:History of Helicobacter p ylori infection; COMMENT: TX with PrevPac Fatty liver 12/29/2014 DX:Fatty liver Migraine 06/29/2014 DX:Migraine Back pain 06/29/2014 DX:Back pain GERD (gastroesophageal reflu x disease) 01/17/2009 DX:GERD (gastroesophageal re flux disease) Uncontrolled type 2 diabetes mellitus 06/29/2014 DX:Uncontrolled type 2 diabetes mellitus DM type 2, uncontrolled, wit h neuropathy 09/20/2016 DX:DM type 2, uncontrolled, with neuropathy Family History Medical History Relation Name Comments Heart attack Father (ESRD, diabetes) Diabetes Mother Diabetes Sister 1 Diabetes Sister 2 Blindness Neg Hx Breast cancer Neg Hx Cataracts Neg Hx Colon cancer Neg Hx Glaucoma Neg Hx Macular degeneration Neg Hx Ovarian cancer Neg Hx Strabismus Neg Hx Uterine cancer Neg Hx Relation Name Status Comments Brother 1 Alive healthy Brother 2 Alive healthy Brother 3 accident; quadr iplegic Daughter Alive 2002; Joi; marshal althy Father (Age 62) Maternal Grandfather Maternal Grandmother Mother Alive diabetes Paternal Grandfather Paternal Grandmother Sister 1 Sister 2 Sister 3 Alive dm Sister 4 Alive dm Son Alive 2004; Miko; omar chapman Social History Tobacco Use Types Packs/Day Years Used Date Smoking Tobacco: Former Cigarettes Q uit: 06/29/2009 Smokeless Tobacco: Never Alcohol Use Standard Drinks/Week Comments No 0 (1 standard drink = 0.6 oz pur e alcohol) Comments Unknown Sex and Gender Information Value Date Recorded Sex Assigned at Not on file Legal Sex Female 12:24 AM EST Gender Identity Not on file Sexual Orientation Not on file Obstetrics History Plan of Treatment Health Maintenance Due Date Last Done Comments Breast Cancer Screening 1982 Diabetes: Annual GFR (Glomerular Filtration Rate) 1982 Diabetes: Annual Foot Exam 1992 Diabetes: Annual Retina Eye Exam 1992 Hepatitis B Vaccines (1 of 3 - 19+ 3-dose series) 2001 Cervical Cancer Screening: Pap Smear 08/02/2003 Hepatitis A Vaccines (2 of 2 - Risk 2-dose series) 07/17/2009 01/17/2009 Cholesterol Screening (Lipid Panel) 01/21/2022 Depression Screening 01/21/2022 HIV Screening 01/21/2022 Hepatitis C Screening 01/21/2022 Social Influencers of Health Screening 01/21/2022 Diabetes: Annual Urine Albumin-Creatinine Ratio (uACR) 01/25/2022 Diabetes: Blood Sugar Control Test (HGBA1C) 01/25/2022 COVID-19 Vaccine ( season) 2023 Influenza Vaccine (#1) 2023 , 12/03/2018, 12/04/2017, Additional history exists DTaP,Tdap,and Td Vaccines (3 - Td or Tdap) 01/23/2026 01/24/2016, 03/19/2007 Pneumococcal Vaccine: Pediatrics (0 to 5 Years) and At-Risk Patients (6 to 64 Years) Aged Out 05/20/2015 No longer eligible based on patient's age to complete this topic HIB Vaccines Aged Out No longer eligi ble based on patient's age to complete this topic HPV Vaccines Aged Out No longer eligi ble based on patient's age to complete this topic IPV Vaccines Aged Out No longer eligi ble based on patient's age to complete this topic MMR Vaccines Aged Out No longer eligi ble based on patient's age to complete this topic Meningococcal ACWY Vaccine Aged Out N o longer eligible based on patient's age to complete this topic Meningococcal B Vacine Aged Out No lo nger eligible based on patient's age to complete this topic RSV Immunization Patients Under 20 months Aged Out No longer eligible based on patient's age to complete this topic Varicella Vaccines Aged Out No longer eligible based on patient's age to complete this topic Care Teams Automobile Technician Relationship Specialty Start Date End Date Naz Sandhu MD [address] [place] [address] PCP - General Internal Medicine 11/06/18
[2024-04-10 08:00] LABS: MANUAL DIFF FLAG NO
[2024-04-10 08:28] LABS: Basophils Percent Auto 0.3 % (0-2); Eosinophils Absolute Auto 0.1 X10*3/uL (0.0-0.4); Hematocrit 37.2 % (37.0-47.0); Hemoglobin 12.5 g/dl (12.0-16.0); Imm Gran Abs Auto 0.01 X10*3/uL (0.00-0.03); Imm Gran Pct Auto 0.2 % (0.0-0.4); Lymphocytes Absolute Auto 2.1 X10*3/uL (1.2-4.9); Lymphocytes Percent Auto 32.3 % (20-40); Mean Corpuscular HGB Conc 33.6 g/dl (31.0-35.0); Mean Corpuscular Hemoglobin 27.2 pg (27.0-33.0); Mean Corpuscular Volume 80.9 fL (80.0-98.0); Mean Platelet Volume 9.3 fL (9.4-12.3); Monocytes Absolute Auto 0.5 X10*3/uL (0.1-1.2); Monocytes Percent Auto 7.2 % (2-11); Neutrophils Absolute Auto 3.7 x10*3/uL (2.0-8.3); Platelet Count 298 X10*3/uL (160-400); Red Cell Distribution Width 12.5 % (11.0-16.0); White Blood Count 6.4 X10*3/uL (4.8-10.8)
[2024-04-10 08:35] LABS: Estimated Average Glucose 192 mg/dL; Hemoglobin A1C 219.6312 umol/L; Hemoglobin A1c % 8.3 % (<6.0); Total Hemoglobin (HGBA1C) 3281.8652 umol/L
[2024-04-10 08:55] LABS: Microalbum/Creatinine Ratio Ur 42.3 ug/mg cr (<30)
[2024-04-10 09:04] LABS: Alanine Aminotransferase 65 U/L (0-31); Albumin Level 4.2 g/dL (3.5-5.0); Anion Gap 13 (12-20); Aspartate Amino Transferase 51 U/L (5-31); Blood Urea Nitrogen 11 mg/dL (9-16); Calcium 10.2 mg/dL (8.4-10.2); Carbon Dioxide 27 mmol/L (22-29); Chloride 102 mmol/L (96-108); Cholesterol 169 mg/dL (<200); Estimated Glomerular Filt Rate > 60; Glucose Fasting 290 mg/dL (60-99); HDL Cholesterol 38 mg/dL (>40); LDL Cholesterol Calculated 105 mg/dL (<100); Potassium 4.1 mmol/L (3.3-5.1); Sodium 138 mmol/L (135-145); Total Protein 8.7 g/dL (6.5-8.0); Triglycerides 132 mg/dL (<150)
[2024-04-10 09:50] LABS: Alkaline Phosphatase 88 U/L (39-117)
== END 2024-04-10 07:52 | disposition home or self-care (01) ==
LOC: HO.LAB 07:51
PROVIDERS: PCP Internal Medicine; Visit Provider Internal Medicine
DX: E11.69 Type 2 diabetes mellitus with other specified complication (principal); E66.9 Obesity, unspecified; E66.01 Morbid (severe) obesity due to excess calories; Z20.828 Contact with and (suspected) exposure to other viral communicable diseases; M79.10 Myalgia, unspecified site; R50.9 Fever, unspecified
CPT/HCPCS: 36415; 80053; 80061; 82043; 82570; 83036; 85025

== ENCOUNTER 2024-04-15 14:58 | Outpatient (AMB) | payer OTHER, SELFPAY ==
[2024-04-15 15:03] VITALS: BP 132/84; PULSE 94; O2SAT 100; BMI 36.5
--- NOTE | 2024-04-15 15:03 | A.OFFPC_ITS ---
Vital Signs 04/15/24 15:03 Height 5 ft 5 in Weight 219 lb 4 oz BMI 36.5 BP 132/84 Blood Pressure Location Rt brachial Position Sitting Pulse 94 Pulse Source Pulse Oximeter Pulse Oximetry (%) 100 Oxygen Delivery Method Room Air Intake Visit Reasons: 2 weeks f/up Allergies shellfish derived Allergy (Severe, Verified 04/15/24 15:03) Anaphylaxis cefazolin [CEFAZOLIN] Allergy (Intermediate, Verified 04/15/24 15:03) LOCALIZED ITCHING AT INJECTION SITE cephalexin [CEPHALEXIN] Allergy (Intermediate, Verified 04/15/24 15:03) Itching metronidazole [Flagyl] Allergy (Intermediate, Verified 04/15/24 15:03) Hives/itching Medication List - Last Reconciled 04/15/24 by Naz Sandhu MD blood sugar diagnostic (FreeStyle Lite Strips) PATIENT TO CHECK BLOOD SUGAR DAILY blood-glucose meter (FreeStyle Lite Meter kit) patient to check blood sugar daily epinephrine (EpiPen) 0.3 mg (0.3 mL) IM Q10M PRN 90 days gabapentin 300 mg PO BID glipizide 10 mg PO QPM lancets (FreeStyle Lancets) patient to check blood sugar daily as needed lidocaine 5% 1 patch topical DAILY PRN pioglitazone (Actos) 30 mg PO BEDTIME Tobacco use date assessed: 04/15/24 Dental Screening Dental Screen Date: 04/15/24 Did you have a dental visit in the last 12 months?: Yes Did you have a dental problem in the last 6 months where you did not have access to dental care?: No Was dental information given to patient?: Patient has dentist HPI 2 weeks f/up HPI Details - The patient is a 43-year-old female pr esenting with follow-up for Type 2 Diabetes Mellitus management. - Notable for Type 2 Diabetes Mellitus, with HbA1c levels rising to 8.3% from 6.3%. - The patient reports running out of ruth betes medications Glipizide and Pioglitazone, correlating with feelings of illness two weeks prior. - Irregular blood glucose monitoring, co mpounded by absence of a functional glucometer. - Previously tried Trulicity she tolerat ed it well but 3 mg dose was too high for her toe it was stopped, patient would like to go back on 1.5 mg . - Recommendations for consistent blood g lucose tracking with a new glucometer and pending Trulicity re-initiation were set forth. - Overdue for mammogram screening; the l ast conducted on January 10. Problem List - Type 2 Diabetes Mellitus - Epinephrine Auto-Injector - History of adverse reaction to Trulici ty Patient Instructions - Start using Trulicity 1.5 mg as prescr ibed. - Obtain and use a new glucometer to mon itor fasting blood glucose daily; report seven readings weekly. - Refill and carry epinephrine auto-inje ctor at all times. - Schedule and complete an annual mammog lucina screening as overdue. - Return for a follow-up appointment in three months. Review of Systems - General: No fever no chills - Neurological: No headaches no dizziness - Ear nose throat: No sore throat no hearing difficulty no ear pain - Cardiovascular: No syncope, no chest pain, no palpitations - Gastrointestinal: No nausea vomiting or diarrhea - Endocrine: No polyuria polydipsia no heat intolerance - Genitourinary: No dysuria , no blood in urine Physical Exam - General: No acute distress - HEENT: No acute findings - Neck: Supple - Respiratory system: Able to talk in f ull sentences, no audible wheeze - cardiovascular: S1-S2 regular in rat e and rhythm - Gastrointestinal: No pain - Extremities: No new findings - SENIOR PROJECT ENGINEER: Alert awake oriented x3 motor se nsory intact - Skin: Normal turgor PFSH Medical History GERD (gastroesophageal reflux disease) Renal calculi Acute nephritic syndrome, minor glomerular abnormality Fatty liver Back pain Diabetes mellitus type 2 in obese Anxiety, generalized Major depression, recurrent PAD (peripheral artery disease) Recurrent boils Surgical History History of esophagogastroduodenoscopy (EGD) H/O colonoscopy History of carpal tunnel surgery of right wrist Hx of cholecystectomy Hx of cystoscopy History of dilatation and curettage S/P MARYA (total abdominal hysterectomy) Social History Housing: House Are you a primary student career development specialist to a significant other at home: No Do you presently have visiting nurse or other home services: No Alcohol intake: never Comment: counts correct Patient Tobacco Use Status: Never used Tobacco e-Cigarette/Vaping Use: Never Used Second Hand Smoke Exposure: Yes (as a child) Current occupational status: employed Cognitive needs: No Hearing needs: No Vision needs: No Questionnaire Thrive Questionnaire Date Thrive assessed: 03/24/24 I am a: Patient What is your living situation today?: I have a steady place to live Within the past 12 months, did the food you bought not last and you didn't have the money to get more?: Sometimes True Within the past 12 months, did you worry whether your food would run out before you got money to buy more?: Sometimes True Do you have trouble paying for medicines?: No Do you have trouble getting transportation to medical appointments?: No Do you have trouble paying your heating and electricity bill?: Yes Do you have trouble taking care of your child, family member or friend?: No Do you have trouble with day-to-day activities such as bathing, preparing meals, shopping, managing finances, etc.?: No Are you currently unemployed and looking for a job?: No Are you interested in more education?: No Please select the resources that you would like help with: None Currently or been in a relationship where the following occur: No concerns reported THRIVE Score: 3 MICHAEL-7 AMB Questionnaire MICHAEL-7 Date MICHAEL - 7 assessed: 03/27/24 Source: Developed by Drs. Kendrick Israel, Destiny Issa, Krish Harkins and colleagues, with an educational charline from [employer]. Physical exam (Primary Care) Vital Signs: Last Vital Signs Pulse 94 04/15/24 15:03 BP 132/84 04/15/24 15:03 Pulse Ox 100 04/15/24 15:03 Oxygen Delivery Method Room Air 04/15/24 15:03 BMI result Body Mass Index 36.5 Tobacco/Smoking Status: Tobacco use Status Tobacco use date assessed 04/15/24 04/15/24 15:08 Patient Tobacco Use Status Never used Tobacco 04/15/24 15:08 e-Cigarette/Vaping Use Never Used 04/15/24 15:08 Thrive Assessment: Date of Thrive Assessment Date Thrive assessed 03/24/24 04/15/24 15:08 Currently or been in a relationship where the following occur: No concerns reported Coding Level of Care Code Est Pt Level 3 (40369) Diagnoses Diabetes mellitus type 2 in obese E11.69; E66.9 Assessment & Plan Assessment & Plan (1) Diabetes mellitus type 2 in obese: Comment: taking glipizide & actos-dx age 27-checks glucose occasionally-usually ~ 135 Code(s): E11.69 - Type 2 diabetes mellitus with other specified complication; E66.9 - Obesity, unspecified Category: Medical Plan - The patient is a 43-year-old female presenting with follow-up for Type 2 Diabetes Mellitus management. - Notable for Type 2 Diabetes Mellitus, with HbA1c levels rising to 8.3% from 6.3%. - The patient reports running out of diabetes medications Glipizide and Pioglitazone, correlating with feelings of illness two weeks prior. - Irregular blood glucose monitoring, compounded by absence of a functional glucometer. - Previously tried Trulicity she tolerated it well but 3 mg dose was too high for her toe it was stopped, patient would like to go back on 1.5 mg . - Recommendations for consistent blood glucose tracking with a new glucometer and pending Trulicity re-initiation were set forth. - Overdue for mammogram screening; the last conducted on January 10. Problem List - Type 2 Diabetes Mellitus - Epinephrine Auto-Injector - History of adverse reaction to Trulicity Patient Instructions - Start using Trulicity 1.5 mg as prescribed. - Obtain and use a new glucometer to monitor fasting blood glucose daily; report seven readings weekly. - Refill and carry epinephrine auto-injector at all times. - Schedule and complete an annual mammogram screening as overdue. - Return for a follow-up appointment in three months. Orders: Orders Hemoglobin A1c Today E11.69 - Type 2 diabetes mellitus with other specified complication, E66.9 - Obesity, unspecified MM tomosynthesis screening BI Today Z12.31 - Encounter for screening mammogram for malignant neoplasm of breast Comprehensive Met. Panel Today E11.69 - Type 2 diabetes mellitus with other specified complication, E66.9 - Obesity, unspecified Medications: New dulaglutide (Trulicity) 1.5 mg (0.5 mL) subcut QWEEK 30 days 2.5 mL 0RF Refilled epinephrine (EpiPen) 0.3 mg (0.3 mL) IM Q10M 90 days PRN 1 ea 0RF anaphylaxis
--- OUTSIDE RECORDS SUMMARY | 2024-04-15 18:26 | XMS_ITS | Clinical Summary ---
Author Organization [facility] Address [address] [place] [address] Care Team Providers Care Batteryman Name Role Phone Naz Sandhu MD Primary Care Provider [phone] Surgical History Surgery Date Site/Laterality Comments CHOLECYSTECTOMY 10/29/2002 PROCEDURE: HISTORICAL CHOLECYSTECTOMY; COMMENT: For gallstones TUBAL LIGATION 05/01/2004 PROCEDURE: HISTORICAL TUBAL LIGATION OVARIAN CYST REMOVAL 2013 Right PROCEDURE: LA OVARIAN CYSTECTOMY UNI/BI BREAST REDUCTION 2009 Bilateral PROCEDURE: LA BREAST REDUCTION LITHOTRIPSY 2012 Right PROCEDURE: HISTORICAL LITHOTRIPSY; COMMENT: kidney stone OTHER SURGICAL HISTORY PROCEDURE: HISTORICAL D&C; COMMENT: polyp UPPER GASTROINTESTINAL ENDOSCOPY 03/09/2015 PROCEDURE: [place] UPPER GI ENDOSCOPY PERFORMED; COMMENT: diffuse gastric erythema with retained bile; H. pylori positive UPPER GASTROINTESTINAL ENDOSCOPY 02/01/2009 PROCEDURE: [place] UPPER GI ENDOSCOPY PERFORMED; COMMENT: Normal esophagus, [...] age to complete this topic Care Teams Batteryman Relationship Specialty Start Date End Date Naz Sandhu MD [address] [place] [address] PCP - General Internal Medicine 11/06/18
== END 2024-04-15 15:20 | disposition home or self-care (01) ==
PROVIDERS: PCP Internal Medicine; Visit Provider Internal Medicine
DX: E11.69 Type 2 diabetes mellitus with other specified complication (principal); E66.9 Obesity, unspecified; Z68.36 Body mass index [BMI] 36.0-36.9, adult

== ENCOUNTER → 2024-04-15 14:58 | Outpatient (BNVA) | payer OTHER, SELFPAY | PROVIDERS: PCP Internal Medicine; Visit Provider Internal Medicine | DX: E11.69 Type 2 diabetes mellitus with other specified complication (principal); E66.9 Obesity, unspecified | CPT/HCPCS: 99212 ==

== ENCOUNTER 2024-08-04 14:50 | Outpatient (REF) | payer OTHER, SELFPAY ==
[2024-08-04 16:11] LABS: Appearance Urine Clear; Color Urine Yellow; Glucose Urine UA Negative (Negative); Leukocyte Esterase Urine Moderate (2+) (Negative); Nitrite Urine Positive (Negative); UMIC TRIGGER UACC YES; Urine Blood Negative (Negative); Urine Ketones Trace mg/dL (Negative); Urine Protein Negative (Neg-Trace)
[2024-08-04 16:14] LABS: Bacteria Urine 4+ (None Seen); Hyaline Casts Urine 0-2 /LPF (0-2); RBC Urine 0-2 /HPF (0-2); Squamous Epithelial Cell Urine 0-2 /HPF (0-2); UACC Culture Trigger YES; WBC Urine >50 /HPF (0-5)
[2024-08-04 16:18] LABS: MANUAL DIFF FLAG NO
[2024-08-04 16:23] LABS: Basophils Percent Auto 0.2 % (0-2); Eosinophils Absolute Auto 0.1 X10*3/uL (0.0-0.4); Eosinophils Percent Auto 1.7 % (0-4); Hematocrit 34.6 % (37.0-47.0); Hemoglobin 12.1 g/dl (12.0-16.0); Imm Gran Abs Auto 0.02 X10*3/uL (0.00-0.03); Imm Gran Pct Auto 0.2 % (0.0-0.4); Lymphocytes Absolute Auto 2.2 X10*3/uL (1.2-4.9); Lymphocytes Percent Auto 27.3 % (20-40); Mean Corpuscular Hemoglobin 27.5 pg (27.0-33.0); Mean Corpuscular Volume 78.6 fL (80.0-98.0); Mean Platelet Volume 9.4 fL (9.4-12.3); Monocytes Absolute Auto 0.5 X10*3/uL (0.1-1.2); Monocytes Percent Auto 6.6 % (2-11); Neutrophils Absolute Auto 5.2 x10*3/uL (2.0-8.3); Platelet Count 300 X10*3/uL (160-400); Red Cell Distribution Width 12.6 % (11.0-16.0); White Blood Count 8.2 X10*3/uL (4.8-10.8)
[2024-08-04 16:46] LABS: Estimated Average Glucose 140 mg/dL; Hemoglobin A1C 149.4513 umol/L; Hemoglobin A1c % 6.5 % (<6.0)
[2024-08-04 17:18] LABS: Alanine Aminotransferase 43 U/L (0-31); Albumin Level 4.4 g/dL (3.5-5.0); Alkaline Phosphatase 73 U/L (39-117); Anion Gap 12 (12-20); Aspartate Amino Transferase 40 U/L (5-31); Bilirubin Total 0.6 mg/dL (0.0-1.0); Blood Urea Nitrogen 10 mg/dL (9-16); Calcium 9.6 mg/dL (8.4-10.2); Carbon Dioxide 27 mmol/L (22-29); Chloride 106 mmol/L (96-108); Estimated Glomerular Filt Rate > 60; Glucose Random 127 mg/dL (60-115); Potassium 3.6 mmol/L (3.3-5.1); Sodium 141 mmol/L (135-145); Total Protein 7.8 g/dL (6.5-8.0)
[2024-08-06 13:19] LABS: LDL Cholesterol Direct 90 mg/dL (<100)
== END 2024-08-04 14:51 | disposition home or self-care (01) ==
LOC: HO.HMGCLDS 14:50
PROVIDERS: PCP Internal Medicine; Visit Provider Internal Medicine
DX: E11.69 Type 2 diabetes mellitus with other specified complication (principal); E66.812 Obesity, class 2; E66.01 Morbid (severe) obesity due to excess calories; Z68.36 Body mass index [BMI] 36.0-36.9, adult; K76.0 Fatty (change of) liver, not elsewhere classified; M54.16 Radiculopathy, lumbar region; R82.71 Bacteriuria; B96.20 Unspecified Escherichia coli [E. coli] as the cause of diseases classified elsewhere
CPT/HCPCS: 36415; 80053; 81001; 83036; 83721; 85025; 87086; 87088; 87186

== ENCOUNTER 2024-08-04 14:50 | Outpatient (AMB) | payer OTHER, SELFPAY ==
--- NOTE | 2024-08-04 14:52 | A.OFFPC_ITS ---
Vital Signs 08/04/24 14:56 Height 5 ft 5 in Weight 219 lb BMI 36.4 BP 124/82 Blood Pressure Location Rt brachial Position Sitting Respiration 16 Pulse 80 Pulse Source Pulse Oximeter Temp 97.8 F Temp Source Oral Pulse Oximetry (%) 100 Oxygen Delivery Method Room Air Intake Visit Reasons: 3 months f/up Allergies shellfish derived Allergy (Severe, Verified 08/04/24 14:56) Anaphylaxis cefazolin [CEFAZOLIN] Allergy (Intermediate, Verified 08/04/24 14:56) LOCALIZED ITCHING AT INJECTION SITE cephalexin [CEPHALEXIN] Allergy (Intermediate, Verified 08/04/24 14:56) Itching metronidazole [Flagyl] Allergy (Intermediate, Verified 08/04/24 14:56) Hives/itching Medication List - Last Reconciled 08/04/24 by Naz Sandhu MD alcohol swabs (Alcohol Prep Pads) 1 pad topical DAILY blood sugar diagnostic (FreeStyle Lite Strips) CHECK BLOOD SUGAR DAILY blood-glucose meter (FreeStyle Lite Meter kit) patient to check blood sugar daily dulaglutide (Trulicity) 1.5 mg (0.5 mL) subcut QWEEK 30 days epinephrine (EpiPen) 0.3 mg (0.3 mL) IM Q10M PRN 90 days gabapentin 300 mg PO BID lancets (FreeStyle Lancets) check blood sugar daily lidocaine 5% 1 patch topical DAILY PRN lorazepam 0.5 mg PO BEDTIME PRN pioglitazone (Actos) 30 mg PO BEDTIME Tobacco use date assessed: 08/04/24 Dental Screening Dental Screen Date: 08/04/24 Did you have a dental visit in the last 12 months?: No Did you have a dental problem in the last 6 months where you did not have access to dental care?: No Was dental information given to patient?: Patient has dentist HPI 3 months f/up HPI Details History - The patient is a 44-year-old female pr esenting with diabetes management and renal and hepatic symptoms. - She reports having observed changes in urine odor, describing it as similar to old urine or a mcc smell for over a month. - The patient expresses concern about a potential connection between the urine smell and kidney or liver function. - There are no associated symptoms such as burning during urination. - She has been monitoring blood glucose levels, noting some fluctuations, including instances of hypoglycemia and hyperglycemia. - Diabetes treatment is ongoing with Augustine licity for the past three months. - Historically, hemoglobin A1c was recor ded at 8.3% four months prior. - diabetes affecting renal function due to a history of protein in the urine. - No recent changes in diet or medicatio n were reported as factors affecting glucose levels. Medical History: - Diabetes Mellitus, currently managed w [facility]. - High blood pressure is well-controlled . - History of fatty liver. - Patient previously had proteinuria ind icative of possible renal impact from diabetes. Surgical History: - Previous spine surgery. Medications: - Trulicity for diabetes management. - Gabapentin 300 mg for pain management. Through mental telepathist Problem List - Diabetes Mellitus - Suspected Proteinuria - chronic back pain - obesity Patient Instructions - Proceed to the laboratory for blood an d urine tests as ordered. - Follow instructions to have lab work f or sugar, kidney function, liver function, and urine analysis performed today. - Schedule your next appointment for thr ee months from now. - Monitor diet closely, especially on if injections are on Tuesdays, to help control blood sugar levels. - Ensure regular monitoring of blood sug ar levels and adjust diet as needed. - Confirm refill for [facility] medicatio n with pharmacy. Review of Systems - General: No fever no chills - Neurological: No headaches no dizziness - Ear nose throat: No sore throat no hearing difficulty no ear pain - Cardiovascular: No syncope, no chest pain, no palpitations - Gastrointestinal: No nausea vomiting or diarrhea - Endocrine: No polyuria polydipsia no heat intolerance - Genitourinary: No dysuria , no blood in urine Physical Exam General: No acute distress HEENT: No acute findings Neck: Supple Respiratory system: Able to talk in full sentences, no audible wheeze Cardiovascular: S1-S2 regular in rate and rhythm Gastrointestinal: No pain Extremities: No swelling of ankles COMMUNITY RECREATION COORDINATOR: Alert awake oriented x3 motor sensory intact Skin: Normal turgor PFSH Medical History GERD (gastroesophageal reflux disease) Renal calculi Acute nephritic syndrome, minor glomerular abnormality Fatty liver Back pain Diabetes mellitus type 2 in obese Anxiety, generalized Major depression, recurrent PAD (peripheral artery disease) Recurrent boils Surgical History History of esophagogastroduodenoscopy (EGD) H/O colonoscopy History of carpal tunnel surgery of right wrist Hx of cholecystectomy Hx of cystoscopy History of dilatation and curettage S/P MARYA (total abdominal hysterectomy) Social History Housing: House Are you a primary childcare director to a significant other at home: No Do you presently have visiting nurse or other home services: No Alcohol intake: never Comment: counts correct Patient Tobacco Use Status: Never used Tobacco e-Cigarette/Vaping Use: Never Used Second Hand Smoke Exposure: Yes (as a child) Current occupational status: employed Cognitive needs: No Hearing needs: No Vision needs: No Questionnaire Thrive Questionnaire Date Thrive assessed: 03/24/24 I am a: Patient What is your living situation today?: I have a steady place to live Within the past 12 months, did the food you bought not last and you didn't have the money to get more?: Sometimes True Within the past 12 months, did you worry whether your food would run out before you got money to buy more?: Sometimes True Do you have trouble paying for medicines?: No Do you have trouble getting transportation to medical appointments?: No Do you have trouble paying your heating and electricity bill?: Yes Do you have trouble taking care of your child, family member or friend?: No Do you have trouble with day-to-day activities such as bathing, preparing meals, shopping, managing finances, etc.?: No Are you currently unemployed and looking for a job?: No Are you interested in more education?: No Please select the resources that you would like help with: None Currently or been in a relationship where the following occur: No concerns reported THRIVE Score: 3 MICHAEL-7 AMB Questionnaire MICHAEL-7 Date MICHAEL - 7 assessed: 03/27/24 Source: Developed by Drs. Kendrick Israel, Destiny Issa, Krish Harkins and colleagues, with an educational charline from [employer]. Physical exam (Primary Care) Vital Signs: Last Vital Signs Temp 97.8 F 08/04/24 14:56 Pulse 80 08/04/24 14:56 Resp 16 08/04/24 14:56 BP 124/82 08/04/24 14:56 Pulse Ox 100 08/04/24 14:56 Oxygen Delivery Method Room Air 08/04/24 14:56 BMI result Body Mass Index 36.4 Tobacco/Smoking Status: Tobacco use Status Tobacco use date assessed 08/04/24 08/04/24 14:59 Patient Tobacco Use Status Never used Tobacco 08/04/24 14:55 e-Cigarette/Vaping Use Never Used 08/04/24 14:55 Thrive Assessment: Date of Thrive Assessment Date Thrive assessed 03/24/24 08/04/24 14:55 Currently or been in a relationship where the following occur: No concerns reported Coding Level of Care Code Est Pt Level 3 (23197) Diagnoses Diabetes mellitus type 2 in obese E11.69; E66.9 Fatty liver K76.0 Lumbar radiculopathy M54.16 Class 2 severe obesity due to excess calories with serious comorbidity and body mass index (BMI) of 36.0 to 36.9 in adult E66.812; E66.01; Z68.36 Obesity classification: adult class 2 (BMI 35 - 39.9) Serious obesity comorbidity presence: with serious comorbidity Body mass index: BMI 36.0-36.9 Assessment & Plan Assessment & Plan (1) Diabetes mellitus type 2 in obese: Comment: taking glipizide & actos-dx age 27-checks glucose occasionally-usually ~ 135 Code(s): E11.69 - Type 2 diabetes mellitus with other specified complication; E66.9 - Obesity, unspecified Category: Medical (2) Fatty liver: Code(s): K76.0 - Fatty (change of) liver, not elsewhere classified Category: Medical (3) Lumbar radiculopathy: Code(s): M54.16 - Radiculopathy, lumbar region Category: Medical (4) Obesity due to excess calories: Code(s): E66.09 - Other obesity due to excess calories Category: Medical Qualifiers: Obesity classification: adult class 2 (BMI 35 - 39.9) Serious obesity comorbidity presence: with serious comorbidity Body mass index: BMI 36.0-36.9 Qualified Code(s): E66.812 - Obesity, class 2; E66.01 - Morbid (severe) obesity due to excess calories; Z68.36 - Body mass index [BMI] 36.0-36.9, adult Plan History - The patient is a 44-year-old female presenting with diabetes management and renal and hepatic symptoms. - She reports having observed changes in urine odor, describing it as similar to old urine or a mcc smell for over a month. - The patient expresses concern about a potential connection between the urine smell and kidney or liver function. - There are no associated symptoms such as burning during urination. - She has been monitoring blood glucose levels, noting some fluctuations, including instances of hypoglycemia and hyperglycemia. - Diabetes treatment is ongoing with Trulicity for the past three months. - Historically, hemoglobin A1c was recorded at 8.3% four months prior. - diabetes affecting renal function due to a history of protein in the urine. - No recent changes in diet or medication were reported as factors affecting glucose levels. Medical History: - Diabetes Mellitus, currently managed with Trulicity. - High blood pressure is well-controlled. - History of fatty liver. - Patient previously had proteinuria indicative of possible renal impact from diabetes. Surgical History: - Previous spine surgery. Medications: - Trulicity for diabetes management. - Gabapentin 300 mg for pain management. Through mental telepathist Problem List - Diabetes Mellitus - Suspected Proteinuria - chronic back pain - obesity Patient Instructions - Proceed to the laboratory for blood and urine tests as ordered. - Follow instructions to have lab work for sugar, kidney function, liver function, and urine analysis performed today. - Schedule your next appointment for three months from now. - Monitor diet closely, especially on Mondays if injections are on Tuesdays, to help control blood sugar levels. - Ensure regular monitoring of blood sugar levels and adjust diet as needed. - Confirm refill for Trulicity medication with pharmacy. Orders: Orders Hemoglobin A1c Today E11.69 - Type 2 diabetes mellitus with other specified complication, E66.01 - Morbid (severe) obesity due to excess calories, E66.9 - Obesity, unspecified, K76.0 - Fatty (change of) liver, not elsewhere classified, M54.16 - Radiculopathy, lumbar region Complete Blood Count Auto Diff Today E11.69 - Type 2 diabetes mellitus with other specified complication, E66.01 - Morbid (severe) obesity due to excess calories, E66.9 - Obesity, unspecified, K76.0 - Fatty (change of) liver, not elsewhere classified, M54.16 - Radiculopathy, lumbar region Comprehensive Met. Panel Today E11.69 - Type 2 diabetes mellitus with other specified complication, E66.01 - Morbid (severe) obesity due to excess calories, E66.9 - Obesity, unspecified, K76.0 - Fatty (change of) liver, not elsewhere classified, M54.16 - Radiculopathy, lumbar region LDL Cholesterol Direct Today E11.69 - Type 2 diabetes mellitus with other specified complication, E66.01 - Morbid (severe) obesity due to excess calories, E66.9 - Obesity, unspecified, K76.0 - Fatty (change of) liver, not elsewhere classified, M54.16 - Radiculopathy, lumbar region UA CC w/rflx Micro + Cult Today E11.69 - Type 2 diabetes mellitus with other specified complication, E66.01 - Morbid (severe) obesity due to excess calories, E66.9 - Obesity, unspecified, K76.0 - Fatty (change of) liver, not elsewhere classified, M54.16 - Radiculopathy, lumbar region Medications: Refilled dulaglutide (Trulicity) 1.5 mg (0.5 mL) subcut QWEEK 30 days 2.5 mL 2RF Discontinued pioglitazone (Actos) Discontinued Reason: Doctor's Order 30 mg PO BEDTIME lorazepam Discontinued Reason: Doctor's Order 0.5 mg PO BEDTIME PRN 10 tabs 0RF anxiety
[2024-08-04 14:56] VITALS: BP 124/82; PULSE 80; RESP 16; TEMP 36.6; O2SAT 100; BMI 36.4
== END 2024-08-04 15:14 | disposition home or self-care (01) ==
PROVIDERS: PCP Internal Medicine; Visit Provider Internal Medicine
DX: E11.69 Type 2 diabetes mellitus with other specified complication (principal); E66.01 Morbid (severe) obesity due to excess calories; Z68.36 Body mass index [BMI] 36.0-36.9, adult; K76.0 Fatty (change of) liver, not elsewhere classified; M54.16 Radiculopathy, lumbar region

== ENCOUNTER 2024-09-16 12:16 | Outpatient (AMB) | payer OTHER, SELFPAY ==
--- OUTSIDE RECORDS SUMMARY | 2024-09-16 12:58 | XMS_ITS | Clinical Summary ---
Author Organization [facility] Address [address] [place] [address] Care Team Providers Care Straightedge Man Name Role Phone Naz Sandhu MD Primary Care Provider [phone] Surgical History Surgery Date Site/Laterality Comments CHOLECYSTECTOMY 10/29/2002 PROCEDURE: HISTORICAL CHOLECYSTECTOMY; COMMENT: For gallstones TUBAL LIGATION 05/01/2004 PROCEDURE: HISTORICAL TUBAL LIGATION OVARIAN CYST REMOVAL 2013 Right PROCEDURE: [place] OVARIAN CYSTECTOMY UNI/BI BREAST REDUCTION 2009 Bilateral PROCEDURE: [place] BREAST REDUCTION LITHOTRIPSY 2012 Right PROCEDURE: HISTORICAL LITHOTRIPSY; COMMENT: kidney stone OTHER SURGICAL HISTORY PROCEDURE: HISTORICAL D&C; COMMENT: polyp UPPER GASTROINTESTINAL ENDOSCOPY 03/09/2015 PROCEDURE: [place] UPPER GI ENDOSCOPY PERFORMED; COMMENT: diffuse gastric erythema with retained bile; H. pylori positive UPPER GASTROINTESTINAL ENDOSCOPY 02/01/2009 PROCEDURE: [place] UPPER GI ENDOSCOPY PERFORMED; COMMENT: Normal esophagus, [...] 07/17/2009 01/17/2009 Cholesterol Screening (Lipid Panel) 01/21/2022 HIV Screening 01/21/2022 Hepatitis C Screening 01/21/2022 Social Influencers of Health Screening 01/21/2022 Diabetes: Annual Urine Albumin-Creatinine Ratio (uACR) 01/25/2022 Diabetes: Blood Sugar Control Test (HGBA1C) 01/25/2022 COVID-19 Vaccine ( season) 2023 Depression Screening 02/19/2024 Influenza Vaccine (#1) 2024 , 12/03/2018, 12/04/2017, Additional history exists DTaP,Tdap,and Td Vaccines (3 - Td or Tdap) 01/23/2026 01/24/2016, 03/19/2007 Pneumococcal Vaccine: Pediatrics (0 to 5 Years) and At-Risk Patients (6 to 49 Years) Aged Out 05/20/2015 No longer eligible [...] age to complete this topic Meningococcal B Vaccine Aged Out No l onger eligible based on patient's age to complete this topic RSV Immunization Patients Under 20 months Aged Out No longer eligible based on patient's age to complete this topic Varicella Vaccines Aged Out No longer eligible based on patient's age to complete this topic Care Teams Straightedge Man Relationship Specialty Start Date End Date Naz Sandhu MD [address] [place] [address] PCP - General Internal Medicine 11/06/18
[2024-09-16 13:30] VITALS: BP 134/82; PULSE 88; TEMP 36.7; O2SAT 98; BMI 37.0
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
== END 2024-09-16 14:43 | disposition home or self-care (01) ==
PROVIDERS: PCP Internal Medicine; Visit Provider Physician Assistant
DX: S09.90XA Unspecified injury of head, initial encounter (principal)

== ENCOUNTER → 2024-09-16 12:16 | Outpatient (BNVA) | payer OTHER, SELFPAY | PROVIDERS: PCP Internal Medicine; Visit Provider Physician Assistant | DX: S09.90XA Unspecified injury of head, initial encounter (principal); R51.9 Headache, unspecified; E11.9 Type 2 diabetes mellitus without complications; Y04.8XXA Assault by other bodily force, initial encounter; Y93.9 Activity, unspecified; Y92.9 Unspecified place or not applicable; Y99.0 Civilian activity done for income or pay | CPT/HCPCS: 99212 ==

== ENCOUNTER 2024-09-17 13:41 | Emergency (ER) | payer OTHER, SELFPAY ==
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
[2024-09-17 13:43] VITALS: BP 135/61; PULSE 81; RESP 17; TEMP 36.3; O2SAT 100; BMI 37.4
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
[2024-09-17 14:32] VITALS: BP 124/86; PULSE 80; RESP 14; TEMP 36.5; O2SAT 98
--- OUTSIDE RECORDS SUMMARY | 2024-09-17 14:41 | XMS_ITS | Clinical Summary ---
Author Organization [employer] [facility] Address [address] [place] [address] Care Team Providers Care Packaging Machine Operator Name Role Phone Naz Sandhu MD Primary Care Provider [phone] Surgical History Surgery Date Site/Laterality Comments CHOLECYSTECTOMY 10/29/2002 PROCEDURE: HISTORICAL CHOLECYSTECTOMY; COMMENT: For gallstones TUBAL LIGATION 05/01/2004 PROCEDURE: HISTORICAL TUBAL LIGATION OVARIAN CYST REMOVAL 2013 Right PROCEDURE: NV OVARIAN CYSTECTOMY UNI/BI BREAST REDUCTION 2009 Bilateral PROCEDURE: NV BREAST REDUCTION LITHOTRIPSY 2012 Right PROCEDURE: HISTORICAL LITHOTRIPSY; COMMENT: kidney stone OTHER SURGICAL HISTORY PROCEDURE: HISTORICAL D&C; COMMENT: polyp UPPER GASTROINTESTINAL ENDOSCOPY 03/09/2015 PROCEDURE: NV UPPER GI ENDOSCOPY PERFORMED; COMMENT: diffuse gastric erythema with retained bile; H. pylori positive UPPER GASTROINTESTINAL ENDOSCOPY 02/01/2009 PROCEDURE: NV UPPER GI ENDOSCOPY PERFORMED; COMMENT: Normal esophagus, [...] age to complete this topic Care Teams Packaging Machine Operator Relationship Specialty Start Date End Date Naz Sandhu MD [address] [place] [address] PCP - General Internal Medicine 11/06/18
[2024-09-17 16:04] VITALS: BP 127/82; PULSE 86; RESP 16; TEMP 36.6; O2SAT 99
[2024-09-17 16:10] VITALS: BP 127/82; PULSE 86; RESP 16; TEMP 36.6; O2SAT 99
== END 2024-09-17 16:17 | disposition home or self-care (01) ==
PROVIDERS: Emergency Provider Emergency Medicine; PCP Internal Medicine
DX: S06.0X0A Concussion without loss of consciousness, initial encounter (principal); M54.2 Cervicalgia; R51.9 Headache, unspecified; Y04.2XXA Assault by strike against or bumped into by another person, initial encounter; Y93.9 Activity, unspecified; Y92.9 Unspecified place or not applicable; Y99.0 Civilian activity done for income or pay
CPT/HCPCS: 70450; 72125; 99283; 99284

== ENCOUNTER → 2024-09-17 13:47 | Outpatient (BNV) | payer OTHER, SELFPAY | PROVIDERS: Emergency Provider Emergency Medicine; PCP Internal Medicine; Visit Provider Radiology Diagnostic Radiology | DX: M47.812 Spondylosis without myelopathy or radiculopathy, cervical region (principal); S09.90XA Unspecified injury of head, initial encounter | CPT/HCPCS: 70450; 72125 ==

== ENCOUNTER 2024-11-10 14:41 | Outpatient (AMB) | payer OTHER, SELFPAY ==
--- NOTE | 2024-11-10 14:43 | A.OFFPC_ITS ---
Vital Signs 11/10/24 14:44 Height 5 ft 4 in Weight 218 lb BMI 37.4 BP 130/72 Blood Pressure Location Lt brachial Position Sitting Pulse 90 Pulse Source Pulse Oximeter Pulse Oximetry (%) 99 Oxygen Delivery Method Room Air Intake Visit Reasons: 3 months f/up Pet Care Attendant Required: No Allergies shellfish derived Allergy (Severe, Verified 11/10/24 14:46) Anaphylaxis cefazolin (CEFAZOLIN) Allergy (Intermediate, Verified 11/10/24 14:46) LOCALIZED ITCHING AT INJECTION SITE cephalexin (CEPHALEXIN) Allergy (Intermediate, Verified 11/10/24 14:46) Itching metronidazole (Flagyl) Allergy (Intermediate, Verified 11/10/24 14:46) Hives/itching Medication List - Last Reconciled 11/10/24 by Naz Sandhu MD alcohol swabs (Alcohol Prep Pads) 1 pad topical DAILY blood sugar diagnostic (FreeStyle Lite Strips) CHECK BLOOD SUGAR DAILY blood-glucose meter (FreeStyle Lite Meter kit) patient to check blood sugar daily dulaglutide (Trulicity) 1.5 mg (0.5 mL) subcut QWEEK 30 days epinephrine (EpiPen) 0.3 mg (0.3 mL) IM Q10M PRN 90 days gabapentin 300 mg PO BID lancets (FreeStyle Lancets) check blood sugar daily Tobacco use date assessed: 08/04/24 Dental Screening Dental Screen Date: 08/04/24 HPI 3 months f/up 2 HPI Details Subjective The patient is a 44 year old female presenting with management of diabetes. Diabetes: - Diagnosed previously and managed with Trulicity 1.5 mg daily. - Hemoglobin A1c was 6.5 in July; samantha tly reported as 8.8, attributed to stress eating. Anxiety: - The patient reports anxiety related to ongoing divorce. - Experiences overeating as a coping mec hanism for anxiety. - Feels anxious about potential weight g ain impacting blood sugar levels. Obesity: - The patient is obese with a BMI of 37. 4. - Reports difficulty losing weight; attr ibuted to overeating and stress. Lumbar Disc Disease with Radiculopathy: - Diagnosed as lumbar disc disease with radiculopathy; condition is reported as stable. Stress related to divorce: - Stress due to the process of divorce w carlosh involves division of assets including a house partly paid by her. - Reports difficulties due to spouse?s s ubstance use, adding to stress and anxiety. - Feels lack of support from family desp ite their geographical proximity. Social History: - Family status: Going through a divorce , has two adult children. - Functional status: Reports increased a nxiety affecting dietary habits and weight. - Current nutritional intake: Engaging i n overeating due to anxiety; attempting to manage by avoiding purchase of certain foods like candies. - Housing: At risk of losing the house d ue to [employer] division in divorce. 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 Medical History - Diabetes mellitus - Lumbar disc disease with radiculopathy - Fatty liver disease - Obesity Medications - Trulicity 1.5 mg daily for diabetes - Gabapentin 300 mg BID for pain managem ent Diagnostic results - Labs: - Normal hemoglobin and white ce ll count from CBC. - Electrolytes within normal limits. - Kidney function intact. - Hemoglobin A1c: 6.5 in July. - Liver enzymes slightly elevated due to fatty liver. - LDL cholesterol level: 105, considered stable. Counseling I advised the patient on the potential benefits of taking half a tablet of escitalopram, gradually increasing to a full tablet upon tolerance assessment to address her anxiety concerns. We discussed continuing her work to maintain an occupied mindset rather than taking a vacation at this stressful moment.. Diet History The patient reports overeating as a consequence of anxiety with unpredictable patterns. Attempts to reduce intake by removing tempting foods like candies from her home have been unsuccessful, as she finds alternatives. She consumes foods she believes are not conducive to managing her weight and blood sugar effectively, acknowledging a necessity to readdress her choices and portions. Problem List - Diabetes Mellitus with elevated A1c - Anxiety related to divorce, overeating - Obesity - Lumbar Disc Disease with Radiculopathy - Fatty Liver Disease Patient Instructions - Begin taking half a tablet of escitalo pram 10 mg daily, increasing to a full tablet after one week if well tolerated. - Continue using Trulicity as prescribed ; monitor sugar levels regularly. - Engage in stress-reducing activities, such as walking, and continue to reduce sugar intake at home. - Stay in touch with your mental health provider and coordinate prescription needs. - Follow-up with a blood test in [facility] to re-evaluate A1c and overall health. Review of Systems - General: No fever no chills - Neurological: No headaches no dizzine ss - Ear nose throat: No sore throat no he aring difficulty no ear pain - Cardiovascular : No syncope, no chest pain, no palpitations - Gastrointestinal: No nausea vomiting or diarrhea - Endocrine: No polyuria polydipsia no heat intolerance - Genitourinary: No dysuria , no blood in urine Physical Exam General: No acute distress HEENT: No acute findings Neck: Supple Respiratory system: Able to talk in full sentences, no audible wheeze Cardiovascular: S1-S2 regular in rate and rhythm Gastrointestinal: bowel sounds positive no pain Extremities: no new findings SENIOR ORACLE DEVELOPER: Alert awake oriented x3 motor sensory intact Skin: Normal turgor psychiatry: Answers appropriately, makes eye contact, tearful during conversation Patient was informed and verbally consented to the use of an ambient scribe for clinic note documentation during this visit. [facility] Medical History GERD (gastroesophageal reflux disease) Renal calculi Acute nephritic syndrome, minor glomerular abnormality Fatty liver Back pain Diabetes mellitus type 2 in obese Anxiety, generalized Major depression, recurrent PAD (peripheral artery disease) Recurrent boils Surgical History History of esophagogastroduodenoscopy (EGD) H/O colonoscopy History of carpal tunnel surgery of right wrist Hx of cholecystectomy Hx of cystoscopy History of dilatation and curettage S/P MARYA (total abdominal hysterectomy) Social History Housing: House Are you a primary career orientation teacher to a significant other at home: No Do you presently have visiting nurse or other home services: No Alcohol intake: never Comment: counts correct Patient Tobacco Use Status: Never used Tobacco e-Cigarette/Vaping Use: Never Used Second Hand Smoke Exposure: Yes (as a child) Current occupational status: employed Cognitive needs: No Hearing needs: No Vision needs: No Questionnaire PHQ-9 Over the last 2 weeks, how often have you been bothered by any of the following problems? 1. Little interest or pleasure in doing things: not at all 2. Feeling down, depressed, or hopeless: not at all 3. Trouble falling or staying asleep, or sleeping too much: not at all 4. Feeling tired or having little energy: not at all 5. Poor appetite or overeating: not at all 6. Feeling bad about yourself - or that you are a failure or have let yourself or your family down: not at all 7. Trouble concentrating on things, such as reading the newspaper or watching television: not at all 8. Moving or speaking so slowly that other people could have noticed. Or the opposite - being so fidgety or restless that you have been moving around a lot more than usual: not at all 9. Thoughts that you would be better off or of hurting yourself in some way: not at all Total score: 0 Depression Screening Interpretation: Negative Depression Screening Done: Yes [id number] - PHQ-9 Billing: Yes Source: Developed by Drs. Kendrick Israel, Krish Short and colleagues, with an educational charline from [employer]. Thrive Questionnaire Date Thrive assessed: 03/24/24 I am a: Patient What is your living situation today?: I have a steady place to live Within the past 12 months, did the food you bought not last and you didn't have the money to get more?: Sometimes True Within the past 12 months, did you worry whether your food would run out before you got money to buy more?: Sometimes True Do you have trouble paying for medicines?: No Do you have trouble getting transportation to medical appointments?: No Do you have trouble paying your heating and electricity bill?: Yes Do you have trouble taking care of your child, family member or friend?: No Do you have trouble with day-to-day activities such as bathing, preparing meals, shopping, managing finances, etc.?: No Are you currently unemployed and looking for a job?: No Are you interested in more education?: No Please select the resources that you would like help with: None Currently or been in a relationship where the following occur: No concerns reported THRIVE Score: 3 MICHAEL-7 AMB Questionnaire MICHAEL-7 Date MICHAEL - 7 assessed: 03/27/24 Source: Developed by Drs. Kendrick Israel, Krish Short and colleagues, with an educational charline from [employer]. Physical exam (Primary Care) Vital Signs: Last Vital Signs Pulse 90 11/10/24 14:44 BP 130/72 11/10/24 14:44 Pulse Ox 99 11/10/24 14:44 Oxygen Delivery Method Room Air 11/10/24 14:44 BMI result Body Mass Index 37.4 Tobacco/Smoking Status: Tobacco use Status Tobacco use date assessed 08/04/24 11/10/24 14:44 Patient Tobacco Use Status Never used Tobacco 11/10/24 14:44 e-Cigarette/Vaping Use Never Used 11/10/24 14:44 PHQ-9: PHQ-9 Score PHQ-9: Total score 0 11/10/24 14:49 Depression Screening Interpretation: Negative Thrive Assessment: Date of Thrive Assessment Date Thrive assessed 03/24/24 11/10/24 14:44 Currently or been in a relationship where the following occur: No concerns reported Coding Level of Care Code Est Pt Level 4 (29045) Diagnoses Diabetes mellitus type 2 in obese E11.69; E66.9 Marital conflict involving divorce Z63.5 Anxiety and depression F41.9; F32.A Fatty liver K76.0 Lumbar radiculopathy M54.16 Class 2 severe obesity due to excess calories with serious comorbidity and body mass index (BMI) of 36.0 to 36.9 in adult E66.812; E66.01; Z68.36 Obesity classification: adult class 2 (BMI 35 - 39.9) Serious obesity comorbidity presence: with serious comorbidity Body mass index: BMI 36.0-36.9 Additional Codes PHQ-9 - 97773 - PHQ-9 Billing: Yes ([id number]) Assessment & Plan Assessment & Plan (1) Diabetes mellitus type 2 in obese: Comment: taking glipizide & actos-dx age 27-checks glucose occasionally-usually ~ 135 Code(s): E11.69 - Type 2 diabetes mellitus with other specified complication; E66.9 - Obesity, unspecified Category: Medical (2) Marital conflict involving divorce: Code(s): Z63.5 - Disruption of family by separation and divorce Category: Social Hx (3) Anxiety and depression: Code(s): F41.9 - Anxiety disorder, unspecified; F32.A - Depression, unspecified Category: Medical (4) Fatty liver: Code(s): K76.0 - Fatty (change of) liver, not elsewhere classified Category: Medical (5) Lumbar radiculopathy: Code(s): M54.16 - Radiculopathy, lumbar region Category: Medical (6) Obesity due to excess calories: Code(s): E66.09 - Other obesity due to excess calories Category: Medical Qualifiers: Obesity classification: adult class 2 (BMI 35 - 39.9) Serious obesity comorbidity presence: with serious comorbidity Body mass index: BMI 36.0-36.9 Qualified Code(s): E66.812 - Obesity, class 2; E66.01 - Morbid (severe) obesity due to excess calories; Z68.36 - Body mass index [BMI] 36.0-36.9, adult Plan Subjective The patient is a 44 year old female presenting with management of diabetes. Diabetes: - Diagnosed previously and managed with Trulicity 1.5 mg daily. - Hemoglobin A1c was 6.5 in July; currently reported as 8.8, attributed to stress eating. Anxiety: - The patient reports anxiety related to ongoing divorce. - Experiences overeating as a coping mechanism for anxiety. - Feels anxious about potential weight gain impacting blood sugar levels. Obesity: - The patient is obese with a BMI of 37.4. - Reports difficulty losing weight; attributed to overeating and stress. Lumbar Disc Disease with Radiculopathy: - Diagnosed as lumbar disc disease with radiculopathy; condition is reported as stable. Stress related to divorce: - Stress due to the process of divorce which involves division of assets including a house partly paid by her. - Reports difficulties due to spouse?s substance use, adding to stress and anxiety. - Feels lack of support from family despite their geographical proximity. Social History: - Family status: Going through a divorce, has two adult children. - Functional status: Reports increased anxiety affecting dietary habits and weight. - Current nutritional intake: Engaging in overeating due to anxiety; attempting to manage by avoiding purchase of certain foods like candies. - Housing: At risk of losing the house due to asset division in divorce. 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 Medical History - Diabetes mellitus - Lumbar disc disease with radiculopathy - Fatty liver disease - Obesity Medications - Trulicity 1.5 mg daily for diabetes - Gabapentin 300 mg BID for pain management Diagnostic results - Labs: - Normal hemoglobin and white cell count from CBC. - Electrolytes within normal limits. - Kidney function intact. - Hemoglobin A1c: 6.5 in July. - Liver enzymes slightly elevated due to fatty liver. - LDL cholesterol level: 105, considered stable. Counseling I advised the patient on the potential benefits of taking half a tablet of escitalopram, gradually increasing to a full tablet upon tolerance assessment to address her anxiety concerns. We discussed continuing her work to maintain an occupied mindset rather than taking a vacation at this stressful moment.. Diet History The patient reports overeating as a consequence of anxiety with unpredictable patterns. Attempts to reduce intake by removing tempting foods like candies from her home have been unsuccessful, as she finds alternatives. She consumes foods she believes are not conducive to managing her weight and blood sugar effectively, acknowledging a necessity to readdress her choices and portions. Problem List - Diabetes Mellitus with elevated A1c - Anxiety related to divorce, overeating - Obesity - Lumbar Disc Disease with Radiculopathy - Fatty Liver Disease Patient Instructions - Begin taking half a tablet of escitalopram 10 mg daily, increasing to a full tablet after one week if well tolerated. - Continue using Trulicity as prescribed; monitor sugar levels regularly. - Engage in stress-reducing activities, such as walking, and continue to reduce sugar intake at home. - Stay in touch with your mental health provider and coordinate prescription needs. - Follow-up with a blood test in January to re-evaluate A1c and overall health. Orders: Orders TSH reflex Free T4 2 Months E11.69 - Type 2 diabetes mellitus with other specified complication, E66.01 - Morbid (severe) obesity due to excess calories, E66.812 - Obesity, class 2, E66.9 - Obesity, unspecified, F32.A - Depression, unspecified, F41.9 - Anxiety disorder, unspecified, K76.0 - Fatty (change of) liver, not elsewhere classified, Z68.36 - Body mass index [BMI] 36.0-36.9, adult Hemoglobin A1c 2 Months E11.69 - Type 2 diabetes mellitus with other specified complication, E66.01 - Morbid (severe) obesity due to excess calories, E66.812 - Obesity, class 2, E66.9 - Obesity, unspecified, F32.A - Depression, unspecified, F41.9 - Anxiety disorder, unspecified, K76.0 - Fatty (change of) liver, not elsewhere classified, Z68.36 - Body mass index [BMI] 36.0-36.9, adult Microalbumin, Random (w Creat) 2 Months . - Type 2 diabetes mellitus with other specified complication, E66.01 - Morbid (severe) obesity due to excess calories, E66.812 - Obesity, class 2, E66.9 - Obesity, unspecified, F32.A - Depression, unspecified, F41.9 - Anxiety disorder, unspecified, K76.0 - Fatty (change of) liver, not elsewhere classified, Z68.36 - Body mass index [BMI] 36.0-36.9, adult Complete Blood Count Auto Diff 2 Months . - Type 2 diabetes mellitus with other specified complication, E66.01 - Morbid (severe) obesity due to excess calories, E66.812 - Obesity, class 2, E66.9 - Obesity, unspecified, F32.A - Depression, unspecified, F41.9 - Anxiety disorder, unspecified, K76.0 - Fatty (change of) liver, not elsewhere classified, Z68.36 - Body mass index [BMI] 36.0-36.9, adult Comprehensive [place]. Panel Fast 2 Months . - Type 2 diabetes mellitus with other specified complication, E66.01 - Morbid (severe) obesity due to excess calories, E66.812 - Obesity, class 2, E66.9 - Obesity, unspecified, F32.A - Depression, unspecified, F41.9 - Anxiety disorder, unspecified, K76.0 - Fatty (change of) liver, not elsewhere classified, Z68.36 - Body mass index [BMI] 36.0-36.9, adult Lipid Panel 2 Months . - Type 2 diabetes mellitus with other specified complication, E66.01 - Morbid (severe) obesity due to excess calories, E66.812 - Obesity, class 2, E66.9 - Obesity, unspecified, F32.A - Depression, unspecified, F41.9 - Anxiety disorder, unspecified, K76.0 - Fatty (change of) liver, not elsewhere classified, Z68.36 - Body mass index [BMI] 36.0-36.9, adult Medications: New escitalopram oxalate (Lexapro) 10 mg PO DAILY 30 tabs 0RF Refilled dulaglutide (Trulicity) 1.5 mg (0.5 mL) subcut QWEEK 2.5 mL 2RF 30 days
[2024-11-10 14:44] VITALS: BP 130/72; PULSE 90; O2SAT 99; BMI 37.4
--- OUTSIDE RECORDS SUMMARY | 2024-11-10 17:52 | XMS_ITS | Encounter Summary ---
Author Organization [facility] Address [address] [place] [address] Care Team Providers Care Public Utilities Sales Representative Name Role Phone Vaishali Aguilar MD Primary Care Provider Ciarra Ramos Unavailable Unavailable Naz Sandhu MD Primary Care Provider Unavailabl e Encounter Details Date Type Department Care Team Description 03/22/2015 Coil Tier Report Medical Records [address] [place] [address] Dulce Looney [address] [place] [id number] Social History Tobacco Use Types Packs/Day Years Used Date Smoking Tobacco: Former Cigarettes 1 2 Q uit: 06/29/2009 Smokeless Tobacco: Former Alcohol Use Standard Drinks/Week Comments No 0 (1 standard drink = 0.6 oz pur e alcohol) Sex Assigned at Date Recorded Not on file documented as of this encounter Plan of Treatment Not on file documented as of this encounter Visit Diagnoses Not on filedocumented in this encounter Care Teams Public Utilities Sales Representative Relationship Specialty Start Date End Date Vaishali Aguilar MD PCP - General Internal Medicine 06/29/14 11/05/18 Naz Sandhu MD PCP - General Internal Medicine 11/06/18 [facility] 12/26/12 documented as of this encounter
--- OUTSIDE RECORDS SUMMARY | 2024-11-10 17:52 | XMS_ITS | Encounter Summary ---
Author Organization [facility] Address [address] [place] [address] Care Team Providers Care Property Insurance Claims Examiner Name Role Phone Vaishali Aguilar MD Primary Care Provider Ciarra Ramos Unavailable Unavailable Naz Sandhu MD Primary Care Provider Unavailabl e Encounter Details Date Type Department Care Team Description 04/12/2015 Retail Loss Prevention Officer Report Medical Records [address] [place] [address] Dulce Looney [address] [place] [id number] Social History Tobacco Use Types Packs/Day Years [...] on filedocumented in this encounter Care Teams Property Insurance Claims Examiner Relationship Specialty Start Date End Date Vaishali Aguilar MD PCP - General Internal Medicine 06/29/14 11/05/18 Naz Sandhu MD PCP - General Internal Medicine 11/06/18 [facility] 12/26/12 documented as of this encounter
--- OUTSIDE RECORDS SUMMARY | 2024-11-10 17:52 | XMS_ITS | Encounter Summary ---
Author Organization [facility] Address [address] [facility] [place] [address] Care Team Providers Care Crisis Manager Name Role Phone Vaishali Aguilar MD Primary Care Provider Ciarra Ramos Unavailable Unavailable Naz Sandhu MD Primary Care Provider Unavailabl e Encounter Details Date Type Department Care Team Description 10/05/2014 Catalyst Plant Supervisor Report Medical Records [address] [place] [id number] Kate Sandhu MD Social History Tobacco Use Types Packs/Day Years Used Date Smoking Tobacco: Former Cigarettes 1 2 Q uit: 06/29/2009 Alcohol Use Standard Drinks/Week Comments No 0 (1 standard drink = 0.6 oz pur e alcohol) socialy Sex Assigned at Date Recorded Not on file documented as of this encounter Plan of Treatment Not on file documented as of this encounter Visit Diagnoses Not on filedocumented in this encounter Care Teams Crisis Manager Relationship Specialty Start Date End Date Vaishali Aguilar MD PCP - General Internal Medicine 06/29/14 11/05/18 Naz Sandhu MD PCP - General Internal Medicine 11/06/18 [facility] 12/26/12 documented as of this encounter
--- OUTSIDE RECORDS SUMMARY | 2024-11-10 17:52 | XMS_ITS | Encounter Summary ---
Author Organization [facility] Address [address] [place] [address] Care Team Providers Care Dairy Manager Name Role Phone Vaishali Aguilar MD Primary Care Provider Ciarra Ramos Unavailable Unavailable Naz Sandhu MD Primary Care Provider Unavailabl e Encounter Details Date Type Department Care Team Description 03/02/2015 Telephone Gastroenterology - [address] [address] Darrell Soria MD Social History Tobacco Use Types Packs/Day Years Used Date Smoking Tobacco: Former Cigarettes 1 2 Q uit: 06/29/2009 Smokeless Tobacco: Former Alcohol Use Standard Drinks/Week Comments No 0 (1 standard drink = 0.6 oz pur e alcohol) socialy Sex Assigned at Date Recorded Not on file documented as of this encounter Miscellaneous Notes * Telephone Encounter - Riri Ferrer - 03/02/2015 4:39 PM EST documented in this encounter Plan of Treatment Not on file documented as of this encounter Visit Diagnoses Not on filedocumented in this encounter Care Teams Dairy Manager Relationship Specialty Start Date End Date Vaishali Aguilar MD PCP - General Internal Medicine 06/29/14 11/05/18 Naz Sandhu MD PCP - General Internal Medicine 11/06/18 [facility] 12/26/12 documented as of this encounter
--- OUTSIDE RECORDS SUMMARY | 2024-11-10 17:53 | XMS_ITS | Encounter Summary ---
Author Organization [facility] Address [address] [place] [address] Care Team Providers Care Dry House Wheeler Name Role Phone Vaishali Aguilar MD Primary Care Provider Ciarra Ramos Unavailable Unavailable Naz Sandhu MD Primary Care Provider Unavailabl e Encounter Details Date Type Department Care Team Description 03/06/2016 Tube Drawer Report Medical Records [address] [place] [address] Social History Tobacco Use Types Packs/Day Years [...] on filedocumented in this encounter Care Teams Dry House Wheeler Relationship Specialty Start Date End Date Vaishali Aguilar MD PCP - General Internal Medicine 06/29/14 11/05/18 Naz Sandhu MD PCP - General Internal Medicine 11/06/18 [facility] 12/26/12 documented as of this encounter
--- OUTSIDE RECORDS SUMMARY | 2024-11-10 17:53 | XMS_ITS | Encounter Summary ---
Author Organization [facility] Address [address] [place] [address] Care Team Providers Care Hospice Entrance Attendant Name Role Phone MariluzShanita mcallistero Unavailable Unavailable Naz Sandhu MD Primary Care Provider Unavailabl e Reason for Visit * Reason Onset Date Comments refill request 11/25/2019 Encounter Details Date Type Department Care Team Description 11/25/2019 Refill Physiatry - [address] [address] Nitin Cisneros DO refill request Social History Tobacco Use Types Packs/Day Years Used Date Smoking Tobacco: Former Cigarettes 1 2 Q uit: 06/29/2009 Smokeless Tobacco: Never Alcohol Use Standard Drinks/Week Comments No 0 (1 standard drink = 0.6 oz pur e alcohol) Sex Assigned at Date Recorded Not on file documented as of this encounter Miscellaneous Notes * Telephone Encounter - Magdalena Boyer L.P.N. - 11/25/2019 1:43 PM EDT Last refill 03/02/19 Last visit injection 03/13/19 Next visit not booked * Telephone Encounter - Burt Rodriguez - 11/25/2019 1:29 PM EDT All of the medications requested were on the CURRENT MEDS list Did you check the Pharmacy information above?: YES Patient wants: 30 -day supply Is this a mail order prescription request ? NO If the refill is from a FAXED refill request what is the RX # listed on the fax? N/A Patients current insurance carrier is: Payor: [employer] FFS / Plan: Systems Integration / Product Type: MEDICAID RISK Insurance ID #: PENDING documented in this encounter Plan of Treatment Not on file documented as of this encounter Visit Diagnoses Diagnosis Lumbar radiculitis Thoracic or lumbosacral neuritis or radiculitis, unspecified Chronic right-sided low back pain with right-sided sciatica Carpal tunnel syndrome of right wrist Carpal tunnel syndrome documented in this encounter Care Teams Hospice Entrance Attendant Relationship Specialty Start Date End Date Naz Sandhu MD PCP - General Internal Medicine 11/06/18 [facility] 12/26/12 documented as of this encounter
--- OUTSIDE RECORDS SUMMARY | 2024-11-10 17:53 | XMS_ITS | Clinical Summary ---
Author Organization [facility] Address [address] [place] [address] Care Team Providers Care Validation Intern Name Role Phone Naz Sandhu MD Primary Care Provider [phone] Surgical History Surgery Date Site/Laterality Comments CHOLECYSTECTOMY 10/29/2002 PROCEDURE: HISTORICAL CHOLECYSTECTOMY; COMMENT: For gallstones TUBAL LIGATION 05/01/2004 PROCEDURE: HISTORICAL TUBAL LIGATION OVARIAN CYST REMOVAL 2013 Right PROCEDURE: ID OVARIAN CYSTECTOMY UNI/BI BREAST REDUCTION 2009 Bilateral PROCEDURE: ID BREAST REDUCTION LITHOTRIPSY 2012 Right PROCEDURE: HISTORICAL LITHOTRIPSY; COMMENT: kidney stone OTHER SURGICAL HISTORY PROCEDURE: HISTORICAL D&C; COMMENT: polyp UPPER GASTROINTESTINAL ENDOSCOPY 03/09/2015 PROCEDURE: ID UPPER GI ENDOSCOPY PERFORMED; COMMENT: diffuse gastric erythema with retained bile; H. pylori positive UPPER GASTROINTESTINAL ENDOSCOPY 02/01/2009 PROCEDURE: ID UPPER GI ENDOSCOPY PERFORMED; COMMENT: Normal esophagus, [...] Diabetes: Blood Sugar Control Test (HGBA1C) 01/25/2022 Depression Screening 02/19/2024 COVID-19 Vaccine ( season) 2024 Influenza Vaccine (#1) 2024 , 12/03/2018, 12/04/2017, [...] age to complete this topic Care Teams Validation Intern Relationship Specialty Start Date End Date Naz Sandhu MD [address] [place] [address] PCP - General Internal Medicine 11/06/18
--- OUTSIDE RECORDS SUMMARY | 2024-11-10 17:53 | XMS_ITS | Encounter Summary ---
Author Organization [facility] Address [address] [place] [address] Care Team Providers Care Supervisor Fabrication Department Name Role Phone Vaishali Aguilar MD Primary Care Provider Ciarra Ramos Unavailable Unavailable Naz Sandhu MD Primary Care Provider Unavailabl e Encounter Details Date Type Department Care Team Description 05/11/2016 Release of Information Medical Records [address] [place] [id number] Abstract, Provider Social History Tobacco Use Types Packs/Day Years [...] on filedocumented in this encounter Care Teams Supervisor Fabrication Department Relationship Specialty Start Date End Date Vaishali Aguilar MD PCP - General Internal Medicine 06/29/14 11/05/18 Naz Sandhu MD PCP - General Internal Medicine 11/06/18 [facility] 12/26/12 documented as of this encounter
--- OUTSIDE RECORDS SUMMARY | 2024-11-10 17:53 | XMS_ITS | Encounter Summary ---
Author Organization [facility] Address [address] [facility] [place] [address] Care Team Providers Care Electric Brain Wave Equipment Mechanic Name Role Phone Vaishali Aguilar MD Primary Care Provider Ciarra Ramos Unavailable Unavailable Naz Sandhu MD Primary Care Provider Unavailabl e Encounter Details Date Type Department Care Team Description 06/28/2015 Stock Preparation Supervisor Report Medical Records [address] [place] [address] Dulce Looney [address] [place] [address] Social History Tobacco Use Types Packs/Day Years [...] on filedocumented in this encounter Care Teams Electric Brain Wave Equipment Mechanic Relationship Specialty Start Date End Date Vaishali Aguilar MD PCP - General Internal Medicine 06/29/14 11/05/18 Naz Sandhu MD PCP - General Internal Medicine 11/06/18 [facility] 12/26/12 documented as of this encounter
--- OUTSIDE RECORDS SUMMARY | 2024-11-10 17:53 | XMS_ITS | Encounter Summary ---
Author Organization [facility] Address [address] [place] [address] Care Team Providers Care Commercial Construction Project Manager Name Role Phone Vaishali Aguilar MD Primary Care Provider Ciarra Ramos Unavailable Unavailable Naz Sandhu MD Primary Care Provider Unavailabl e Encounter Details Date Type Department Care Team Description 09/01/2015 Electrical Project Engineer Report Medical Records [address] [place] [address] Monty Jimenez Social History Tobacco Use Types Packs/Day Years [...] on filedocumented in this encounter Care Teams Commercial Construction Project Manager Relationship Specialty Start Date End Date Vaishali Aguilar MD PCP - General Internal Medicine 06/29/14 11/05/18 Naz Sandhu MD PCP - General Internal Medicine 11/06/18 [facility] 12/26/12 documented as of this encounter
--- OUTSIDE RECORDS SUMMARY | 2024-11-10 17:53 | XMS_ITS | Encounter Summary ---
Author Organization [facility] Address [address] [place] [address] Care Team Providers Care Caramel Candy Maker Helper Name Role Phone Vaishali Aguilar MD Primary Care Provider Ciarra Ramos Unavailable Unavailable Naz Sandhu MD Primary Care Provider Unavailabl e Encounter Details Date Type Department Care Team Description 07/28/2015 Compliance Advisor Report Medical Records [address] [place] [address] Social History Tobacco Use Types Packs/Day Years [...] on filedocumented in this encounter Care Teams Caramel Candy Maker Helper Relationship Specialty Start Date End Date Vaishali Aguilar MD PCP - General Internal Medicine 06/29/14 11/05/18 Naz Sandhu MD PCP - General Internal Medicine 11/06/18 [facility] 12/26/12 documented as of this encounter
--- OUTSIDE RECORDS SUMMARY | 2024-11-10 17:53 | XMS_ITS | Encounter Summary ---
Author Organization [facility] Address [address] [place] [address] Care Team Providers Care Medical Librarian Name Role Phone Vaishali Aguilar MD Primary Care Provider Ciarra Ramos Unavailable Unavailable Naz Sandhu MD Primary Care Provider Unavailabl e Encounter Details Date Type Department Care Team Description 10/07/2015 Fluorescent Lighting Model Maker Report Medical Records [address] [place] [address] Dulce Looney [address] [place] [address] Social History Tobacco Use Types Packs/Day Years [...] on filedocumented in this encounter Care Teams Medical Librarian Relationship Specialty Start Date End Date Vaishali Aguilar MD PCP - General Internal Medicine 06/29/14 11/05/18 Naz Sandhu MD PCP - General Internal Medicine 11/06/18 [facility] 12/26/12 documented as of this encounter
--- OUTSIDE RECORDS SUMMARY | 2024-11-10 17:53 | XMS_ITS | Encounter Summary ---
Author Organization [facility] Address [address] [place] [address] Care Team Providers Care Multifocal Lens Assembler Name Role Phone Vaishali Aguilar MD Primary Care Provider Ciarra Ramos Unavailable Unavailable Naz Sandhu MD Primary Care Provider Unavailabl e Encounter Details Date Type Department Care Team Description 03/10/2018 [facility] Medical Records [address] [place] [address] Estrellita Campos MD [address] [place] [address] Social History Tobacco Use Types Packs/Day Years [...] on filedocumented in this encounter Care Teams Multifocal Lens Assembler Relationship Specialty Start Date End Date Vaishali Aguilar MD PCP - General Internal Medicine 06/29/14 11/05/18 Naz Sandhu MD PCP - General Internal Medicine 11/06/18 [facility] 12/26/12 documented as of this encounter
--- OUTSIDE RECORDS SUMMARY | 2024-11-10 17:53 | XMS_ITS | Encounter Summary ---
Author Organization [facility] Address [address] [place] [address] Care Team Providers Care Warping Mill Operator Name Role Phone Vaishali Aguilar MD Primary Care Provider Ciarra Ramos Unavailable Unavailable Naz Sandhu MD Primary Care Provider Unavailabl e Encounter Details Date Type Department Care Team Description 04/13/2017 Power Plant Operators Supervisor Report Medical Records [address] [place] [address] Abstract, Provider Social History Tobacco Use Types [...] on filedocumented in this encounter Care Teams Warping Mill Operator Relationship Specialty Start Date End Date Vaishali Aguilar MD PCP - General Internal Medicine 06/29/14 11/05/18 Naz Sandhu MD PCP - General Internal Medicine 11/06/18 [facility] 12/26/12 documented as of this encounter
--- OUTSIDE RECORDS SUMMARY | 2024-11-10 17:53 | XMS_ITS | Encounter Summary ---
Author Organization [facility] Address [address] [place] [address] Care Team Providers Care Stock Car Driver Name Role Phone Vaishali Aguilar MD Primary Care Provider Ciarra Ramos Unavailable Unavailable Naz Sandhu MD Primary Care Provider Unavailabl e Encounter Details Date Type Department Care Team Description 05/09/2017 Release of Information Medical Records [address] [place] [id number] Abstract, Provider Social History Tobacco Use Types [...] on filedocumented in this encounter Care Teams Stock Car Driver Relationship Specialty Start Date End Date Vaishali Aguilar MD PCP - General Internal Medicine 06/29/14 11/05/18 Naz Sandhu MD PCP - General Internal Medicine 11/06/18 [facility] 12/26/12 documented as of this encounter
--- OUTSIDE RECORDS SUMMARY | 2024-11-10 17:53 | XMS_ITS | Encounter Summary ---
Author Organization [facility] Address [address] [place] [address] Care Team Providers Care Aerial Installer Name Role Phone Vaishali Aguilar MD Primary Care Provider Ciarra Ramos Unavailable Unavailable Naz Sandhu MD Primary Care Provider Unavailabl e Encounter Details Date Type Department Care Team Description 07/11/2016 Alignment Technician Report Medical Records [address] [place] [address] Monty Jimenez Social History Tobacco Use Types [...] on filedocumented in this encounter Care Teams Aerial Installer Relationship Specialty Start Date End Date Vaishali Aguilar MD PCP - General Internal Medicine 06/29/14 11/05/18 Naz Sandhu MD PCP - General Internal Medicine 11/06/18 [facility] 12/26/12 documented as of this encounter
--- OUTSIDE RECORDS SUMMARY | 2024-11-10 17:53 | XMS_ITS | Encounter Summary ---
Author Organization [facility] Address [address] [place] [address] Care Team Providers Care Activities Leader Name Role Phone FordShanita linno Unavailable Unavailable Naz Sandhu MD Primary Care Provider Unavailabl e Reason for Visit * Reason Comments E-prescribe Rx Request Encounter Details Date Type Department Care Team Description 03/01/2019 Refill Physiatry - [place] [address] [place] [address] Nitin Cisneros DO E-prescribe Rx Request Social History Tobacco Use Types Packs/Day Years Used Date Smoking Tobacco: Former Cigarettes 1 2 Q uit: 06/29/2009 Smokeless Tobacco: Never Alcohol Use Standard Drinks/Week Comments No 0 (1 standard drink = 0.6 oz pur e alcohol) Sex Assigned at Date Recorded Not on file documented as of this encounter Miscellaneous Notes * Telephone Encounter - Jaquelin Gracia M.A. - 03/02/2019 8:18 AM EST Last refill 02/05/19 Last refill 02/05/19 Next appointment 05/14/19 documented in this encounter Plan of Treatment Not on file documented as of this encounter Visit Diagnoses Diagnosis Lumbar radiculitis Thoracic or lumbosacral neuritis or radiculitis, unspecified Chronic right-sided low back pain with right-sided sciatica Carpal tunnel syndrome of right wrist Carpal tunnel syndrome documented in this encounter Care Teams Activities Leader Relationship Specialty Start Date End Date Naz Sandhu MD PCP - General Internal Medicine 11/06/18 [facility] 12/26/12 documented as of this encounter
--- OUTSIDE RECORDS SUMMARY | 2024-11-10 17:53 | XMS_ITS | Encounter Summary ---
Author Organization [facility] Address [address] [place] [address] Care Team Providers Care Registered Vascular Technologist (Rvt) Name Role Phone Vaishali Aguilar MD Primary Care Provider Ciarra Ramos Unavailable Unavailable Naz Sandhu MD Primary Care Provider Unavailabl e Encounter Details Date Type Department Care Team Description 11/06/2016 Prune Washer Report Medical Records [address] [place] [address] Nitin Cisneros DO Social History Tobacco Use Types Packs/Day Years [...] on filedocumented in this encounter Care Teams Registered Vascular Technologist (Rvt) Relationship Specialty Start Date End Date Vaishali Aguilar MD PCP - General Internal Medicine 06/29/14 11/05/18 Naz Sandhu MD PCP - General Internal Medicine 11/06/18 [facility] 12/26/12 documented as of this encounter
--- OUTSIDE RECORDS SUMMARY | 2024-11-10 17:53 | XMS_ITS | Encounter Summary ---
Author Organization [facility] Address [address] [facility] [place] [address] Care Team Providers Care Slip Bridge Operator Name Role Phone Vaishali Aguilar MD Primary Care Provider Ciarra Ramos Unavailable Unavailable Naz Sandhu MD Primary Care Provider Unavailabl e Encounter Details Date Type Department Care Team Description 05/24/2015 Business Doc Medical Records [address] [place] [address] Abstract, Provider Social History Tobacco Use Types [...] on filedocumented in this encounter Care Teams Slip Bridge Operator Relationship Specialty Start Date End Date Vaishali Aguilar MD PCP - General Internal Medicine 06/29/14 11/05/18 Naz Sandhu MD PCP - General Internal Medicine 11/06/18 [facility] 12/26/12 documented as of this encounter
--- OUTSIDE RECORDS SUMMARY | 2024-11-10 17:53 | XMS_ITS | Encounter Summary ---
Author Organization [facility] Address [address] [place] [address] Care Team Providers Care Visor Installer Name Role Phone Vaishali Aguilar MD Primary Care Provider Ciarra Ramos Unavailable Unavailable Naz Sandhu MD Primary Care Provider Unavailabl e Reason for Visit * Reason Comments E-prescribe Rx Request Encounter Details Date Type Department Care Team Description 03/09/2018 Refill Physiatry - [place] [address] [place] [address] Nitni Cisneros DO E-prescribe Rx Request Social History [...] Telephone Encounter - Magdalena Boyer L.P.N. - 03/10/2018 8:04 AM EST Last refill 02/03/18 Last visit 12/13/17 Next visit 04/04/18 documented in this encounter Plan of Treatment Not on file documented as of this encounter Visit Diagnoses Diagnosis Lumbar radiculitis Thoracic or lumbosacral neuritis or radiculitis, unspecified Chronic right-sided low back pain with right-sided sciatica Carpal tunnel syndrome of right wrist Carpal tunnel syndrome documented in this encounter Care Teams Visor Installer Relationship Specialty Start Date End Date Vi Aguilar-MD Matt PCP - General Internal Medicine 06/29/14 11/05/18 Naz Sandhu MD PCP - General Internal Medicine 11/06/18 [facility] 12/26/12 documented as of this encounter
--- OUTSIDE RECORDS SUMMARY | 2024-11-10 17:53 | XMS_ITS | Encounter Summary ---
Author Organization [facility] Address [address] [place] [address] Care Team Providers Care Insurance Verification Specialist Name Role Phone Vaishali Aguilar MD Primary Care Provider Ciarra Ramos Unavailable Unavailable Naz Sandhu MD Primary Care Provider Unavailabl e Encounter Details Date Type Department Care Team Description 08/16/2016 Shipping Clerk/Admin Report Medical Records [address] [place] [address] Monty Jimenez Social History Tobacco Use Types [...] on filedocumented in this encounter Care Teams Insurance Verification Specialist Relationship Specialty Start Date End Date Vaishali Aguilar MD PCP - General Internal Medicine 06/29/14 11/05/18 Naz Sandhu MD PCP - General Internal Medicine 11/06/18 [facility] 12/26/12 documented as of this encounter
--- OUTSIDE RECORDS SUMMARY | 2024-11-10 17:53 | XMS_ITS | Encounter Summary ---
Author Organization [facility] Address [address] [place] [address] Care Team Providers Care Organic Chemistry Teacher Name Role Phone Vaishali Aguilar MD Primary Care Provider Ciarra Ramos Unavailable Naz Urena MD Primary Care Provider Unavailabl e Reason for Visit * Reason Onset Date Comments REFERRAL 06/13/2017 gastro Encounter Details Date Type Department Care Team Description 06/13/2017 Telephone Gastroenterology - [address] [address] Darrell Soria MD REFERRAL (gastro) Social History Tobacco Use Types Packs/Day Years Used Date Smoking Tobacco: Former Cigarettes 1 2 Q uit: 06/29/2009 Smokeless Tobacco: Never Alcohol Use Standard Drinks/Week Comments No 0 (1 standard drink = 0.6 oz pur e alcohol) Sex Assigned at Date Recorded Not on file documented as of this encounter Miscellaneous Notes * Telephone Encounter - Darrell Soria MD - 06/13/2017 4:16 PM EDT That is fine. * Telephone Encounter - Salena Ziegler - 06/13/2017 4:04 PM EDT Patient was referred to Gastroenterology re: recent hospitalizatiion at [facility] for colitis, CT showed distal sig thickening, rectun gasceous distension Patient has a f/u appointment with Rito de la o 07/03/17. Pls review and advise. documented in this encounter Plan of Treatment Not on file documented as of this encounter Visit Diagnoses Not on filedocumented in this encounter Care Teams Organic Chemistry Teacher Relationship Specialty Start Date End Date Vaishali Aguilar MD PCP - General Internal Medicine 06/29/14 11/05/18 Naz Sandhu MD PCP - General Internal Medicine 11/06/18 [facility] 12/26/12 documented as of this encounter
== END 2024-11-10 15:10 | disposition home or self-care (01) ==
LOC: HO.HMCC 14:42
PROVIDERS: PCP Internal Medicine; Visit Provider Internal Medicine
DX: E11.69 Type 2 diabetes mellitus with other specified complication (principal); E66.9 Obesity, unspecified; E66.01 Morbid (severe) obesity due to excess calories; Z68.36 Body mass index [BMI] 36.0-36.9, adult; Z63.5 Disruption of family by separation and divorce; E66.812 Obesity, class 2; F41.9 Anxiety disorder, unspecified; F32.A Depression, unspecified; K76.0 Fatty (change of) liver, not elsewhere classified; M54.16 Radiculopathy, lumbar region

== ENCOUNTER → 2024-11-10 14:41 | Outpatient (BNVA) | payer OTHER, SELFPAY | PROVIDERS: PCP Internal Medicine; Visit Provider Internal Medicine | DX: E66.812 Obesity, class 2 (principal); E66.01 Morbid (severe) obesity due to excess calories; E11.69 Type 2 diabetes mellitus with other specified complication; F41.9 Anxiety disorder, unspecified; M51.16 Intervertebral disc disorders with radiculopathy, lumbar region; F32.A Depression, unspecified; K76.0 Fatty (change of) liver, not elsewhere classified; Z68.36 Body mass index [BMI] 36.0-36.9, adult; Z63.5 Disruption of family by separation and divorce | CPT/HCPCS: 83036; 96127 ==

== ENCOUNTER 2025-01-26 07:31 | Outpatient (REF) | payer OTHER, SELFPAY ==
--- OUTSIDE RECORDS SUMMARY | 2025-01-26 07:34 | XMS_ITS | Clinical Summary ---
Author Organization [facility] Address [address] [place] [address] Care Team Providers Care Logistics Team Leader Name Role Phone Naz Sandhu MD Primary Care Provider [phone] Surgical History Surgery Date Site/Laterality Comments CHOLECYSTECTOMY 10/29/2002 PROCEDURE: HISTORICAL CHOLECYSTECTOMY; COMMENT: For gallstones TUBAL LIGATION 05/01/2004 PROCEDURE: HISTORICAL TUBAL LIGATION OVARIAN CYST REMOVAL 2013 Right PROCEDURE: [place] OVARIAN CYSTECTOMY UNI/BI BREAST REDUCTION 2009 Bilateral PROCEDURE: [place] BREAST REDUCTION LITHOTRIPSY 2012 Right PROCEDURE: HISTORICAL LITHOTRIPSY; COMMENT: kidney stone OTHER SURGICAL HISTORY PROCEDURE: HISTORICAL D&C; COMMENT: polyp UPPER GASTROINTESTINAL ENDOSCOPY 03/09/2015 PROCEDURE: [place] UPPER GI ENDOSCOPY PERFORMED; COMMENT: diffuse gastric erythema with retained bile; H. pylori positive UPPER GASTROINTESTINAL ENDOSCOPY 02/01/2009 PROCEDURE: [place] UPPER GI ENDOSCOPY PERFORMED; COMMENT: Normal esophagus, [...] accident; quadr iplegic Daughter Alive 2002; Joi; he althy Father (Age 62) Maternal Grandfather Maternal Grandmother Mother Alive diabetes Paternal Grandfather Paternal Grandmother Sister 1 Sister 2 Sister 3 Alive dm Sister 4 Alive dm Son Alive 2004; Miko; omar chapman Social History Tobacco Use Types Packs/Day Years Used Date Smoking Tobacco: Former Cigarettes 1 Q uit: 06/29/2009 Smokeless Tobacco: Never Alcohol Use Standard Drinks/Week Comments No 0 (1 standard drink = 0.6 oz pur e alcohol) Comments Unknown Sex and Gender Information Value Date Recorded Sex Assigned at Not on file Legal Sex Female 12:24 AM EST Gender Identity Not on file Sexual Orientation Not on file Plan of Treatment Health Maintenance Due Date Last Done Comments Breast Cancer Screening 1982 Hepatitis B Vaccines (1 of 3 - 19+ 3-dose series) 2001 Cervical Cancer Screening: Pap Smear 08/02/2003 HPV Vaccines (1 - 3-dose SCDM series) 2009 Depression Screening 02/19/2024 COVID-19 Vaccine ( - 2024- season) 2024 Influenza Vaccine (#1) 2024 0, 12/03/2018, 12/04/2017, Additional history exists DTaP,Tdap,and Td Vaccines (3 - Td or Tdap) 01/23/2026 01/24/2016, 03/19/2007 RSV Immunization Adult Patients (1 - 1-dose 75+ series) 2057 Hepatitis A Vaccines Aged Out 01/17/2009 No long er eligible based on patient's age to complete this topic Pneumococcal Vaccine: Pediatrics (0 to 5 Years) [...] age to complete this topic Care Teams Logistics Team Leader Relationship Specialty Start Date End Date Naz Sandhu MD [address] [place] [id number] PCP - General Internal Medicine 11/06/18
[2025-01-26 07:49] LABS: MANUAL DIFF FLAG NO
[2025-01-26 08:01] LABS: Hematocrit 36.5 % (37.0-47.0); Hemoglobin 12.5 g/dl (12.0-16.0); Imm Gran Abs Auto 0.01 X10*3/uL (0.00-0.03); Imm Gran Pct Auto 0.2 % (0.0-0.4); Lymphocytes Absolute Auto 2.4 X10*3/uL (1.2-4.9); Mean Corpuscular HGB Conc 34.2 g/dl (31.0-35.0); Mean Corpuscular Hemoglobin 27.4 pg (27.0-33.0); Mean Corpuscular Volume 79.9 fL (80.0-98.0); NRBC Abs Auto 0.000 X10*3/uL (0.0-0.012); NRBC Pct Auto 0.0 /100WBC (0.0-0.2); Platelet Count 260 X10*3/uL (160-400); Red Blood Count 4.57 X10*6/uL (4.20-5.50); White Blood Count 6.1 X10*3/uL (4.8-10.8)
[2025-01-26 08:10] LABS: Appearance Urine Clear; Glucose Urine UA Negative (Negative); PH 5.5 (5.0-9.0); Specific Gravity - Urine 1.025 (1.005-1.025); UMIC TRIGGER UACC YES
[2025-01-26 08:38] LABS: Alanine Aminotransferase 81 U/L (0-31); Albumin Level 4.5 g/dL (3.5-5.0); Alkaline Phosphatase 78 U/L (39-117); Anion Gap 10 (12-20); Aspartate Amino Transferase 53 U/L (5-31); Blood Urea Nitrogen 8 mg/dL (9-16); Calcium 9.2 mg/dL (8.4-10.2); Carbon Dioxide 28 mmol/L (22-29); Chloride 109 mmol/L (96-108); Cholesterol 162 mg/dL (<200); Estimated Glomerular Filt Rate > 60; HDL Cholesterol 43 mg/dL (>40); Potassium 3.9 mmol/L (3.3-5.1); Sodium 143 mmol/L (135-145); Total Protein 7.5 g/dL (6.5-8.0); Triglycerides 104 mg/dL (<150)
[2025-01-26 09:07] LABS: Microalbum/Creatinine Ratio Ur 10.3 ug/mg cr (<30)
== END 2025-01-26 07:32 | disposition home or self-care (01) ==
LOC: HO.LAB 07:31
PROVIDERS: PCP Internal Medicine; Visit Provider Internal Medicine
DX: E11.69 Type 2 diabetes mellitus with other specified complication (principal); E66.812 Obesity, class 2; K76.0 Fatty (change of) liver, not elsewhere classified; F41.9 Anxiety disorder, unspecified; F32.A Depression, unspecified; Z68.36 Body mass index [BMI] 36.0-36.9, adult
CPT/HCPCS: 36415; 80053; 80061; 81001; 81003; 82043; 82570; 83036; 84443; 85025

== ENCOUNTER 2025-01-27 15:18 | Outpatient (AMB) | payer OTHER, SELFPAY ==
[2025-01-27 15:23] VITALS: BP 128/72; PULSE 90; O2SAT 99; BMI 37.1
--- NOTE | 2025-01-27 15:23 | A.OFFPC_ITS ---
Vital Signs 01/27/25 15:23 Height 5 ft 4 in Weight 216 lb BMI 37.1 BP 128/72 Blood Pressure Location Lt brachial Position Sitting Pulse 90 Pulse Source Pulse Oximeter Pulse Oximetry (%) 99 Intake Visit Reasons: Annual PE Allergies shellfish derived Allergy (Severe, Verified 01/27/25 15:23) Anaphylaxis cefazolin (CEFAZOLIN) Allergy (Intermediate, Verified 01/27/25 15:23) LOCALIZED ITCHING AT INJECTION SITE cephalexin (CEPHALEXIN) Allergy (Intermediate, Verified 01/27/25 15:23) Itching metronidazole (Flagyl) Allergy (Intermediate, Verified 01/27/25 15:23) Hives/itching Medication List - Last Reconciled 01/27/25 by Naz Sandhu MD alcohol swabs (Alcohol Prep Pads) 1 pad topical DAILY blood sugar diagnostic (FreeStyle Lite Strips) CHECK BLOOD SUGAR DAILY blood-glucose meter (FreeStyle Lite Meter kit) patient to check blood sugar daily dulaglutide (Trulicity) 1.5 mg (0.5 mL) subcut QWEEK 30 days epinephrine (EpiPen) 0.3 mg (0.3 mL) IM Q10M PRN 90 days escitalopram oxalate (Lexapro) 10 mg PO DAILY gabapentin 300 mg PO BID lancets (FreeStyle Lancets) check blood sugar daily Tobacco use date assessed: 08/04/24 Dental Screening Dental Screen Date: 08/04/24 HPI Annual PE HPI Details History of Present Illness The patient is a 44 year old female presenting with a physical examination. Hypertension: - The patient's blood pressure is well-c ontrolled with a reading of 128/72 mmHg. Obesity: - The patient has an elevated BMI of 37. 1 and is trying to lose weight. - She reports difficulty with weight man agement due to time constraints and lat e-night eating habits, often skipping breakfast and lunch. - She feels her weight is stagnant despi te walking all day and eating pre-made salads. Type 2 Diabetes Mellitus: - The patient is taking Trulicity 1.5 mg for diabetes. - Recent lab results from the previous d ay showed a fasting sugar of 128 and a hemoglobin A1c of 6.9, indicating her diabetes is well-controlled. - She reports no side effects from [facility] [employer]. Anxiety and Depression: - The patient takes Lexapro (escitalopra m) 10 mg for anxiety and depression. - She reports that her anxiety is better with the medication, which has helped reduce her eating. Back Pain: - The patient sees a pain management spe cialist at . - She was prescribed gabapentin 300 mg f or back pain. - She has not been taking gabapentin due to a change in her health plan and the prescription not being sent. - Previously, she took two tablets (600 mg) at night, which was helping. - back pain post-surgery as manageable. Elevated Liver Enzymes and Fatty Liver: - Recent labs showed slightly elevated l iver enzymes, which have worsened compared to July of this year. - The patient has a known diagnosis of f atty liver in her chart. - There is no record of a prior abdomina l ultrasound. Enlarged Thyroid: - A physical exam revealed a slightly en larged thyroid. - The patient reports no prior thyroid u ltrasound has been performed. - Her thyroid function tests are normal. - She has a family history of thyroid is sues, as her mother took levothyroxine. Medical History: - Hypertension. - Obesity. - Type 2 Diabetes Mellitus. - Anxiety and depression. - Fatty liver disease. - History of cysts and fibroids leading to hysterectomy. - History of 2-3 breast biopsies on the left breast. - Negative for Hepatitis C. Surgical History: - Complete hysterectomy due to bleeding, cysts, and fibroids. - Breast reduction surgery, performed a long time ago. Social History: - Diet: Reports skipping breakfast and l unch, eating a large meal at night. Has tried pre-made salads. Reports she stopped buying cookies to avoid eating them. - Exercise/Activity: Reports walking thr oughout the day at work. - Habits: Reports going to muslim. Family History: - Mother: History of thyroid problems, t ook levothyroxine. from cirrhosis secondary to Hepatitis C. Health Maintenance - Annual physical exam performed. - Mammogram: Due for mammogram. An order was placed in March of this year, but the patient believes she already had it done after changing insurance. 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 - Hepatitis C screening: Previously test ed and was negative. - Immunizations: Agreed to receive the i nfluenza vaccine today. Due for a hepatitis B vaccine. - Weight management: Discussed challenge s with weight loss, including eating patterns. Advised to meal prep on weekends, focus on protein, and drink warm chicken broth before and with meals. Patient Instructions - Continue taking your current medicatio ns as prescribed. - Call to follow up on your mammogram ap pointment. - The office will call you to schedule a n ultrasound of your liver and thyroid. - Refills for Trulicity, escitalopram, a nd gabapentin will be sent to the [facility]. - When you restart gabapentin, begin wit h one tablet at night instead of two. - For weight management, try to prepare meals over the weekend. Drink warm chicken broth before and with your meals, and make sure to include protein like fish, turkey, or chicken. - You will receive your flu shot today i n the office. - Schedule a follow-up appointment in 3 months for medication refills and in one year for a physical exam. Review of Systems - General: No fever no chills - Neurological: No headaches no dizzin ess - Ear nose throat: No sore throat no hearing difficulty no ear pain - Cardiovascular: No syncope, no chest pain, no palpitations - Gastrointestinal: No nausea vomiting or diarrhea - Endocrine: No polyuria polydipsia no heat intolerance - Genitourinary: No dysuria - Skin: No new complaints Physical Exam General: Cooperative, healthy appearing, comfortable, no acute distress Orientation: Patient oriented x3 Head: Normal to inspection Ears: Within normal limit visually Nose: Normal external nose present Face and sinus: Normal facial exam Eyes: Appearance normal, extraocular movement intact pupils reactive Neck: Normal visual inspection and supple Respiratory: Normal respiratory effort and able to speak in complete sentences. Clear to auscultation, no stridor Cardiovascular: S1 and S2 RRR Breast exam bengin GI: Normal to inspection. Soft to palpation and nontender Skin: Turgor normal, no acute findings. Patient reports red dent, possibly related to diabetes Neuro: Patient oriented x3, motor sensory intact, balance intact, tandem pass Extremities: Normal to inspection . [facility] Medical History Anxiety, generalized GERD (gastroesophageal reflux disease) Renal calculi Acute nephritic syndrome, minor glomerular abnormality Fatty liver Back pain Diabetes mellitus type 2 in obese Major depression, recurrent PAD (peripheral artery disease) Recurrent boils Surgical History History of esophagogastroduodenoscopy (EGD) H/O colonoscopy History of carpal tunnel surgery of right wrist Hx of cholecystectomy Hx of cystoscopy History of dilatation and curettage S/P MARYA (total abdominal hysterectomy) Social History Housing: House Are you a primary nursing care partner to a significant other at home: No Do you presently have visiting nurse or other home services: No Alcohol intake: never Comment: counts correct Patient Tobacco Use Status: Never used Tobacco e-Cigarette/Vaping Use: Never Used Second Hand Smoke Exposure: Yes (as a child) Current occupational status: employed Cognitive needs: No Hearing needs: No Vision needs: No Questionnaire Thrive Questionnaire Date Thrive assessed: 03/24/24 I am a: Patient What is your living situation today?: I have a steady place to live Within the past 12 months, did the food you bought not last and you didn't have the money to get more?: Sometimes True Within the past 12 months, did you worry whether your food would run out before you got money to buy more?: Sometimes True Do you have trouble paying for medicines?: No Do you have trouble getting transportation to medical appointments?: No Do you have trouble paying your heating and electricity bill?: Yes Do you have trouble taking care of your child, family member or friend?: No Do you have trouble with day-to-day activities such as bathing, preparing meals, shopping, managing finances, etc.?: No Are you currently unemployed and looking for a job?: No Are you interested in more education?: No Please select the resources that you would like help with: None Currently or been in a relationship where the following occur: No concerns re ported THRIVE Score: 3 MICHAEL-7 AMB Questionnaire MICHAEL-7 Date MICHAEL - 7 assessed: 03/27/24 Source: Developed by Drs. eKndrick Israel, Destiny Issa, Krish Harkins and colleagues, with an educational charline from [employer]. Physical exam (Primary Care) Vital Signs: Last Vital Signs Pulse 90 01/27/25 15:23 BP 128/72 01/27/25 15:23 Pulse Ox 99 01/27/25 15:23 BMI result Body Mass Index 37.1 Tobacco/Smoking Status: Tobacco use Status Tobacco use date assessed 08/04/24 01/27/25 15:24 Patient Tobacco Use Status Never used Tobacco 01/27/25 15:24 e-Cigarette/Vaping Use Never Used 01/27/25 15:24 Thrive Assessment: Date of Thrive Assessment Date Thrive assessed 03/24/24 01/27/25 15:24 Currently or been in a relationship where the following occur: No concerns reported Office Procedures Flu Questionnaire Does the patient have a severe egg allergy?: No Does the patient have severe life threatening allergies?: No Does the patient have a fever or illness today?: No Has the patient ever had Guillain-Leeton Syndrome?: No Has the patient ever had any past reaction to a flu shot?: No Immunizations Fluarix [id number] (PF) 45 mcg (15 mcg x 3)/0.5 mL IM syringe Performing Provider: Naz Sandhu MD Performing Location: [facility] Administered by: Jordon Gonzalez CMA on 01/27/25 16:02 Dose Route Admin Location Dispensed Lot Number Expiration Date NDC Home Paraprofessional 0.5 mL IM Right Deltoid 0.5 mL [id number] 08/17/25 [id number] [employer] VIS Given Date VIS Provided VIS Publication Date 01/27/25 Single Vaccine 24 Eligibility Eligibility Date Funding Source Not [facility] Eligible 01/27/25 Private Coding Level of Care Code Est Pt Level 3 (41164) Est Pt Prev Care 40-64y(11680) Diagnoses Encounter for general adult medical examination with abnormal findings Z00.01 LFT elevation R79.89 Palpable thyroid E04.9 Right lumbar radiculitis M54.16 Class 2 severe obesity due to excess calories with serious comorbidity and body mass index (BMI) of 36.0 to 36.9 in adult E66.812; E66.01; Z68.36 Body mass index: BMI 36.0-36.9 Obesity classification: adult class 2 (BMI 35 - 39.9) Serious obesity comorbidity presence: with serious comorbidity Diabetes mellitus type 2 in obese E11.69; E66.9 Anxiety, generalized F41.1 Assessment & Plan Assessment & Plan (1) Encounter for general adult medical examination with abnormal findings: Code(s): Z00.01 - Encounter for general adult medical examination with abnormal findings Category: Medical (2) LFT elevation: Code(s): R79.89 - Other specified abnormal findings of blood chemistry Category: Medical (3) Palpable thyroid: Code(s): E04.9 - Nontoxic goiter, unspecified Category: Medical (4) Right lumbar radiculitis: Code(s): M54.16 - Radiculopathy, lumbar region Category: Medical (5) Obesity due to excess calories: Code(s): E66.09 - Other obesity due to excess calories Category: Medical Qualifiers: Body mass index: BMI 36.0-36.9 Obesity classification: adult class 2 (BMI 35 - 39.9) Serious obesity comorbidity presence: with serious comorbidity Qualified Code(s): E66.812 - Obesity, class 2; E66.01 - Morbid (severe) obesity due to excess calories; Z68.36 - Body mass index [BMI] 36.0-36.9, adult (6) Diabetes mellitus type 2 in obese: Comment: taking glipizide & actos-dx age 27-checks glucose occasionally-usually ~ 135 Code(s): E11.69 - Type 2 diabetes mellitus with other specified complication; E66.9 - Obesity, unspecified Category: Medical (7) Anxiety, generalized: Code(s): F41.1 - Generalized anxiety disorder Category: Medical Plan Health Maintenance - Annual physical exam performed. - Mammogram: Due for mammogram. An order was placed in March of this year, but the patient believes she already had it done after changing insurance. 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 - Hepatitis C screening: Previously tested and was negative. - Immunizations: Agreed to receive the influenza vaccine today. Due for a hepatitis B vaccine. - Weight management: Discussed challenges with weight loss, including eating patterns. Advised to meal prep on weekends, focus on protein, and drink warm chicken broth before and with meals. Patient Instructions - Continue taking your current medications as prescribed. - Call to follow up on your mammogram appointment. - The office will call you to schedule an ultrasound of your liver and thyroid. - Refills for Trulicity, escitalopram, and gabapentin will be sent to the [facility]. - When you restart gabapentin, begin with one tablet at night instead of two. - For weight management, try to prepare meals over the weekend. Drink warm chicken broth before and with your meals, and make sure to include protein like fish, turkey, or chicken. - You will receive your flu shot today in the office. - Schedule a follow-up appointment in 3 months for medication refills and in one year for a physical exam. . Orders: Orders US thyroid 01/27/25 E04.9 - Nontoxic goiter, unspecified Influenza [id number] Immunization 01/27/25 Z23 - Encounter for immunization US abdomen limited 01/27/25 R79.89 - Other specified abnormal findings of blood chemistry Medications: Changed From gabapentin Take 1 cap at bedtime for 10 days. If well tolerated, increase to 1 tab twice daily 300 mg PO BID 60 caps 0RF To gabapentin 600 mg (2 x 300 mg) PO .qhs 180 caps 0RF 90 days Refilled dulaglutide (Trulicity) 1.5 mg (0.5 mL) subcut QWEEK 2.5 mL 2RF 30 days escitalopram oxalate (Lexapro) 10 mg PO DAILY 90 tabs 0RF
--- OUTSIDE RECORDS SUMMARY | 2025-01-27 23:50 | XMS_ITS | Encounter Summary ---
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 Name Role Phone Vaishali Aguilar MD Primary Care Provider Ciarra Ramos Unavailable Unavailable Naz Sandhu MD Primary Care Provider Unavailabl e Reason for Visit * Reason Onset Date Comments Medical Records 05/01/2017 Encounter Details Date Type Department Care Team Description 05/01/2017 Telephone OBGYN - [address] [place] [address] Ramez Valles MD Medical Records Social History Tobacco Use Types Packs/Day Years Used Date Smoking Tobacco: Former Cigarettes 1 2 Q uit: 06/29/2009 Smokeless Tobacco: Never Alcohol Use Standard Drinks/Week Comments No 0 (1 standard drink = 0.6 oz pur e alcohol) Sex Assigned at Date Recorded Not on file documented as of this encounter Miscellaneous Notes * Telephone Encounter - Yana Orozco - 05/01/2017 9:09 AM EDT Pt signed KARIME for [facility] charge master analyst, faxed accordingly documented in this encounter Plan of Treatment Not on file documented as of this encounter Visit Diagnoses Not on filedocumented in this encounter Care Teams Boilerhouse Mechanic Relationship Specialty Start Date End Date Vaishali Aguilar MD PCP - General Internal Medicine 06/29/14 11/05/18 Naz Sandhu MD PCP - General Internal Medicine 11/06/18 [facility] 12/26/12 documented as of this encounter
--- OUTSIDE RECORDS SUMMARY | 2025-01-27 23:50 | XMS_ITS | Clinical Summary ---
Author Organization [facility] Prior to 12/20/2023 Address [address] [facility] [place] [address] Care Team Providers Care Hollow Ware Maker Name Role Phone Ciarra Goddard Unavailable Unavailable Naz Sandhu MD Primary Care Provider Unavailabl e Allergies Active Allergy Reactions Severity Noted Date Comments Cephalexin Itching/Pruritus 08/15/2014 Medications Medication Sig Dispensed Refills Start Date End Date Status glucose monitoring kit (FREESTYLE) monitoring kit Dispense 1 glucometer kit. 1 Kit 0 01/24/2016 Active FREESTYLE LANCETS Misc 1 Device by Does not apply route 4 times daily. 200 Each 5 01/24/2016 Active Blood Glucose Calibration (FREESTYLE CONTROL SOLUTION) Liquid 1 Each by In Vitro route daily. 1 Each 5 01/24/2016 Active FREESTYLE LITE strip Apply 1 Strip topically 4 times daily. 200 Strip 5 01/24/2016 Active pantoprazole (PROTONIX) 20 MG tablet TAKE 1 TABLET BY MOUTH EVERY DAY 30 Tab 5 10/22/2017 Active glipiZIDE (GLUCOTROL) 5 MG tablet Take 5 mg by mouth 2 times daily (before meals). 0 Active cyclobenzaprine (FLEXERIL) 10 MG tabletIndications:Yaritza mbar radiculitis,Chronic right-sided low back pain with right-sided sciatica,Carpal tunnel syndrome of right wrist Take 1 Tab by mouth 3 times daily as needed for Muscle spasms for up to 30 days. 90 Tab 0 11/26/2019 Active Active Problems Patient Care Coordination No te Formatting of this note is d ifferent from the original. Checking Your Blood Sugars Please check your blood sugars every day. Please check your sugars at the following times of day: before breakfast and after dinner Your Blood Sugar Goals Pre Meal: 90-130 2 hours after meals: 110-160 Bedtime: 110-150 Use the Results Bring your glucometer to every appointment Write your fingerstick blood sugars down on a log sheet or record book. Bring them to your appointment Look for patterns in the numbers. The results help you and your provider make decisions about your diabetes treatment plan. Your Results and your Goals Your Result / Date of Completion Your Goal / How Often to Assess Component Value Date HGBA1C 7.7 12/29/2014 Less than 7% --- 2-4 times per year BP Readings from Last 1 Encounters: 04/13/15 92/60 Less than 140/90 --- once per year Component Value Date MALBCR 18.3 07/01/2014 Less than 30 --- once per year Component Value Date LDL 111 07/01/2014 Less than 100 --- once per year Wt Readings from Last 1 Encounters: 04/13/15 203 lb 3.2 oz (92.171 kg) Your goal weight by next visit: 190 --- reassess 2-4 times a year Health Maintenance Due Topic Date Due Diabetes: Annual Eye Exam 2000 Diabetes: Annual Foot Exam 2000 Diabetes: Annual Care Plan 2000 Pneumovax For High Risk Patients (##1) 2000 Baseline Health Exam 18-39 2001 Dtap/tdap/td (##2 - Tdap) 04/16/2007 Influenza (##1 of 1) 10/19/2014 Your Action Plan Check blood glucose as directed and write down all results. Check feet for sores every day Continue to work on weight loss with a goal of losing 2-4 pounds per month Increase physical activity Contact me if you experience any barriers to care such as inability to purchase your medication, difficulty getting to your appointments or difficulty understanding your care plan When to Call your Healthcare Provider If your blood sugar falls below 70 and you do not know why or you become unconscious If you are sick and unable to take liquids because or nausea or vomiting If you have a fever over 101 If your blood sugar is 300 or higher on greater than 3 separate occasions during the same week If you are just unsure what to do Educational Resources [place] [employer] (www.diabetes.org) Centers for Disease Control and Prevention (www.cdc.gov/diabetes) This care plan was created in collaboration with Albert Zamora on 04/13/2015 Problem Noted Date Nephrolithiasis 10/01/2018 Menorrhagia with regular cycle 8 Intermenstrual bleeding 01/27/2018 Endometrial polyp 01/27/2018 Last Assessment & Plan: Reviewed findings. Possibly on previous US as well. Given heavy menstrual bleeding and intermenstrual spotting, recommended hysteroscopic polypectomy, D&C to rule out hyperplasia or malignancy and to help with bleeding. Given she has had a polyp in the past, I also recommended she consider Mirena IUD to prevent recurrence and keep periods checker dump grounds. She will consider and return to discuss further at pre-op. Constipation 01/27/2018 Last Assessment & Plan: Not clear, but may be cause of LLQ pain. Will try empiric therapy. LLQ pain 01/27/2018 Last Assessment & Plan: Reviewed with Albert that based on ER evaluation, no evidence of acute pathology causing pain. She was counseled that commonly LLQ pain is a symptoms of constipation. She was encouraged to consider trying BID Senna to see if her sx improve. She agrees. Rx sent. Type 2 diabetes mellitus wit h diabetic mononeuropathy, without long-term current use of insulin 10/26/2017 Last Assessment & Plan: Pt will go to IM to make follow up appt today as it has been ~ 6 mos since last. Obesity (BMI 30.0-34.9) 05/02/2017 Carpal tunnel syndrome of right wrist Elevated liver enzymes 07/04/2016 Fatty liver 12/29/2014 Overview: U/S 2008. Mildly elevated LFTs. MRSA (methicillin resistant staph aureus ) culture positive 08/15/2014 Overview: Shoulder abscess 08/01 Allergic rhinitis 08/15/2014 History of kidney stones 08/15/2014 Overview: lithotripsy Migraine 06/29/2014 Back pain 06/29/2014 History of Helicobacter pylori infection 01/18/2009 Overview: TX with PrevPac GERD (gastroesophageal reflux disease) 1 03/19/2008 Resolved Problems Problem Noted Date Resolved Date DM type 2, uncontrolled, with neuropathy 017 10/26/2017 Type 2 diabetes mellitus wit hout complication, without long-term current use of insulin 05/09/2016 09/20/2016 Overview: Being followed by Dr. wolf Immunizations Name Administration Dates Next Due Hepatitis-A (>19YRS) 01/17/2009,01/17/200907/17 Influenza (> 6 Months) 01/24/2016,02/02/2014 PPD-RBMG 11/30/2015 Pneumoccoccal(Adult) Polysaccharide PPSV23 05/19 TD (STATE SUPPLIED FOR ADULTS AND CHILDREN) 02/20 Tdap 01/24/2016 Family History Medical History Relation Name Comments AR Father (ESRD, diabetes) Diabetes Mother Diabetes Sister 3 Diabetes Sister 4 Blindness Negative Hx CA Breast Negative Hx CA Colon Negative Hx CA Ovarian Negative Hx Cataract Negative Hx Glaucoma Negative Hx Macular Degeneration Negative Hx Strabismus Negative Hx Uterine Cancer Negative Hx Relation Name Status Comments Brother 1 Alive healthy Brother 2 Alive healthy Brother 3 accident; quadr iplegic Daughter Alive 2002; Joi; he althy Father (Age 62) Maternal Grandfather Maternal Grandmother Mother Alive diabetes Paternal Grandfather Paternal Grandmother Sister 1 Alive dm Sister 2 Alive dm Sister 3 Sister 4 Son Alive 2004; Miko; omar chapman Social History Tobacco Use Types Packs/Day Years Used Date Smoking Tobacco: Former Cigarettes 1 2 Q uit: 06/29/2009 Smokeless Tobacco: Never Tobacco Cessation:Counseling Given: No Alcohol Use Standard Drinks/Week Comments No 0 (1 standard drink = 0.6 oz pur e alcohol) Sex Assigned at Date Recorded Not on file Last Filed Vital Signs Vital Sign Reading Time Taken Comments Blood Pressure 110/70 03/13/2019 9:23 AM EST Pulse 76 03/13/2019 9:23 AM EST Temperature 36.5 C (97.7 F) 08/14/2018 3:34 PM EDT Respiratory Rate 03/13/2019 9:23 AM EST Oxygen Saturation 100% 07/17/2017 9:09 AM EDT Inhaled Oxygen Concentration - - Weight 93.3 kg (205 lb 9.6 oz) 02/05/2019 8:07 A M EST Height 165.1 cm (5' 5 ) 02/05/2019 8:07 AM EST Body Mass Index 34.21 02/05/2019 8:07 AM EST Plan of Treatment Health Maintenance Due Date Last Done Comments Covid-19 Vaccine (#1) 01/31/1983 DIABETES: ANNUAL EYE EXAM 03/01/2017 03/01/2016 CERVICAL CANCER SCREENING 04/01/20172014 (External Completion of test per patient (Patient reports normal results)) DIABETES: ANNUAL URINE PROTE IN TEST (MICROALBUMIN) 07/03/2017 07/03/2016, 04/13/2015, 07/01/2014 DIABETES: ANNUAL FOOT EXAM 09/20/2017 09/20/2016, DIABETES: BLOOD SUGAR CONTRO L TEST (HGBA1C) 10/26/2017 07/26/2017, 04/22/2017, 09/20/2016, Additional history exists DIABETES/HEART DISEASE: ATA AL CHOLESTEROL (LDL) 04/22/2018 04/22/2017, 01/24/2016, 04/13/2015, Additional history exists BASELINE HEALTH EXAM 40-64 2022 09/20/2016, MAMMOGRAM 2022 BMI CHECK/ADVISE 02/19/2024 02/05/2019, , 09/19/2018, Additional history exists DEPRESSION SCREENING/FOLLOWUP 02/19/2024 SOCIAL NEEDS SCREENING 02/19/2024 INFLUENZA (#1) 2024 11/22/2016 (Exte rnal Completion of Vaccination per patient), 01/24/2016, 11/18/2014 (External Completion of Vaccination per patient), Additional history exists DTAP/TDAP/TD (2 - Td or Tdap) 01/23/2026 01/24/2016, 03/19/2007 PNEUMOCOCCAL VACCINE FOR HIG H RISK PATIENTS (#2) 08/02/2047 05/20/2015 Care Teams Hollow Ware Maker Relationship Specialty Start Date End Date Naz Sandhu MD PCP - General Internal Medicine 11/06/18 [facility] 12/26/12
--- OUTSIDE RECORDS SUMMARY | 2025-01-27 23:50 | XMS_ITS | Encounter Summary ---
Author Organization [facility] Prior to 12/20/2023 Address [address] [place] [address] Care Team Providers Care Supervisor Kennel Name Role Phone Vaishali Aguilar MD Primary Care Provider Ciarra Ramos Unavailable Unavailable Naz Sandhu MD Primary Care Provider Unavailabl e Encounter Details Date Type Department Care Team Description 08/16/2016 Solar Tech Report Medical Records [address] [place] [address] Monty Jimenez Social History Tobacco Use Types [...] filedocumented in this encounter Care Teams Supervisor Kennel Relationship Specialty Start Date End Date Vaishali Aguilar MD PCP - General Internal Medicine 06/29/14 11/05/18 Naz Sandhu MD PCP - General Internal Medicine 11/06/18 [facility] 12/26/12 documented as of this encounter
--- OUTSIDE RECORDS SUMMARY | 2025-01-27 23:50 | XMS_ITS | Encounter Summary ---
Author Organization [facility] Prior to 12/20/2023 Address [address] [place] [address] Care Team Providers Care Rocket Assembly Operator Name Role Phone Vaishlai Aguilar MD Primary Care Provider Ciarra Ramos Unavailable Unavailable Naz Sandhu MD Primary Care Provider Unavailabl e Encounter Details Date Type Department Care Team Description 10/07/2015 Register In Chancery Report Medical Records [address] [place] [address] Dulce Looney [address] [place] [address] Social History Tobacco Use Types Packs/Day Years [...] on filedocumented in this encounter Care Teams Rocket Assembly Operator Relationship Specialty Start Date End Date Vaishali Aguilar MD PCP - General Internal Medicine 06/29/14 11/05/18 Naz Sandhu MD PCP - General Internal Medicine 11/06/18 [facility] 12/26/12 documented as of this encounter
--- OUTSIDE RECORDS SUMMARY | 2025-01-27 23:50 | XMS_ITS | Encounter Summary ---
Author Organization [facility] Prior to 12/20/2023 [facility] [address] [facility] [place] [address] Care Team Providers Care Fish Grader Name Role Phone Vaishali Aguilar MD Primary Care Provider Ciarra Ramos Unavailable Unavailable Naz Sandhu MD Primary Care Provider Unavailabl e Encounter Details Date Type Department Care Team Description 08/12/2017 Release of Information Medical Records [address] [place] [id number] Abstract, Provider Social History Tobacco Use Types [...] on filedocumented in this encounter Care Teams Fish Grader Relationship Specialty Start Date End Date Vaishali Aguilar MD PCP - General Internal Medicine 06/29/14 11/05/18 Naz Sandhu MD PCP - General Internal Medicine 11/06/18 [facility] 12/26/12 documented as of this encounter
--- OUTSIDE RECORDS SUMMARY | 2025-01-27 23:50 | XMS_ITS | Encounter Summary ---
Author Organization [facility] Prior to 12/20/2023 Address [address] [place] [address] Care Team Providers Care Technician Submarine Cable Equipment Name Role Phone Vaishali Aguilar MD Primary Care Provider Ciarra Ramos Unavailable Unavailable Naz Sandhu MD Primary Care Provider Unavailabl e Encounter Details Date Type Department Care Team Description 03/02/2015 Telephone Gastroenterology - [address] [address] Darrell Soria MD Social History Tobacco Use [...] on filedocumented in this encounter Care Teams Technician Submarine Cable Equipment Relationship Specialty Start Date End Date Vaishali Aguilar MD PCP - General Internal Medicine 06/29/14 11/05/18 Naz Sandhu MD PCP - General Internal Medicine 11/06/18 [facility] 12/26/12 documented as of this encounter
--- OUTSIDE RECORDS SUMMARY | 2025-01-27 23:50 | XMS_ITS | Encounter Summary ---
Author Organization [facility] Prior to 12/20/2023 Address [address] [place] [address] Care Team Providers Care Child Development Professor Name Role Phone Vaishali Aguilar MD Primary Care Provider Ciarra Ramos Unavailable Unavailable Naz Sandhu MD Primary Care Provider Unavailabl e Encounter Details Date Type Department Care Team Description 11/02/2015 Roofing Contractor Report Medical Records [address] [place] [address] Dulce Looney [address] [place] [address] Social History Tobacco Use Types Packs/Day Years [...] on filedocumented in this encounter Care Teams Child Development Professor Relationship Specialty Start Date End Date Vaishali Aguilar MD PCP - General Internal Medicine 06/29/14 11/05/18 Naz Sandhu MD PCP - General Internal Medicine 11/06/18 [facility] 12/26/12 documented as of this encounter
--- OUTSIDE RECORDS SUMMARY | 2025-01-27 23:50 | XMS_ITS | Encounter Summary ---
Author Organization [facility] Prior to 12/20/2023 Address [address] [place] [address] Care Team Providers Care Building Principal Name Role Phone Vaishali Aguilar MD Primary Care Provider Ciarra Ramos Unavailable Unavailable Naz Sandhu MD Primary Care Provider Unavailabl e Encounter Details Date Type Department Care Team Description 04/13/2017 Locum [employer] Hospitalist Report Medical Records [address] [place] [id number] Abstract, Provider Social History Tobacco Use Types [...] on filedocumented in this encounter Care Teams Building Principal Relationship Specialty Start Date End Date Vaishali Aguilar MD PCP - General Internal Medicine 06/29/14 11/05/18 Naz Sandhu MD PCP - General Internal Medicine 11/06/18 [facility] 12/26/12 documented as of this encounter
--- OUTSIDE RECORDS SUMMARY | 2025-01-27 23:50 | XMS_ITS | Encounter Summary ---
Author Organization [facility] Prior to 12/20/2023 Address [address] [place] [address] Care Team Providers Care Cop Examiner Name Role Phone Vaishali Aguilar MD Primary Care Provider Ciarra Ramos Unavailable Unavailable Naz Sandhu MD Primary Care Provider Unavailabl e Encounter Details Date Type Department Care Team Description 09/01/2015 Cutter [employer]wind Reeds Report Medical Records [address] [place] [address] Monty Jimenez Social History Tobacco Use Types [...] on filedocumented in this encounter Care Teams Cop Examiner Relationship Specialty Start Date End Date Vaishali Aguilar MD PCP - General Internal Medicine 06/29/14 11/05/18 Naz Sandhu MD PCP - General Internal Medicine 11/06/18 [facility] 12/26/12 documented as of this encounter
--- OUTSIDE RECORDS SUMMARY | 2025-01-27 23:50 | XMS_ITS | Encounter Summary ---
Author Organization [facility] Prior to 12/20/2023 Address [address] [place] [address] Care Team Providers Care Ordering Box Operator Name Role Phone Vaishali Aguilar MD Primary Care Provider Ciarra Ramos Unavailable Unavailable Naz Sandhu MD Primary Care Provider Unavailabl e Encounter Details Date Type Department Care Team Description 10/05/2014 Senior Infrastructure Architect Report Medical Records [address] [place] [address] Kate Sandhu MD Social History Tobacco Use [...] on filedocumented in this encounter Care Teams Ordering Box Operator Relationship Specialty Start Date End Date Vaishali Aguilar MD PCP - General Internal Medicine 06/29/14 11/05/18 Naz Sandhu MD PCP - General Internal Medicine 11/06/18 [facility] 12/26/12 documented as of this encounter
--- OUTSIDE RECORDS SUMMARY | 2025-01-27 23:50 | XMS_ITS | Clinical Summary ---
Author Organization [facility] [employer] [facility] Address [address] [place] [address] Care Team Providers Care Water Pump Operator Name Role Phone Naz Sandhu MD Primary Care Provider [phone] Surgical History Surgery Date Site/Laterality Comments CHOLECYSTECTOMY 10/29/2002 PROCEDURE: HISTORICAL CHOLECYSTECTOMY; COMMENT: For gallstones TUBAL LIGATION 05/01/2004 PROCEDURE: HISTORICAL TUBAL LIGATION OVARIAN CYST REMOVAL 2013 Right PROCEDURE: IA OVARIAN CYSTECTOMY UNI/BI BREAST REDUCTION 2009 Bilateral PROCEDURE: IA BREAST REDUCTION LITHOTRIPSY 2012 Right PROCEDURE: HISTORICAL LITHOTRIPSY; COMMENT: kidney stone OTHER SURGICAL HISTORY PROCEDURE: HISTORICAL D&C; COMMENT: polyp UPPER GASTROINTESTINAL ENDOSCOPY 03/09/2015 PROCEDURE: IA UPPER GI ENDOSCOPY PERFORMED; COMMENT: diffuse gastric erythema with retained bile; H. pylori positive UPPER GASTROINTESTINAL ENDOSCOPY 02/01/2009 PROCEDURE: IA UPPER GI ENDOSCOPY PERFORMED; COMMENT: Normal esophagus, [...] age to complete this topic Care Teams Water Pump Operator Relationship Specialty Start Date End Date Naz Sandhu MD [address] [place] [id number] PCP - General Internal Medicine 11/06/18
--- OUTSIDE RECORDS SUMMARY | 2025-01-27 23:50 | XMS_ITS | Encounter Summary ---
Author Organization [facility] Prior to 12/20/2023 Address [address] [place] [address] Care Team Providers Care Tension Machine Operator Name Role Phone Vaishali Aguilar MD Primary Care Provider Ciarra Ramos Unavailable Unavailable Naz Sandhu MD Primary Care Provider Unavailabl e Encounter Details Date Type Department Care Team Description 03/22/2015 Concrete Worker Report Medical Records [address] [place] [address] Dulce Looney [address] [place] [address] Social History Tobacco Use Types Packs/Day Years [...] on filedocumented in this encounter Care Teams Tension Machine Operator Relationship Specialty Start Date End Date Vaishali Aguilar MD PCP - General Internal Medicine 06/29/14 11/05/18 Naz Sandhu MD PCP - General Internal Medicine 11/06/18 [facility] 12/26/12 documented as of this encounter
--- OUTSIDE RECORDS SUMMARY | 2025-01-27 23:50 | XMS_ITS | Encounter Summary ---
Author Organization [facility] Prior to 12/20/2023 Address [address] [place] [address] Care Team Providers Care Nozzle Operator Name Role Phone Vaishali Aguilar MD Primary Care Provider Ciarra Ramos Unavailable Unavailable Naz Sandhu MD Primary Care Provider Unavailabl e Encounter Details Date Type Department Care Team Description 01/27/2018 Telephone OBGYN - [employer] [address] [place] [address] Estrellita Pulliam MD [address] [place] [id number] Social History Tobacco Use Types Packs/Day Years Used Date Smoking Tobacco: Former Cigarettes 1 2 Q uit: 06/29/2009 Smokeless Tobacco: Never Alcohol Use Standard Drinks/Week Comments No 0 (1 standard drink = 0.6 oz pur e alcohol) Sex Assigned at Date Recorded Not on file documented as of this encounter Miscellaneous Notes * Telephone Encounter - Shelli Okeefe - 02/13/2018 1:30 PM EST Forward MassPAT report to Dr. Pulliam. AM * Telephone Encounter - Shelli Okeefe - 02/07/2018 10:26 AM EST Hysteroscopic polypectomy, D & [facility] Patient has been notified by phone and a letter has been sent to her. MD calendar has been updated and schedulers have been notified. AM * Telephone Encounter - Shelli Okeefe - 02/06/2018 3:51 PM EST Albert Zamora has been referred by Dr. Pulliam to Dr. Tom for preoperative consultation prior to undergoing surgery for hysteroscopic polypectomy, D & C with myosure. The consulting physician has been asked to review Albert Zamora's medical issues and to provide an opinion concerning the patients medical risks associated with surgery as well as any necessary preoperative and perioperative interventions. * Telephone Encounter - Shelli Okeefe - 02/06/2018 2:12 PM EST Left voice message for pt. AM * Telephone Encounter - Shelli Okeefe - 01/31/2018 9:38 AM EST Left voice message for pt. AM * Telephone Encounter - Estrellita Pulliam MD - 01/27/2018 10:16 AM EST BLOW UP OPERATOR SURGICAL BOOKING WORKSHEET 01/27/2018 Patient's Name: Albert Zamora : 1980 Payor information: Payor: [employer] FFS / Plan: [facility]IANCE / Product Type: MEDICAID RISK Allergies: Allergies Allergen Reactions ??? Cephalexin Itching/Pruritus LMP: No LMP recorded. Diagnosis: 1. Menorrhagia with regular cycle 2. Intermenstrual bleeding 3. Endometrial polyp Surgery Procedure Planned: Hysteroscopic polypectomy, D&C Special Instructions/Equipment needed: Myosure Type of Anesthesia: Could be MAC with paracervical block, anesthesia discretion Stay: Daystay Location:[facility] Rip/Mould Operator Needed? NO Time Needed: 45 min Urgency: elective Medicaid Sterilization (within 30 days - 180 days) and/or Medicare HI-1 form signed, if needed? N\A Date signed? NA Medical Clearance? YES Pre Op MUSIC AGENT visit: YES Pap Needed at Pre Op Visit? YES No orders of the defined types were placed in this encounter. ESTRELLITA PULLIAM MD documented in this encounter Plan of Treatment Scheduled Orders Name Type Priority Associated Diagnoses Orde r Schedule ELECTROCARDIOGRAM, COMPLETE (ECG) Cardiology Routine Preoperative examination 1 Occurrences starting 02/06/2018 until 02/06/2019 documented as of this encounter Results * (ABNORMAL) BASIC METABOLIC PANEL (02/14/2018 2:22 PM EST) GLUCOSE 122(H) 70 - 100 mg/dL 02/14/2018 4:25 PM EST [facility] Comment: Reference range applicable to fasting specimens only Based on recommendations from the ADA and AACE, the fasting glucose reference range has been changed to 70-100 mg/dL. This change is effective July 04, 2009 BUN 12 5 - 25 mg/dL 02/14/2018 4:25 PM EST [facility] CREAT 0.7 0.7 - 1.5 mg/dL 02/14/2018 4:25 PM EST [facility] GFR > 60 >60 02/14/2018 4:25 PM EST [facility] Comment: If patient is -Icelandic, multiply result by 1.21 Chronic Kidney Disease: < 60 ml/min/1.73 square meters Kidney Failure: < 15 ml/min/1.73 square meters Sodium 140 133 - 145 mEq/L 02/14/2018 4:25 PM EST [facility] Potassium 4.5 3.5 - 5.5 mEq/L 02/14/2018 4:25 PM EST [facility] Chloride 101 96 - 108 mEq/L 02/14/2018 4:25 PM EST [facility] CO2 26.5 21.0 - 32.0 mEq/L 02/14/2018 4:25 PM EST [facility] CALCIUM 10.4 8.5 - 10.5 mg/dL 02/14/2018 4:25 PM EST [facility] 02/14/2018 2:22 PM EST 02/14/2018 2:23 PM EST Estrellita Pulliam MD LAB [facility] [address] [facility] * (ABNORMAL) CBC (AUTO DIFF PLATELET) (02/14/2018 2:22 PM EST) WBC 7.5 4.8 - 10.8 x10-3 02/14/2018 2:35 PM EST [facility] RBC 4.6 3.8 - 4.8 x10-6 02/14/2018 2:35 PM EST [facility] HGB 12.4 11.5 - 16.0 g/dl 02/14/2018 2:35 PM EST [facility] HCT 35.7 35 - 47 % 02/14/2018 2:35 PM EST [facility] MCV 78.1(L) 79 - 98 fl 02/14/2018 2:35 PM EST [facility] MCH 27.1 27 - 32 pg 02/14/2018 2:35 PM EST [facility] MCHC 34.7 32 - 37 g/dl 02/14/2018 2:35 PM EST [facility] RDW 12.5 11 - 15 % 02/14/2018 2:35 PM EST [facility] PLT COUNT 296 130 - 400 x10-3 02/14/2018 2:35 PM EST [facility] MEAN PLATELET VOLUME 9.4 7 - 11 fl 02/14/2018 2:35 PM EST [facility] NEUT % 57.0 41 - 85 % 02/14/2018 2:35 PM EST [facility] LYMPH % 33.8 15 - 48 % 02/14/2018 2:35 PM EST [facility] MONO % 7.4 0 - 12 % 02/14/2018 2:35 PM EST [facility] EOS % 1.5 0 - 5 % 02/14/2018 2:35 PM EST [facility] BASO % 0.3 0 - 2 % 02/14/2018 2:35 PM EST [facility] 02/14/2018 2:22 PM EST 02/14/2018 2:23 PM EST Estrellita Pulliam MD LAB Performing Organization Address City/State/[facility] Co de Phone Number [facility] [address] [place] [address] documented in this encounter Visit Diagnoses Diagnosis Menorrhagia with regular cycle- Primary Excessive or frequent menstruation Intermenstrual bleeding Metrorrhagia Endometrial polyp Polyp of corpus uteri Preoperative examination Preoperative examination, unspecified Screening for deficiency anemia Screening for other and unspecified deficiency anemia documented in this encounter Care Teams Nozzle Operator Relationship Specialty Start Date End Date Vaishali Aguilar MD PCP - General Internal Medicine 06/29/14 11/05/18 Naz Sandhu MD PCP - General Internal Medicine 11/06/18 [facility] 12/26/12 documented as of this encounter
--- OUTSIDE RECORDS SUMMARY | 2025-01-27 23:50 | XMS_ITS | Encounter Summary ---
Author Organization [facility] Prior to 12/20/2023 Address [address] [place] [address] Care Team Providers Care Senior Sql Dba Name Role Phone Vaishali Aguilar MD Primary Care Provider Ciarra Ramos Unavailable Unavailable Naz Sandhu MD Primary Care Provider Unavailabl e Encounter Details Date Type Department Care Team Description 11/06/2016 Pattern Molder Report Medical Records [address] [place] [id number] Nitin Cisneros DO Social History Tobacco Use [...] on filedocumented in this encounter Care Teams Senior Sql Dba Relationship Specialty Start Date End Date Vaishali Aguilar MD PCP - General Internal Medicine 06/29/14 11/05/18 Naz Sandhu MD PCP - General Internal Medicine 11/06/18 [facility] 12/26/12 documented as of this encounter
--- OUTSIDE RECORDS SUMMARY | 2025-01-27 23:50 | XMS_ITS | Encounter Summary ---
Author Organization [facility] Prior to 12/20/2023 Address [address] [place] [address] Care Team Providers Care Geometry Tutor Name Role Phone Vaishali Aguilar MD Primary Care Provider Ciarra Ramos Unavailable Unavailable Naz Sandhu MD Primary Care Provider Unavailabl e Encounter Details Date Type Department Care Team Description 10/02/2018 Release of Information Medical Records [address] [place] [id number] Abstract, Provider Social History Tobacco Use Types [...] on filedocumented in this encounter Care Teams Geometry Tutor Relationship Specialty Start Date End Date Vaishali Aguilar MD PCP - General Internal Medicine 06/29/14 11/05/18 Naz Sandhu MD PCP - General Internal Medicine 11/06/18 [facility] 12/26/12 documented as of this encounter
--- OUTSIDE RECORDS SUMMARY | 2025-01-27 23:50 | XMS_ITS | Encounter Summary ---
Author Organization [facility] Prior to 12/20/2023 Address [address] [place] [address] Care Team Providers Care Continuous Improvement Analyst Name Role Phone Vaishali Aguilar MD Primary Care Provider Ciarra Ramos Unavailable Unavailable Naz Sandhu MD Primary Care Provider Unavailabl e Encounter Details Date Type Department Care Team Description 07/11/2016 Land Leveler Report Medical Records [address] [place] [address] Monty Jimenez Social History Tobacco Use Types [...] on filedocumented in this encounter Care Teams Continuous Improvement Analyst Relationship Specialty Start Date End Date Vaishali Aguilar MD PCP - General Internal Medicine 06/29/14 11/05/18 Naz Sandhu MD PCP - General Internal Medicine 11/06/18 [facility] 12/26/12 documented as of this encounter
--- OUTSIDE RECORDS SUMMARY | 2025-01-27 23:50 | XMS_ITS | Encounter Summary ---
Author Organization [facility] Prior to 12/20/2023 Address [address] [place] [address] Care Team Providers Care Horseradish Maker Name Role Phone Vaishali Aguilar MD Primary Care Provider Ciarra Ramos Unavailable Unavailable Naz Sandhu MD Primary Care Provider Unavailabl e Encounter Details Date Type Department Care Team Description 05/11/2016 Release of Information Medical Records [address] [place] [id number] Abstract, Provider Social History Tobacco Use Types [...] on filedocumented in this encounter Care Teams Horseradish Maker Relationship Specialty Start Date End Date Vaishali Aguilar MD PCP - General Internal Medicine 06/29/14 11/05/18 Naz Sandhu MD PCP - General Internal Medicine 11/06/18 [facility] 12/26/12 documented as of this encounter
--- OUTSIDE RECORDS SUMMARY | 2025-01-27 23:50 | XMS_ITS | Encounter Summary ---
Author Organization [facility] Prior to 12/20/2023 Address [address] [facility] [place] [address] Care Team Providers Care Squeegee Operator Name Role Phone Vaishali Aguilar MD Primary Care Provider Ciarra Ramos Unavailable Unavailable Naz Sandhu MD Primary Care Provider Unavailabl e Encounter Details Date Type Department Care Team Description 05/24/2015 Business Doc Medical Records [address] [place] [address] Abstract, Provider Social History Tobacco Use Types [...] on filedocumented in this encounter Care Teams Squeegee Operator Relationship Specialty Start Date End Date Vaishali Aguilar MD PCP - General Internal Medicine 06/29/14 11/05/18 Naz Sandhu MD PCP - General Internal Medicine 11/06/18 [facility] 12/26/12 documented as of this encounter
--- OUTSIDE RECORDS SUMMARY | 2025-01-27 23:50 | XMS_ITS | Encounter Summary ---
Author Organization [facility] Prior to 12/20/2023 Address [address] [place] [address] Care Team Providers Care Burlesque Dancer Name Role Phone Vaishali Aguilar MD Primary Care Provider Ciarra Ramos Unavailable Unavailable Naz Sandhu MD Primary Care Provider Unavailabl e Encounter Details Date Type Department Care Team Description 05/19/2015 Usability Specialist Report Medical Records [address] [place] [address] Monty Jimenez Social History Tobacco Use Types [...] on filedocumented in this encounter Care Teams Burlesque Dancer Relationship Specialty Start Date End Date Vaishali Aguilar MD PCP - General Internal Medicine 06/29/14 11/05/18 Naz Sandhu MD PCP - General Internal Medicine 11/06/18 [facility] 12/26/12 documented as of this encounter
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
--- OUTSIDE RECORDS SUMMARY | 2025-01-27 23:50 | XMS_ITS | Encounter Summary ---
Author Organization [facility] Prior to 12/20/2023 Address [address] [place] [address] Care Team Providers Care Slag Mixer Name Role Phone Vaishali Aguilar MD Primary Care Provider Ciarra Ramos Unavailable Unavailable Naz Sandhu MD Primary Care Provider Unavailabl e Encounter Details Date Type Department Care Team Description 03/06/2016 Marker Maker Report Medical Records [address] Social History Tobacco Use Types Packs/Day Years [...] on filedocumented in this encounter Care Teams Slag Mixer Relationship Specialty Start Date End Date Vaishali Aguilar MD PCP - General Internal Medicine 06/29/14 11/05/18 Naz Sandhu MD PCP - General Internal Medicine 11/06/18 [facility] 12/26/12 documented as of this encounter
--- OUTSIDE RECORDS SUMMARY | 2025-01-27 23:50 | XMS_ITS | Encounter Summary ---
Author Organization [facility] Prior to 12/20/2023 Address [address] [place] [address] Care Team Providers Care Solar Energy Sales Specialist Name Role Phone Vaishali Aguilar MD Primary Care Provider Ciarra Ramos Unavailable Unavailable Naz Sandhu MD Primary Care Provider Unavailabl e Reason for Visit * Reason Onset Date Comments APPOINTMENT 08/22/2017 Encounter Details Date Type Department Care Team Description 08/22/2017 Telephone Gastroenterology - [address] [address] Wayne Harman PA-C APPOINTMENT Social History Tobacco Use Types Packs/Day Years Used Date Smoking Tobacco: Former Cigarettes 1 2 Q uit: 06/29/2009 Smokeless Tobacco: Never Alcohol Use Standard Drinks/Week Comments No 0 (1 standard drink = 0.6 oz pur e alcohol) Sex Assigned at Date Recorded Not on file documented as of this encounter Miscellaneous Notes * Telephone Encounter - Maryann Nieves - 08/22/2017 3:24 PM EDT 1st attempt to schedule appointment, left message to schedule a F/U with Keith Ohara. documented in this encounter Plan of Treatment Not on file documented as of this encounter Visit Diagnoses Not on filedocumented in this encounter Care Teams Solar Energy Sales Specialist Relationship Specialty Start Date End Date Vaishali Aguilar MD PCP - General Internal Medicine 06/29/14 11/05/18 Naz Sandhu MD PCP - General Internal Medicine 11/06/18 [facility] 12/26/12 documented as of this encounter
--- OUTSIDE RECORDS SUMMARY | 2025-01-27 23:50 | XMS_ITS | Encounter Summary ---
Author Organization [facility] Prior to 12/20/2023 Address [address] [place] [address] Care Team Providers Care Security Operations Center Analyst Name Role Phone Vaishali Aguilar MD Primary Care Provider Ciarra Ramos Unavailable Unavailable Naz Sandhu MD Primary Care Provider Unavailabl e Encounter Details Date Type Department Care Team Description 03/12/2018 Orders Only Medical Records [address] [place] [address] Estrellita Campos MD [address] [place] [id number] Social History Tobacco Use Types Packs/Day Years Used Date Smoking Tobacco: Former Cigarettes 1 2 Q uit: 06/29/2009 Smokeless Tobacco: Never Alcohol Use Standard Drinks/Week Comments No 0 (1 standard drink = 0.6 oz pur e alcohol) Sex Assigned at Date Recorded Not on file documented as of this encounter Plan of Treatment Not on file documented as of this encounter Procedures Procedure Name Priority Date/Time Associated Diagnosis Comments OUTSIDE PATHOLOGY Routine 03/10/2018 documented in this encounter Results * OUTSIDE PATHOLOGY (03/10/2018) Estrellita Campos MD OUTSIDE LAB documented in this encounter Visit Diagnoses Not on filedocumented in this encounter Care Teams Security Operations Center Analyst Relationship Specialty Start Date End Date Vaishali Aguilar MD PCP - General Internal Medicine 06/29/14 11/05/18 Naz Sandhu MD PCP - General Internal Medicine 11/06/18 [facility] 12/26/12 documented as of this encounter
--- OUTSIDE RECORDS SUMMARY | 2025-01-27 23:50 | XMS_ITS | Encounter Summary ---
Author Organization [facility] Prior to 12/20/2023 Address [address] [place] [address] Care Team Providers Care Behavioral Pediatrician Name Role Phone Vaishali Aguilar MD Primary Care Provider Ciarra Ramos Unavailable Unavailable Naz Sandhu MD Primary Care Provider Unavailabl e Reason for Visit * Reason Comments E-prescribe Rx Request Encounter Details Date Type Department Care Team Description 03/09/2018 Refill Physiatry - [place] [address] [place] [address] Nitin Cisneros DO E-prescribe Rx Request Social [...] syndrome documented in this encounter Care Teams Behavioral Pediatrician Relationship Specialty Start Date End Date Vaishali Aguilar MD PCP - General Internal Medicine 06/29/14 11/05/18 Naz Sandhu MD PCP - General Internal Medicine 11/06/18 [facility] 12/26/12 documented as of this encounter
--- OUTSIDE RECORDS SUMMARY | 2025-01-27 23:50 | XMS_ITS | Encounter Summary ---
Author Organization [facility] Prior to 12/20/2023 Address [address] [place] [address] Care Team Providers Care Security Specialist Name Role Phone [facility] Unavailable Unavailable Naz Sandhu MD Primary Care Provider Unavailabl e Reason for Visit * Reason Comments E-prescribe Rx Request Encounter Details Date Type Department Care Team Description 03/01/2019 Refill Physiatry - [place] [address] [place] [address] Nitin Cisneros DO E-prescribe Rx Request Social [...] syndrome documented in this encounter Care Teams Security Specialist Relationship Specialty Start Date End Date Naz Sandhu MD PCP - General Internal Medicine 11/06/18 [facility] 12/26/12 documented as of this encounter
== END 2025-01-27 15:58 | disposition home or self-care (01) ==
LOC: HO.HMCC 15:19
PROVIDERS: PCP Internal Medicine; Visit Provider Internal Medicine
DX: Z23 Encounter for immunization (principal)

== ENCOUNTER → 2025-01-27 15:18 | Outpatient (BNVA) | payer OTHER, SELFPAY | PROVIDERS: PCP Internal Medicine; Visit Provider Internal Medicine | DX: M54.16 Radiculopathy, lumbar region (principal); R79.89 Other specified abnormal findings of blood chemistry; E04.9 Nontoxic goiter, unspecified; E66.01 Morbid (severe) obesity due to excess calories; E66.812 Obesity, class 2; Z68.36 Body mass index [BMI] 36.0-36.9, adult; Z23 Encounter for immunization | CPT/HCPCS: 90471; 90656; 99212; 99396 ==